=== PATIENT | male | born 1955 | race Caucasian/White ===

== ENCOUNTER → 2016-12-10 | Outpatient (CLI) | payer OTHER ==
[~2016-12-10] MED LIST: IOPAMIDOL (ISOVUE-300) 50 ML VIAL IV ONE
--- NOTE | 2016-12-10 11:07 | CT ---
CT Scan of the Abdomen triple phase (With Contrast) 0840 hours History: History of right nephrectomy for renal cell cancer. Cirrhosis. Hypodense lesion left lobe liver seen on ultrasound. Technique: Axial computed tomographic images of the abdomen were obtained precontrast and with the un eventful intravenous administration of 100 mL Isovue-300 contrast during arterial, venous, and delaye d phase. Oral contrast was also administered. Images were reviewed in multiple planes. Dose reduction techniques were utilized. CT Abdomen Findings: Lung bases: Normal. Liver: There is lobulated contour to the liver suggestive of underlying cirrhosis. No focal liver les ion is seen during all phases of imaging with attention left lobe lateral segment centrally to corres pond with abnormality seen on prior ultrasound exam. The liver measures 19 cm in length. Spleen: Mild to moderately enlarged measuring 16.1 x 15 x 9.4 cm. No focal splenic lesion is seen. Gallbladder and Bile Ducts: Numerous small less than 5 mm gallstones are layering in the dependent a spect of the gallbladder. There is no gallbladder wall thickening or pericholecystic fluid. There is no biliary ductal dilatation. Pancreas: Normal. Adrenals: Normal. Kidneys: Postoperative changes from previous right nephrectomy are noted. The left kidney enhances no rmally without evidence of focal mass. There is no evidence of renal calculus or hydronephrosis. Abdominal Aorta: No aneurysm. Bowel Loops: Normal. No bowel obstruction, ascites, or significant retroperitoneal lymphadenopathy. Skeletal system: Vertebral body heights are well-maintained. There are no significant lytic or scler otic osseous lesions. Mild disk bulges are noted at L4-L5 and L5-S1 along with facet hypertrophy cont ributes to underlying spinal stenosis. Impression: 1. Lobulated contour to the liver compatible with underlying cirrhosis. 2. No evidence of mass within the liver with attention left lobe lateral segment to correspond with a bnormality seen on recent ultrasound study. Consider followup ultrasound in 6 months to evaluate for any potential change. Alternatively, if a more aggressive approach is desired then MRI of the abdomen with contrast may be considered. 3. Mild to moderate splenomegaly. 4. Previous right nephrectomy.
== END ==
LOC: FIMAGING 07:57
PROVIDERS: ATTEND Internal Medicine
DX: K76.9 Liver disease, unspecified (principal); Z90.5 Acquired absence of kidney
CPT/HCPCS: Q9967

== ENCOUNTER 2017-06-09 06:31 | Inpatient (IN) | payer OTHER ==
[2017-06-09] MEDS ORDERED: NS 1,000 ML IV ONE ×2 (07:01→07:25)
[2017-06-09 07:13] LABS: % IMMATURE GRANULYOCYTES 0.4 % (0.0-1.1); ABSOLUTE IMMATURE GRANULOCYTES 0.02 10^3/uL (0.00-0.10); ADD DIFF? NO; ADD MORPH? NO; ADD SCAN? YES; APTT 29.9 SEC (23.0-38.0); ATYPICAL LYMPHOCYTE FLAG 0 (0-99); FRAGMENT RBC FLAG 0 (0-99); HEMATOCRIT 40.9 % (40.0-51.0); INR 1.5 (0.83-1.16); LEFT SHIFT FLG 0 (0-99); LIPEMIA HEMOLYSIS FLAG 90 (0-99); MEAN CELL HEMOGLOBIN 36.6 pg (27.9-34.1); MEAN CELL HEMOGLOBIN CONCENTR. 34.2 g/dL (32.4-36.7); MEAN CELL VOLUME 107.1 fL (81.5-99.8); MEAN PLATELET VOLUME 11.5 fL (8.7-11.7); PLATELET CLUMPS FLAG 10 (0-99); PLATELET COUNT 63 10^3/uL (150-400); PROTIME(PATIENT) 18.1 SEC (12.0-15.0); RED BLOOD CELL COUNT 3.82 10^6/uL (4.40-6.38); RED CELL DISTRIBUTION WIDTH 14.5 % (11.5-15.2)
--- NOTE | 2017-06-09 07:15 | CPEKG ---
Heart Rate: 110 RR Interval: 545 P-R Interval: 172 QRSD Interval: 82 QT Interval: 356 QTC Interval: 482 P Easton: 57 QRS Easton: 72 T Wave Easton: 38 EKG Severity - BORDERLINE ECG - EKG Impression: SINUS TACHYCARDIA EKG Impression: BORDERLINE PROLONGED QT INTERVAL Electronically Signed By: Javier Cross 09-Jun-2017 09:30:18
[2017-06-09 07:19] LABS: ALANINE AMINOTRANSFERASE 70 IU/L (21-72); ALBUMIN 3.5 g/dL (3.5-5.0); ALKALINE PHOSPHATASE 227 IU/L (38-126); ANION GAP 16 mEq/L (8-16); ASPARTATE AMINOTRANSFERASE 137 IU/L (17-59); BILIRUBIN,TOTAL 2.3 mg/dL (0.1-1.4); BILIRUBIN-CONJUGATED 1.3 mg/dL (0.0-0.5); CALCIUM 8.7 mg/dL (8.5-10.4); CARBON DIOXIDE 16 mEq/l (22-31); CHLORIDE 110 mEq/L (97-110); GLOMERULAR FILTRATION RATE 34; GLUCOSE 154 mg/dL (70-100); POTASSIUM 4.2 mEq/L (3.5-5.2); SODIUM 142 mEq/L (134-144); TOTAL PROTEIN 7.7 g/dL (6.3-8.2)
[2017-06-09 07:27] LABS: SCAN NEGATIVE
[2017-06-09 07:31] LABS: TROPONIN I < 0.012 ng/mL (0-0.034)
[2017-06-09 07:40] LABS: ETHANOL SERUM 358 mg/dL (0-10)
[2017-06-09 08:03] LABS: LACGHOST ORDER
--- NOTE | 2017-06-09 08:18 | EDPHY ---
H & P Time Seen by Provider: 06/09/17 06:59 HPI/ROS: CC--AMS Patient is a 61-year-old male presents per EMS with complaint of confusion that was present upon awakening this morning. Drank alcohol last night. He is stumbling ataxic and not making sense and is confused. He has a history of sepsis from cellulitis of his legs. He was apparently normal yesterday. They are not aware of fever or cough or urinary symptoms. No vomiting. They are not aware that he has fallen or struck his head. Complete review of systems significant for ataxia, confusion Past Medical/Surgical History: Past medical history significant for pulmonary embolus, obesity, bacterial infection lower leg requiring surgery and causing sepsis. 1 kidney secondary to nephrectomy for kidney cancer. Social History: , nonsmoker, recent alcohol Smoking Status: Never smoked Physical Exam: General Appearance: Alert well-developed male moderate distress vital signs show temp 37.4degrees, heart rate 117, blood pressure 137/46 Eyes: Pupils equal and round no pallor or injection. ENT, Mouth: Mucous membranes are moist. Respiratory: There are no retractions, lungs are clear to auscultation. Cardiovascular: Regular rate and rhythm. Gastrointestinal: Abdomen is soft and nontender, no masses, bowel sounds normal. Neurological: Awake and alert, sensory and motor exams grossly normal. Skin: Warm and dry, no rashes. Musculoskeletal: Neck is supple nontender. Extremities both extremities are swollen and erythematous rash to both legs consistent with cellulitis Psychiatric: Patient is oriented to person Constitutional: Initial Vital Signs Temperature (C) 37.4 C 06/09/17 06:35 Heart Rate 117 H 06/09/17 06:35 Respiratory Rate 28 H 06/09/17 06:35 Blood Pressure 137/46 H 06/09/17 06:35 O2 Sat (%) 93 06/09/17 06:35 O2 Delivery Mode Nasal Cannula O2 (L/minute) 2 Allergies/Adverse Reactions: No Known Allergies Allergy (Verified 07/16/16 08:35) Home Medications: Medication Instructions Recorded Lisinopril/Hctz 20/12.5MG 1 ea PO DAILY 07/16/16 [Zestoretic/Prinzide 20/12.5MG (*)] Multivitamins [Multivitamin (*)] 1 each PO DAILY 07/16/16 amLODIPine BESYLATE [Norvasc 5 mg 5 mg PO DAILY 07/16/16 (*)] Medical Decision Making - Diagnostics EKG Interpretation: EKG interpreted by me shows sinus tachycardia with normal interval axis. QRS is normal there is no significant ST elevation or depression. The rate is 110 Imaging Results: Imaging Impressions Head CT 06/09/17 07:24 Impression: 1. No evidence for acute intracranial abnormality. 2. Mild periventricular and deep hemispheric white matter change that can be seen with small vessel ischemic disease. 3. Mild generalized cerebral atrophy. Head CT discussed with Dr. Albarado and reviewed by me shows atrophy but otherwise nonacute Procedures: IV normal saline, monitor. Sepsis workup. Sepsis is identified. Patient is given fluid bolus. He is given Zosyn as antibiotic. ED Course/Re-evaluation: Serial evaluations patient remains stable in largely unchanged. The patient, his and son and I discussed imaging, lab results, treatment plan including admission and further evaluation. They expressed understanding and agreement I consulted and discussed case Dr. weiss, hospitalist, who agrees to the admission. We agree to put the patient in the ICU. Differential Diagnosis: The patient has evidence of sepsis. He has had previous sepsis secondary to leg cellulitis. He does have evidence for cellulitis today an elevated lactate. He has altered mental status and has alcohol intoxication with a blood alcohol of approximately 360. The patient also has liver failure with elevated ammonia level which could cause or contribute to altered mental status. He has 1 kidney with elevated creatinine. Critical Care Time: Critical care time exclusive procedures 40 minutes - Data Points Laboratory Results: Laboratory Results 06/09/17 06:50 06/09/17 06:50 06/09/17 06/09/17 06/09/17 06:50 06:50 06:50 WBC RBC Hgb POC Hgb Hct POC Hct MCV MCH MCHC RDW Plt Count MPV Neut % (Auto) Lymph % (Auto) Young % (Auto) Eos % (Auto) Baso % (Auto) Nucleat RBC Rel Count Absolute Neuts (auto) Absolute Lymphs (auto) Absolute Monos (auto) Absolute Eos (auto) Absolute Basos (auto) Absolute Nucleated RBC Immature Gran % Immature Gran # PT 18.1 SEC H SEC (12.0-15.0) INR 1.50 H (0.83-1.16) APTT 29.9 SEC SEC (23.0-38.0) VBG Lactic Acid POC Sodium Sodium 142 mEq/L mEq/L (134-144) POC Potassium Potassium 4.2 mEq/L mEq/L (3.5-5.2) POC Chloride Chloride 110 mEq/L mEq/L (97-110) Carbon Dioxide 16 mEq/l L mEq/l (22-31) Anion Gap 16 mEq/L mEq/L (8-16) POC BUN BUN 27 mg/dL H mg/dL (7-23) Creatinine 2.0 mg/dL H mg/dL (0.7-1.3) POC Creatinine Estimated GFR 34 Glucose 154 mg/dL H mg/dL (70-100) POC Glucose Calcium 8.7 mg/dL mg/dL (8.5-10.4) Total Bilirubin 2.3 mg/dL H mg/dL (0.1-1.4) Conjugated Bilirubin 1.3 mg/dL H mg/dL (0.0-0.5) Unconjugated Bilirubin 1.0 mg/dL mg/dL (0.0-1.1) AST 137 IU/L H IU/L (17-59) ALT 70 IU/L IU/L (21-72) Alkaline Phosphatase 227 IU/L H IU/L (38-126) Ammonia 42.0 uMOL/L H uMOL/L (9.0-30.0) Troponin I < 0.012 ng/mL ng/mL (0-0.034) NT-Pro-B Natriuret Pep 76 pg/mL pg/mL (0-125) Total Protein 7.7 g/dL g/dL (6.3-8.2) Albumin 3.5 g/dL g/dL (3.5-5.0) Ethyl Alcohol 358 mg/dL H mg/dL (0-10) 06/09/17 06/09/17 06/09/17 06:50 06:50 06:44 WBC 5.22 10^3/uL 10^3/uL (3.80-9.50) RBC 3.82 10^6/uL L 10^6/uL (4.40-6.38) Hgb 14.0 g/dL g/dL (13.7-17.5) POC Hgb 16.0 gm/dL gm/dL (13.7-17.5) Hct 40.9 % % (40.0-51.0) POC Hct 47 % % (40-51) MCV 107.1 fL H fL (81.5-99.8) MCH 36.6 pg H pg (27.9-34.1) MCHC 34.2 g/dL g/dL (32.4-36.7) RDW 14.5 % % (11.5-15.2) Plt Count 63 10^3/uL L 10^3/uL (150-400) MPV 11.5 fL fL (8.7-11.7) Neut % (Auto) 82.6 % H % (39.3-74.2) Lymph % (Auto) 14.0 % L % (15.0-45.0) Young % (Auto) 1.7 % L % (4.5-13.0) Eos % (Auto) 1.1 % % (0.6-7.6) Baso % (Auto) 0.2 % L % (0.3-1.7) Nucleat RBC Rel Count 0.0 % % (0.0-0.2) Absolute Neuts (auto) 4.31 10^3/uL 10^3/uL (1.70-6.50) Absolute Lymphs (auto) 0.73 10^3/uL L 10^3/uL (1.00-3.00) Absolute Monos (auto) 0.09 10^3/uL L 10^3/uL (0.30-0.80) Absolute Eos (auto) 0.06 10^3/uL 10^3/uL (0.03-0.40) Absolute Basos (auto) 0.01 10^3/uL L 10^3/uL (0.02-0.10) Absolute Nucleated RBC 0.00 10^3/uL 10^3/uL (0-0.01) Immature Gran % 0.4 % % (0.0-1.1) Immature Gran # 0.02 10^3/uL 10^3/uL (0.00-0.10) PT INR APTT VBG Lactic Acid 4.5 mmol/L H mmol/L (0.7-2.1) POC Sodium 142 mEq/L mEq/L (134-144) Sodium POC Potassium 4.0 mEq/L mEq/L (3.3-5.0) Potassium POC Chloride 103 mEq/L mEq/L (97-110) Chloride Carbon Dioxide Anion Gap POC BUN 27 mg/dL H mg/dL (7-23) BUN Creatinine POC Creatinine 2.3 mg/dL H mg/dL (0.7-1.3) Estimated GFR Glucose POC Glucose 156 mg/dL H mg/dL (70-100) Calcium Total Bilirubin Conjugated Bilirubin Unconjugated Bilirubin AST ALT Alkaline Phosphatase Ammonia Troponin I NT-Pro-B Natriuret Pep Total Protein Albumin Ethyl Alcohol Medications Given: Discontinued Medications Sodium Chloride (Ns) 1,000 mls @ 0 mls/hr IV ONCE ONE; Wide Open PRN Reason: Protocol Stop: 06/09/17 07:02 Last Admin: 06/09/17 07:30 Dose: 1,000 mls Sodium Chloride (Ns) 1,000 mls @ 0 mls/hr IV ONCE ONE; Wide Open PRN Reason: Protocol Stop: 06/09/17 07:26 Last Admin: 06/09/17 09:00 Dose: 1,000 mls Point of Care Test Results: 06/09/17 06:44 POC Sodium 142 POC Potassium 4.0 POC Chloride 103 POC BUN 27 H POC Creatinine 2.3 H POC Glucose 156 H Departure - Departure Disposition: [facility] Inpatient Acute Clinical Impression: elevated lactate Cellulitis Qualifiers: Site of cellulitis: extremity Site of cellulitis of extremity: lower extremity Laterality: unspecified laterality Qualified Code(s): L03.119 - Cellulitis of unspecified part of limb Altered mental status Qualifiers: Altered mental status type: disorientation Qualified Code(s): R41.0 - Disorientation, unspecified Alcohol intoxication Qualifiers: Complication of substance-induced condition: with unspecified complication Qualified Code(s): F10.929 - Alcohol use, unspecified with intoxication, unspecified Condition: Fair
[2017-06-09] MEDS ORDERED: SODIUM CHLORIDE IV ONE (08:38)
[2017-06-09] MEDS ORDERED: PIPERACILLIN/TAZO 4.5 GM/DEX 100 ML IV ONE (08:38)
[2017-06-09] MEDS ORDERED: ONDANSETRON DISINTEGRATING 4 MG TAB PO PRN (11:01)
[2017-06-09] MEDS ORDERED: ONDANSETRON 4 MG/2 ML VIAL IVP PRN (11:01)
--- NOTE | 2017-06-09 11:51 | GHP ---
[f rep st] HISTORY AND PHYSICAL DATE OF ADMISSION: 06/09/2017 CHIEF COMPLAINT: Confusion. HISTORY OF PRESENT ILLNESS: This is a 61-year-old man with a history of severe cellulitis with a sm all amount of necrotizing fasciitis who presents with confusion. Apparently, last night, they had a big constitution party and he consumed a lot of alcohol. He awoke this morning confused, stumbling. He denies any nausea, vomiting, headache, chest pain, shortness of breath, abdominal pain. He does have somew hat chronic venostasis issues on his bilateral legs. He thinks that his left leg looks redder than it normally does. It is somewhat painful. He also notes that he had significant chills this poojanin g. PAST MEDICAL/SURGICAL HISTORY: 1. Hypertension. 2. History of a PE in 2006, currently not on anticoagulation. 3. Morbid obesity. 4. History of cellulitis as well as necrotizing fasciitis, status post [place]brid[place] [address] Dashawn carr. 5. Renal cell carcinoma, status post nephrectomy. 6. Obstructive sleep apnea. MEDICATIONS: Please see medication reconciliation. ALLERGIES: No known drug allergies. FAMILY HISTORY: Denies. SOCIAL HISTORY: Drinks alcohol occasionally. Does not smoke. REVIEW OF SYSTEMS: 10-point review of systems is conducted and is negative except per HPI. PHYSICAL EXAM: VITAL SIGNS: Initial blood pressure 137/46, initial heart rate 117, initial respira tion rate 23, satting 93% on room air, temperature is 37.4. GENERAL: The patient is a pleasant, ob gonzalo man who appears somewhat uncomfortable. He is answering questions slightly slowly. HEENT: Claire ws him to be normocephalic, atraumatic. CARDIOVASCULAR: Shows him to be borderline tachycardic. T here are no murmurs, rubs, or gallops. PULMONARY: Shows him to be quite tachypneic, though his helene gs are clear to auscultation bilaterally. ABDOMEN: Obese. Otherwise, soft, nontender, nondistende d. SKIN: Shows his bilateral lower extremities to have somewhat chronic dermatitis with a dark red appearance. On his left lower extremity, he has progressive erythema, which is warm as well as luisito ewhat tender to palpation. He does have some pain beyond the line of erythema as well. : Shows no Hinkle. NEUROLOGIC: Shows him to be alert and oriented x3. He is answering questions slightly s lowly. He does not have a focal neurologic exam. PSYCHIATRIC: Shows normal mood and affect. LABS: White count is 5.2, platelets are 63, MCV is 107. INR is 1.5. Initial lactate was 4.5, subs equent lactate was 4.4. Creatinine is 2.0, bicarb is 16, total bili is 2.3, alk phos is 227, ammoni a is 42. Troponins negative. Procalcitonin is pending. Blood alcohol level at 6:50 this morning w as 0.358. DATA: 1. I discussed with Dr. Arechiga, who will consult. 2. I reviewed his head CT, which shows nothing acute. 3. I personally viewed and interpreted his chest x-ray, which shows him to be obese but no acute ca rdiopulmonary disease. 4. EKG, which I personally viewed and interpreted, shows sinus tachycardia. He does have a borderl ine prolonged QT interval. IMPRESSION AND PLAN: 61-year-old man who presents with severe sepsis. 1. Severe sepsis: Kidney injury as well as significant lactic acidosis. He is undergoing appropri ate volume resuscitation currently. We will place a peripherally inserted central catheter line for stable intravenous access. I think the source is his left lower extremity. 2. Left lower extremity cellulitis: He does have a history of necrotizing fasciitis, status post d ebridement. We will put him on empiric vancomycin and Zosyn. I have asked Dr. Arechiga to consult as well to consider debridement. We will place a nonurgent infectious disease consult, also. 3. Alcohol abuse: He does have a significant blood alcohol level currently. I do not think that i s causing his underlying presentation, though it may complicate his care. He did not have an issue with withdrawing on his past hospitalization. He seems to be more of a binge drinker than a chronic daily user. We will follow this very closely, provide thiamine for now. I am concerned about putt ing him on Clinical [place] Withdrawal Assessment, given his initial presentation with encephalopa thy. He may need to be placed on Clinical [place] Withdrawal Assessment at some point. 4. Thrombocytopenia: This is somewhat of a chronic problem, though acutely worse. May have a slig ht component of disseminated intravascular coagulation with his elevated INR and low platelets. We will check a DIC panel. 5. Elevated MCV: This would argue more for chronic daily use of alcohol. As above, we will follow closely for withdrawal. 6. Encephalopathy: I think that this is best explained by acute infection. Certainly, also consid er alcohol intoxication and withdrawal. CT head was negative. 7. Morbid obesity. 8. Acute kidney injury: He only has 1 kidney. This is due to a nephrectomy for renal cell carcino ma. Follow this closely. 9. History of a pulmonary embolus in 2006: He is currently off anticoagulation. 10. Code status: He would like to be full code. /[id number]/MODL
[2017-06-09] MEDS ORDERED: VANCOMYCIN 1.5 GM in D5W 250 ML IV ONE (12:00)
[2017-06-09 12:17] LABS: % IMMATURE GRANULYOCYTES 1.7 % (0.0-1.1); ABSOLUTE IMMATURE GRANULOCYTES 0.12 10^3/uL (0.00-0.10); ADD DIFF? NO; ADD MORPH? NO; ADD SCAN? NO; ATYPICAL LYMPHOCYTE FLAG 0 (0-99); FRAGMENT RBC FLAG 0 (0-99); HEMATOCRIT 34.6 % (40.0-51.0); HEMOGLOBIN 12.2 g/dL (13.7-17.5); LEFT SHIFT FLG 10 (0-99); LIPEMIA HEMOLYSIS FLAG 90 (0-99); MEAN CELL HEMOGLOBIN 37.7 pg (27.9-34.1); MEAN CELL HEMOGLOBIN CONCENTR. 35.3 g/dL (32.4-36.7); MEAN CELL VOLUME 106.8 fL (81.5-99.8); MEAN PLATELET VOLUME 12.3 fL (8.7-11.7); PLATELET CLUMPS FLAG 10 (0-99); RED BLOOD CELL COUNT 3.24 10^6/uL (4.40-6.38); RED CELL DISTRIBUTION WIDTH 14.6 % (11.5-15.2)
[2017-06-09 12:19] LABS: PLATELET COUNT 44 10^3/uL (150-400)
[2017-06-09 12:24] LABS: INR 1.77 (0.83-1.16); PROTIME(PATIENT) 20.7 SEC (12.0-15.0)
[2017-06-09 12:25] LABS: APTT 30.7 SEC (23.0-38.0); FIBRINOGEN 246 mg/dL (214-456)
[2017-06-09 12:30] LABS: ALANINE AMINOTRANSFERASE 64 IU/L (21-72); ALBUMIN 2.6 g/dL (3.5-5.0); ALKALINE PHOSPHATASE 140 IU/L (38-126); ANION GAP 14 mEq/L (8-16); ASPARTATE AMINOTRANSFERASE 122 IU/L (17-59); BILIRUBIN,TOTAL 2.7 mg/dL (0.1-1.4); BILIRUBIN-CONJUGATED 1.4 mg/dL (0.0-0.5); BILIRUBIN-UNCONJUGATED 1.3 mg/dL (0.0-1.1); CALCIUM 7.7 mg/dL (8.5-10.4); CARBON DIOXIDE 14 mEq/l (22-31); CHLORIDE 110 mEq/L (97-110); GLOMERULAR FILTRATION RATE 34; GLUCOSE 115 mg/dL (70-100); POTASSIUM 4.3 mEq/L (3.5-5.2); SODIUM 138 mEq/L (134-144); TOTAL PROTEIN 6.1 g/dL (6.3-8.2)
[2017-06-09 12:39] LABS: PLATELET COUNT 44 10^3/uL (150-400); PLATELET ESTIMATE DECREASED (ADEQ)
[2017-06-09 13:11] LABS: COLOR YELLOW; LEUKOCYTE ESTERASE,URINE NEGATIVE (NEGATIVE); NITRITE,URINE NEGATIVE (NEGATIVE)
[2017-06-09] MEDS ORDERED: HEPARIN 5,000 UNIT/0.5 ML SYR SC SCH (14:00)
--- NOTE | 2017-06-09 14:21 | GCON ---
[f rep st] CONSULTATION DATE OF CONSULTATION: 06/09/2017 CHIEF COMPLAINT: Question necrotizing fasciitis. REQUESTING PHYSICIAN: Dr. Elias Krueger. HISTORY OF PRESENT ILLNESS: The patient is a 61-year-old man well known to me as I debrided his leg and performed split-thickness skin graft in 2013. He presented to the hospital today due to confusion. He reports that he has pain in his left leg and chills. He presented to the emergency room where he was tachycardic. PAST MEDICAL HISTORY: 1. Hypertension. 2. History of PE in 2006. 3. Morbid obesity. 4. History of cellulitis and necrotizing fasciitis. 5. Renal cell carcinoma, status post nephrectomy. 6. Obstructive sleep apnea. ALLERGIES: No known drug allergies. PAST SURGICAL HISTORY: Knee arthroscopy, nephrectomy, tonsillectomy. 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 He previously used tobacco. He is FAMILY HISTORY: Significant for breast cancer in his mother. REVIEW OF SYSTEMS: Significant for weakness, some confusion, chills, otherwise , 10-point review of systems negative. PHYSICAL EXAMINATION: VITAL SIGNS: Reviewed. He is afebrile. He is tachycardic. He is normotensive. GENERAL: Pleasant, morbidly obese man, sitting up in bed, in ICU with family at bedside. HEENT: Normocephalic. No gross hearing deficits. Mucous membranes moist. Pupils equal and round. No scleral icterus. LUNGS: Clear to auscultation bilaterally. No increased work of breathing. CARDIAC: Regular rate. EXTREMITIES: He has venous stasis changes on bilateral lower extremities but no obvious wounds. He does have some scaling lesions. Both of his lower legs are warm to the touch, left more than right. He is most tender to his left posterior calf. Mild erythema on left leg. IMPRESSION AND PLAN: The patient is a 61-year-old man with a history of nec fasc who presented with confusion. His bilirubin is elevated as well as his ammonia. Platelets are low at 44. I do not see any signs of necrotizing fasciitis, nor indication to go to the operating room. I do suggest an ultrasound of his leg to rule out DVT as he is tender at the calf. I will continue to follow. /[id number]/MODL MTDD
[2017-06-09] MEDS ORDERED: LIDOCAINE 1% 300 MG/30 ML SDV ONE (14:26)
[2017-06-09] MEDS ORDERED: NOREPINEPHRINE/NS 500 ML IV SCH (14:30)
[2017-06-09] MEDS ORDERED: PHENYLEPHRINE HCL 50 MG in D5W 250 ML IV SCH (14:30)
[2017-06-09] MEDS: PIPERACILLIN/TAZO 3.375 GM/DEX 50 ML IV SCH ×2 (14:45→22:08)
[2017-06-09] MEDS: THIAMINE HCL 100 MG in NS 100 ML IV SCH (14:54)
--- NOTE | 2017-06-09 15:02 | HOSPPROG ---
Hospitalist Progress Note Assessment/Plan: Patient visited again in the ICU. He is hypotensive, has a climbing lactate despite aggressive IVF, has ongoing tachypnea. Dr Arechiga does not feel he has necrotizing fasciitis, and his leg appears slightly better on repeat assessment. Consider other causes of hypotension (cardiac, PE). Plan: - add clinda for possible strep cellulitis - check echo, LE US - PICC placed, start pressors - critical care c/s - discussed with Dr Degroot additional 40 mins of floor critical care time managing septic shock in addition to time spent on initial admission Objective: Vital Signs Temp Pulse Resp BP Pulse Ox 37.6 C 103 H 26 H 103/67 93 06/09/17 09:52 06/09/17 10:09 06/09/17 10:09 06/09/17 10:09 06/09/17 10:09 Laboratory Results 06/09/17 11:50 06/09/17 11:50 06/08/17 06/09/17 06/10/17 05:59 05:59 05:59 Intake Total 2100 Balance 2100 PT 20.7 SEC (12.0-15.0) H 06/09/17 11:50 INR 1.77 (0.83-1.16) H 06/09/17 11:50 ICD10 Worksheet Patient Problems: Problems Problem Status Onset Sepsis Acute Necrotizing fasciitis Acute Hypotension Acute Dizziness Acute Dyspnea Acute Cellulitis Acute Altered mental status Acute Alcohol intoxication Acute
[2017-06-09 15:24] LABS: MIXED VENOUS O2 SATURATION 73 % (65-75)
[2017-06-09] MEDS: CLINDAMYCIN 600 MG/DEXTROSE 50 ML IV SCH ×2 (15:51→20:58)
[2017-06-09] MEDS: LORazepam 2 MG/ML INJ IVP PRN (16:07)
--- NOTE | 2017-06-09 16:57 | GCON ---
[f rep st] CONSULTATION CRITICAL CARE CONSULT DATE OF CONSULTATION: 06/09/2017 HISTORY OF PRESENT ILLNESS: The patient is a 61-year-old male with a history of alcoholism and prev ious necrotizing fasciitis of his left lower extremity that required skin grafting. He had apparent ly consumed quite a bit of alcohol last night and woke this morning quite confused with lots of chil ls. His noted that his left leg had significant redness that was very similar to his previous episode of necrotizing fasciitis. In addition, he said that his blood pressure was quite low at ramez e and came to the emergency department. His blood pressure was 137/46 initially, but his lactate wa s quite high at a little over 4. In any case, he was afebrile and had no white count, but they were quite concerned about necrotizing fasciitis. He was started on the severe sepsis protocol and give n some IV fluids, but when he landed in the intensive care unit, his blood pressure was indeed low w ith a systolic in the 70s. He received 30 mL/kg fluid bolus, and that normalized his blood pressure . He was less confused, and his said that the erythema was substantially better, and this was about 3 or 4 hours after receiving Zosyn, vancomycin, and clindamycin. In terms of other localizing symptoms, the patient said that he had no neck pain or visual changes. He had no nasal congestion, postnasal drip, or recent sinusitis. No sore throat. No shortness of breath. No known sick contacts. No cough, no sputum production, no hemoptysis. No chest pain. No palpitations. No abdominal pain. No nausea, vomiting. No diarrhea. No recent antibiotics. No u rinary frequency or dysuria. No recent trauma. No recent infections of his lower extremities. He does have sleep apnea and said that he is pentecostal with his CPAP though has a fair amount of lower extremity edema and is morbidly obese. REVIEW OF SYSTEMS: Otherwise negative PAST MEDICAL HISTORY: 1. Hypertension. 2. Pulmonary embolism in 2006. 3. Morbid obesity. 4. Necrotizing fasciitis. 5. Renal cell carcinoma, status post nephrectomy. 6. Chronic renal insufficiency with a baseline creatinine about 1.3-1.7. 7. Obstructive sleep apnea. PAST SURGICAL HISTORY: Includes fasciotomy as described above with a skin graft [place] [address] Antoni palm. SOCIAL HISTORY: He does drink alcohol occasionally. No tobacco. There may have been an alcohol pr oblem. FAMILY HISTORY: Noncontributory at this time. ALLERGIES: None. MEDICATIONS: At this time include clindamycin, Zofran, Zosyn, vancomycin, and normal saline with kingsley bcutaneous heparin. PHYSICAL EXAMINATION: VITAL SIGNS: He remained afebrile at 37.6, blood pressure was 103/67, heart rate of 103, respiratory rate 26, oxygen saturation 93% on 2 L. GENERAL: He was, in fact, morbidly obese but was awake, alert, and was tachypneic but said he was not short of breath and did not appe ar to be in any distress. He was alert and oriented x3 and able to speak in full sentences. HEENT: Pupils are equally round, reactive to light, nonicteric, and noninjected. Mucous membranes are mo ist without erythema or exudate. NECK: Supple without adenopathy or jugular vein distention. Karlene th sounds were clear to auscultation bilaterally without wheezes, rubs, or rales. HEART: Appeared to have a regular rate and rhythm although sounds were distant. I did not detect any obvious murmur . ABDOMEN: Soft, nontender, nondistended without obvious hepatomegaly and no signs of cirrhosis. EXTREMITIES: Showed bilateral severe edema. There was skin graft in the left lower extremity with patchy erythema, very light pink erythema toward the knee which looks like he had a previous knee kingsley rgery. There was not a clear line of demarcation in this region. There were also areas of erythema on the right lower extremity that were lower toward his ankle in an area that was about 5 x 10 cm. Both legs were warm and dry without cyanosis. NEUROLOGICAL: Grossly nonfocal including cranial ne rves, deep tendon reflexes. OBJECTIVE DATA: White count that was 5.2 at 6:50 this morning up to 7.2 at 11:50. His hematocrit w as 34.6, platelets of 44, INR 1.7. D-dimer was positive. Lactate was 4.5 this morning again at 06: 50. It was up to 4.8 at 11:50, and at 1500, back down to 4.5. Basic metabolic panel was remarkable for a sodium of 138, potassium 4.3, chloride 110, bicarb of 14, BUN 28, creatinine 2.0. Total bili yang was 2.7. AST was 122, down from 137. ALT was 64, alkaline phosphatase 140. BNP was 76. Tro ponin was negative. Ammonia was 42. Procalcitonin was 0.68. Urinalysis was unremarkable. Alcohol was 358 this morning at 0650. A chest x-ray was unremarkable. ASSESSMENT AND PLAN: 1. Hypotension: This certainly could be due to sepsis although there are multiple confounding vari wanda here. Could also be due to hypovolemia though the clinical history does not support this very well. Lactic acidosis can be seen in alcohol but usually involves ketones that may be present in t he serum and not in the urine. His lack of a fever and white count is also incongruent with a septi c shock picture. In either case, I think given the erythema reported by both him and his and t he lactic acidosis, I think that treatment with broad-spectrum antibiotics which he is getting now i s appropriate including clindamycin. I do not think there is necrotizing fasciitis. At this point, he has been evaluated by Dr. Arechiga who also agrees. An ultrasound is pending to look for DVT since that has been an issue in the past. The procalcitonin level is 0.68. There is probable bacterial infection, and this is supportive of doing this moving forward. 2. Confusion: This certainly could have been related to his hypotension which is now resolved as w ell as ongoing alcoholism. He appears to be perfectly stable at this time. 3. Acute kidney injury with a solitary kidney from his previous nephrectomy. This is likely relate d to his hypotension. His creatinine is only up slightly to 2 from a high of 1.7 at baseline to 2.0 . He has quite a bit of urine output at this time. I think we should simply monitor this. 4. Thrombocytopenia: This looks to be acute on chronic. He has known splenomegaly on an abdominal CT scan from December of this year, and this again could be related to sepsis and disseminated intra vascular coagulation which is very common. This should resolve on its own. My suspicion for hepari n-induced thrombocytopenia is quite low as well as drug induced issues or thrombotic thrombocytopeni c purpura. Ongoing monitoring is appropriate for this particular problem. 5. Abnormal liver function tests with an elevated AST and INR: This is consistent with a low level of alcoholic hepatitis and should resolve on its own. Though I did not calculate his discriminant function at this time, I do not feel that steroids would be useful currently. A total of about 65 minutes of critical care time was required in the evaluation of this patient wit h multiorgan dysfunction. /[id number]/MODL
--- NOTE | 2017-06-09 17:08 | ECHO ---
[id number] + + [address] : : [place] [address] : : [phone] + + Adult Echocardiographic Report + -------+ :Name: JOEL FABIO TStudy Date: 06/09/2017 04:58 PM : : Hospital Admission Number: [id number] Locati on: 248: :: 1955 Gender: Male : :Age: 61 yrs Race: WH : :Reason For Study: Hypotension/Sepsis : + -------+ MMode/2D Measurements \T\ Calculations LVIDd: 4.3 cm EDV(Teich): 84.7 ml Ao root diam: 3.3 cm LA dimension: 4.2 cm Normal Measurement Values: + + :LVIDd (3.5-5.7cm) IVSd (0.6-1.1cm) LVPWd (0.6-1.1cm) Aortic Root (2.0-3.7cm)Left Atrium (1.5-4.0cm): :LV Vol(d) (76-115ml) LV Vol(s) (29-48ml) Ejec Fraction (50-65%)PV Brandon (0.6- 1.2m/s) TV Brandon (0.4-1.0m/s) : :MV E Brandon (0.8-1.0m/s)MV A Brandon (0.3-1.0m/s)LVOT Brandon (0.7-1.2m/s) Asc Ao Brandon ( 0.9-1.8m/s) : + + Doppler Measurements \T\ Calculations MV E max brandon: 67.6 cm/sec Ao V2 max: 149.3 cm/sec TR max brandon: 263.3 cm/sec MV A max brandon: 65.6 cm/sec Ao max P.9 mmHg TR max P.7 mmHg MV E/A: 1.0 RAP systole: 5.0 mmHg RVSP(TR): 32.7 mmHg Left Ventricle The left ventricle is normal in size. The left ventricle is hyperdynamic. Ejection Fraction = 70-75%. Right Ventricle The right ventricle is normal size. Atria The left atrial size is normal. Right atrial size is normal. Mitral Valve The mitral valve is normal. Tricuspid Valve The tricuspid valve is not well visualized. There is trace tricuspid regurgitation. Right ventricular systolic pressure is 33mmHg. Right ventricular systolic pressure is normal. Aortic Valve The aortic valve opens well. Pulmonic Valve The pulmonic valve is not well visualized. Great Vessels The aortic root is normal size. Pericardium/Pleural There is no pericardial effusion. There is a fat pad seen. Conclusion A complete two-dimensional transthoracic echocardiogram was performed (2D, M-mode, Doppler and color flow Doppler). This is a technically difficult study The left ventricle is hyperdynamic. Ejection Fraction = 70-75%. No obvious wall motion abnormalities, but subtle wall motion abnormalities cannot be ruled out There is trace tricuspid regurgitation. Right ventricular systolic pressure is 33mmHg. Right ventricular systolic pressure is normal. There is a fat pad seen. Likely no significant change compared with 07/17/2016 Final Reading Physician: Dr Nicole Rascon electronically signed on 06/09/2017 05:07 PM Ordering Physician: Kev Krueger Performed By: Apurva Jules RDCS
[2017-06-09 17:48] LABS: PCO2 VENOUS 21 mmHg (40-44); PH VENOUS BLOOD 7.38 (7.31-7.42); PO2 VENOUS 45 mmHg (35-40); TCO2 VENOUS 13 mEq/L (23-27); VEN MEASURED OXYGEN SATURATION 73 % (65-75)
[2017-06-09] MEDS: ACETAMINOPHEN 325 MG TAB PO PRN (18:01)
[2017-06-09] MEDS: NOREPINEPHRINE BITARTRATE 4 MG in NS 500 ML IV SCH ×2 (18:04→22:58)
[2017-06-09] MEDS: NS 1,000 ML IV SCH (20:01)
[2017-06-09] MEDS: VASOPRESSIN/DEXTROSE 250 ML IV SCH (20:52)
[2017-06-10] MEDS: NOREPINEPHRINE BITARTRATE 4 MG in NS 500 ML IV SCH ×2 (03:35→15:42)
[2017-06-10] MEDS: CLINDAMYCIN 600 MG/DEXTROSE 50 ML IV SCH (05:12)
[2017-06-10] MEDS: NS 1,000 ML IV SCH (05:13)
[2017-06-10 05:36] LABS: % IMMATURE GRANULYOCYTES 1.7 % (0.0-1.1); ABSOLUTE IMMATURE GRANULOCYTES 0.26 10^3/uL (0.00-0.10); ADD DIFF? NO; ADD MORPH? NO; ADD SCAN? YES; ATYPICAL LYMPHOCYTE FLAG 0 (0-99); FRAGMENT RBC FLAG 0 (0-99); HEMATOCRIT 33.4 % (40.0-51.0); HEMOGLOBIN 11.7 g/dL (13.7-17.5); LIPEMIA HEMOLYSIS FLAG 90 (0-99); MEAN CELL HEMOGLOBIN 37.6 pg (27.9-34.1); MEAN CELL VOLUME 107.4 fL (81.5-99.8); PLATELET CLUMPS FLAG 0 (0-99); RED BLOOD CELL COUNT 3.11 10^6/uL (4.40-6.38); RED CELL DISTRIBUTION WIDTH 14.2 % (11.5-15.2)
[2017-06-10 05:40] LABS: PLATELET COUNT 35 10^3/uL (150-400)
[2017-06-10 05:43] LABS: LEFT SHIFT FLG 190 (0-99); PLATELET COUNT 32 10^3/uL (150-400)
[2017-06-10 05:49] LABS: IONIZED CALCIUM 0.96 MMOL/L (1.12-1.30)
[2017-06-10 05:52] LABS: INR 2.07 (0.83-1.16); PROTIME(PATIENT) 23.4 SEC (12.0-15.0)
[2017-06-10 05:53] LABS: FIBRINOGEN 341 mg/dL (214-456)
[2017-06-10 05:56] LABS: ALANINE AMINOTRANSFERASE 70 IU/L (21-72); ALBUMIN 2.5 g/dL (3.5-5.0); ALKALINE PHOSPHATASE 65 IU/L (38-126); ANION GAP 11 mEq/L (8-16); ASPARTATE AMINOTRANSFERASE 160 IU/L (17-59); BILIRUBIN,TOTAL 2.9 mg/dL (0.1-1.4); CALCIUM 6.8 mg/dL (8.5-10.4); CARBON DIOXIDE 14 mEq/l (22-31); CHLORIDE 109 mEq/L (97-110); CREATININE 1.6 mg/dL (0.7-1.3); GLOMERULAR FILTRATION RATE 44; GLUCOSE 161 mg/dL (70-100); MAGNESIUM 1.1 mg/dL (1.6-2.3); POTASSIUM 4.7 mEq/L (3.5-5.2); SODIUM 134 mEq/L (134-144); TOTAL PROTEIN 5.9 g/dL (6.3-8.2)
[2017-06-10 05:58] LABS: SCAN NEGATIVE
[2017-06-10 06:03] LABS: BILIRUBIN-CONJUGATED 1.5 mg/dL (0.0-0.5); BILIRUBIN-UNCONJUGATED 1.4 mg/dL (0.0-1.1)
[2017-06-10] MEDS: PIPERACILLIN/TAZO 3.375 GM/DEX 50 ML IV SCH (06:09)
[2017-06-10] MEDS ORDERED: PROTOCOL POTASSIUM 1 DOSE MISC PRN (06:15)
[2017-06-10] MEDS ORDERED: PROTOCOL CALCIUM 1 DOSE IV PRN (06:15)
[2017-06-10] MEDS ORDERED: PROTOCOL MAGNESIUM 1 DOSE IV PRN (06:15)
[2017-06-10] MEDS ORDERED: MAGNESIUM SULF 2 GM/WATER 50 ML IV ONE ×2 (06:34→20:13)
[2017-06-10] MEDS ORDERED: CALCIUM GLUCONATE 50 ML IV ONE (06:34)
[2017-06-10] MEDS: VASOPRESSIN/DEXTROSE 250 ML IV SCH ×2 (06:38→15:41)
[2017-06-10] MEDS ORDERED: VANCOMYCIN 1.5 GM in D5W 250 ML IV ONE (08:30)
[2017-06-10] MEDS: THIAMINE HCL 100 MG in NS 100 ML IV SCH (08:37)
--- NOTE | 2017-06-10 08:39 | PDINTPN ---
Human Service Coordinator Progress Note Assessment/Plan: Assessment/Plan: * Sepsis/Septic shock-still on high-dose levo as well as vasopressin. -agree with NICOM -wean as tolerated. Consider addition of colloid. * Cellulitis-doubt necrotizing fasciitis -surgery following * Bacteremia * Thrombocytopenia * Confusion-resolved patient awake and alert * Morbid obesity * CRI * GIACOMO-on CPAP at night Case discussed with nursing. Subjective: Sitting up in bed resting comfortably. Only complains of left leg pain as well as low back pain. Denies any breathlessness, or chest pain. Objective: Vital Signs Temp Pulse Resp BP Pulse Ox 36.9 C 91 28 H 107/47 L 93 06/10/17 08:00 06/10/17 08:00 06/10/17 08:00 06/10/17 08:00 06/10/17 08:00 Laboratory Results 06/10/17 05:20 06/10/17 05:20 06/09/17 06/10/17 06/11/17 05:59 05:59 05:59 Intake Total 58857 550 Output Total 1700 150 Balance 8779 400 PT 23.4 SEC (12.0-15.0) H 06/10/17 05:20 INR 2.07 (0.83-1.16) H 06/10/17 05:20 Laboratory Results 06/10/17 05:20 06/10/17 05:20 06/10/17 06/10/17 06/10/17 05:20 05:20 05:20 PT 23.4 SEC H SEC (12.0 - 15.0) INR 2.07 H (0.83 - 1.16) APTT 38.0 SEC SEC (23.0 - 38.0) Fibrinogen 341 mg/dL mg/dL (214 - 456) D-Dimer 5.75 ug/mLFEU H ug/mLFEU (0.00 - 0.50) Calcium 6.8 mg/dL L mg/dL (8.5 - 10.4) Ionized Calcium 0.96 MMOL/L L MMOL/L (1.12 - 1.30) Phosphorus 3.3 mg/dL mg/dL (2.5 - 4.5) Magnesium 1.1 mg/dL L mg/dL (1.6 - 2.3) Total Bilirubin 2.9 mg/dL H mg/dL (0.1 - 1.4) Conjugated Bilirubin 1.5 mg/dL H mg/dL (0.0 - 0.5) Unconjugated Bilirubin 1.4 mg/dL H mg/dL (0.0 - 1.1) AST 160 IU/L H IU/L (17 - 59) ALT 70 IU/L IU/L (21 - 72) Alkaline Phosphatase 65 IU/L IU/L (38 - 126) Total Protein 5.9 g/dL L g/dL (6.3 - 8.2) Albumin 2.5 g/dL L g/dL (3.5 - 5.0) Procalcitonin 32.50 ng/mL H ng/mL (0.02 - 0.10) 06/09/17 08:03 Blood Culture - Preliminary Blood Gram Positive Cocci Clusters 06/09/17 07:30 Blood Culture - Preliminary Blood Blood Panel (PCR) - Final Gram Positive Cocci Clusters MRSA Physical Exam - Physical Exam General Appearance: alert, mild distress EENT: PERRL/EOMI, normal ENT inspection Neck: non-tender, full range of motion, supple, normal inspection Respiratory: chest non-tender, lungs clear Cardiac/Chest: normal peripheral pulses, regular rate, rhythm, systolic murmur Abdomen: normal bowel sounds, non-tender, soft Male Genitalia: deferred Rectal: deferred Skin: normal color, warm/dry Extremities: inflammation, swelling (Left) Neuro/Psych: no motor/sensory deficits, alert ICD10 Worksheet Patient Problems: Problems Problem Status Onset Alcohol intoxication Acute Altered mental status Acute Cellulitis Acute Dizziness Acute Dyspnea Acute Hypotension Acute Necrotizing fasciitis Acute Sepsis Acute
--- NOTE | 2017-06-10 08:40 | HOSPPROG ---
Hospitalist Progress Note Assessment/Plan: # septic shock d/t MRSA bacteremia - check NICOM today - cont levophed and vasopresin - stress dose steroids # MRSA bacteremia d/y L leg cellulitis - cont vanc, stop other abx - repeat BCX tomorrow - ID consult # L leg cellulitis - do not think this is nec fasc, but overall picture is concerning - appreciate Dr Arechiga's evaluation; has a hx of necrotizing fasciitis s/p debridement by Dr Arechiga - consider further imaging # DIC d/t sepsis - supportive care for now, follow for complications # lactic acidosis - better today # thrombocytopenia - hold heparin # CORTNEY d/t sepsis - improved overnight - has a single kidney d/t nephrectomy # etOH abuse, macrocytosis - no evidence of w/d currently, follow closely # electrolyte abnormalities - replete # morbid obesity/GIACOMO # acute encephalopathy - d/t sepsis, improved # hx PE 2006, restart heparin ppx when plts improved # ppx - SCD on R leg, no heparin 40 mins floor/bedside critical care time managing septic shock Subjective: feels better today; less L leg pain Objective: Vital Signs Temp Pulse Resp BP Pulse Ox 36.9 C 91 28 H 107/47 L 93 06/10/17 08:00 06/10/17 08:00 06/10/17 08:00 06/10/17 08:00 06/10/17 08:00 Laboratory Results 06/10/17 05:20 06/10/17 05:20 06/09/17 06/10/17 06/11/17 05:59 05:59 05:59 Intake Total 67532 550 Output Total 1700 150 Balance 8779 400 PT 23.4 SEC (12.0-15.0) H 06/10/17 05:20 INR 2.07 (0.83-1.16) H 06/10/17 05:20 - Physical Exam Constitutional: obese Cardiovascular: regular rate and rhythym, systolic murmur, No irregularly irregular, No tachycardia, No bradycardia Respiratory: no respiratory distress, no rales or rhonchi, clear to auscultation Gastrointestinal: normoactive bowel sounds, soft, non-tender abdomen, no palpable masses Musculoskeletal: other (L leg with improved erythema, pain) ICD10 Worksheet Patient Problems: Problems Problem Status Onset Sepsis Acute Necrotizing fasciitis Acute Hypotension Acute Dizziness Acute Dyspnea Acute Cellulitis Acute Altered mental status Acute Alcohol intoxication Acute
[2017-06-10] MEDS: HYDROCORTISONE 100 MG/2 ML VIAL IVP SCH ×3 (09:17→22:05)
--- NOTE | 2017-06-10 12:03 | GCON ---
[f rep st] CONSULTATION INFECTIOUS DISEASE CONSULTATION DATE OF CONSULTATION: 06/10/2017 REFERRING PHYSICIAN: Kev Krueger MD REASON FOR CONSULTATION: Left lower extremity cellulitis with MRSA bacteremia. HISTORY OF PRESENT ILLNESS: Patient is a 61-year-old male with a past medical history of left lower extremity necrotizing fasciitis in 2013 (cultures negative at that time) and prior nephrectomy for renal cell carcinoma whom I am asked to see in consultation for septic shock related to left lower e xtremity cellulitis and MRSA bacteremia. The patient was in his usual state of health until yesterd ay evening at which point in time he developed the abrupt onset of rigors. These were associated wi th some disorientation and subsequently left lower extremity pain, which is primarily over the later al calf. This had been preceded by attending a family reunion in which significant partying took pl cash. Upon presentation, patient was noted to be hypotensive, requiring vasopressors for blood press ure support. He also had evidence of thrombocytopenia, although some thrombocytopenia has been pres ent previously. Ultrasound of the left lower extremity was obtained that did not show evidence of D VT. Blood cultures x2 sets were obtained, and both are showing gram-positive cocci in clusters with PCR identification of MRSA. The patient initially was receiving broad-spectrum antimicrobial thera py with vancomycin, Zosyn, and clindamycin which has now been tailored vancomycin monotherapy. This is being dosed intermittently in accordance with his renal insufficiency. He denies any preceding injury to his leg. He does have chronic venous insufficiency changes and does scratch frequently. He does not recall any intervening episodes of cellulitis. He denies any prior history of MRSA. To day, he feels clinically improved and notes persistent left lateral leg pain as well as left thigh p ain. The area over prior skin grafting is not significantly tender. He did have a PICC line placed at the time of presentation for management of sepsis. Given the above findings, I am now asked to assist in his ongoing management. PAST MEDICAL HISTORY: Hypertension, necrotizing fasciitis of left lower extremity, morbid obesity, pulmonary embolism, renal cell carcinoma, obstructive sleep apnea. PAST SURGICAL HISTORY: Nephrectomy, left partial knee replacement, hip replacement. CURRENT MEDICATIONS: Vancomycin 1.5 g IV given on 06/09/2017 and 06/10/2017, Solu-Cortef 100 mg IV q.8 hours, morphine as needed for pain, vasopressin and norepinephrine as needed for blood pressure support, thiamin 100 mg IV daily. ALLERGIES: No known drug allergies. SOCIAL HISTORY: Patient recently attended a family reunion with significant alcohol intake; notes t ypical alcohol intake is 4-5 drinks weekly; no tobacco or drug use. Pet dogs at home. Traveled to [place] in April. FAMILY HISTORY: Noncontributory to presentation. PHYSICAL EXAMINATION: VITAL SIGNS: Temperature maximum 38.7, temperature current 37.3, heart rate 91, respiratory rate 26, blood pressure 144/51, oxygen saturation 93% on 2 L. GENERAL: Patient is morbidly obese, in no acute distress. He appears nontoxic. HEENT: There is no scleral icterus, co njunctival injection, or conjunctival petechiae. Oropharynx is dry without lesions noted. There is no tenderness over the frontal, maxillary or mastoid area. No nasal discharge. There is an abrade d area over the nasal bridge which he relates to CPAP use. NECK: Supple without palpable lymphaden opathy or thyromegaly. CHEST: Clear to auscultation bilaterally without adventitious sounds. The respiratory effort is normal. CARDIOVASCULAR: Regular rate and rhythm without murmurs, gallops, or rubs. ABDOMEN: Obese, nontender, nondistended. There is no palpable organomegaly but this is dudley ited by body habitus. MUSCULOSKELETAL: Left lower extremity shows well-healed skin graft site over medial calf region; there is tenderness and mild induration laterally with faint erythema along the calf region and mild tenderness without erythema over the anterior thigh; no palpable areas of fluc tuance or crepitus. SKIN: No stigmata of endocarditis. Skin is warm and slightly moist to palpati on. Bilateral venous insufficiency changes are present with scaling of skin. NEUROLOGIC: Patient is alert and interacts appropriately with the examiner. Cranial nerves 2-12 are grossly intact. Se nsation is grossly intact. Muscle tone and bulk are normal. LABORATORY DATA: White blood cell count 14.9, hematocrit 33.4, platelets 32, neutrophils 89%. Seru m creatinine is 1.6 (2.0 at time of presentation), bilirubin 2.9, AST 160, ALT 70, alkaline phosphat ase 65, albumin 2.5, procalcitonin 32.5. INR is 2.1, fibrinogen 341, D-dimer 5.7. Venous lactate a t time of presentation 4.5, now decreased to 2.8. Blood cultures 2 of 2 sets showing gram-positive cocci in clusters with PCR identification of MRSA. Ultrasound of the lower extremity shows no evide nce of DVT. Echocardiogram shows possibility of subtle wall motion abnormalities. No overt valvula r dysfunction, although tricuspid valve not well visualized. IMPRESSION: Septic shock due to methicillin-resistant Staphylococcus aureus bacteremia associated w ith left lower extremity skin and soft tissue infection: Suspect this is most likely due to celluli tis rather than necrotizing fasciitis based on clinical findings, although given prior history, this is of consideration. Agree with plans for CT scan of lower extremity to further evaluate soft tiss ue. Will continue vancomycin dosed according to levels and changes in renal function. Continue sup portive care for septic shock. Plan to repeat blood cultures to assess for clearing of bacteremia o katherine time. He will also need PICC line change once bacteremia has cleared, as this was placed at the time bacteremia was present. RECOMMENDATIONS: 1. Agree with continued vancomycin therapy. We will obtain random level in a.m. to assist with add itional dosing. Anticipate may become more stable in dosing as creatinine improves. 2. Agree with plans for CT scan of the lower extremity. Continue supportive intensive care for sep tic shock. 3. Follow clinical response to above measure and platelet count/DIC parameters over time. 4. Repeat blood cultures to assess for clearing of bacteremia. Thank you for this consultation. We will continue to follow the patient with you. /[id number]/MODL
[2017-06-10] MEDS ORDERED: HYDROCORTISONE 100 MG/2 ML VIAL IVP SCH (14:00)
[2017-06-10] MEDS ORDERED: D50W 25 GM/50 ML SYR IVP PRN (14:50)
[2017-06-10] MEDS ORDERED: ALBUMIN 25% 100 ML IV ONE (14:51)
[2017-06-10] MEDS ORDERED: D10W 250 ML PRN HYPOGLYCEMIA IV (15:30)
[2017-06-10] MEDS: INSULIN LISPRO 100 UNIT/ML SC SCH ×2 (17:50→22:04)
[2017-06-10 18:07] LABS: MAGNESIUM 1.4 mg/dL (1.6-2.3); POTASSIUM 3.9 mEq/L (3.5-5.2)
[2017-06-10] MEDS: oxyCODONE IR 5 MG TAB PO PRN (19:56)
[2017-06-10] MEDS: FAMOTIDINE 20 MG/NACL 50 ML IV SCH (19:57)
[2017-06-10] MEDS ORDERED: POTASSIUM CL 10 MEQ TAB PO ONE (20:25)
[2017-06-10] MEDS: LORazepam 2 MG/ML INJ IVP PRN (22:06)
[2017-06-11] MEDS: oxyCODONE IR 5 MG TAB PO PRN (00:43)
[2017-06-11] MEDS: NS 1,000 ML IV SCH ×2 (00:43→16:39)
[2017-06-11] MEDS: LORazepam 2 MG/ML INJ IVP PRN ×3 (04:30→22:58)
[2017-06-11 04:46] LABS: IONIZED CALCIUM 1.04 MMOL/L (1.12-1.30)
[2017-06-11 04:57] LABS: APTT 37.9 SEC (23.0-38.0); INR 2.54 (0.83-1.16); PROTIME(PATIENT) 27.6 SEC (12.0-15.0)
[2017-06-11 05:00] LABS: ADD DIFF? YES; ADD MORPH? NO; ATYPICAL LYMPHOCYTE FLAG 0 (0-99); FRAGMENT RBC FLAG 0 (0-99); HEMATOCRIT 32.9 % (40.0-51.0); HEMOGLOBIN 11.4 g/dL (13.7-17.5); LIPEMIA HEMOLYSIS FLAG 90 (0-99); MEAN CELL HEMOGLOBIN CONCENTR. 34.7 g/dL (32.4-36.7); MEAN CELL VOLUME 106.8 fL (81.5-99.8); MEAN PLATELET VOLUME 12.5 fL (8.7-11.7); PLATELET CLUMPS FLAG 0 (0-99); RED BLOOD CELL COUNT 3.08 10^6/uL (4.40-6.38); RED CELL DISTRIBUTION WIDTH 14.2 % (11.5-15.2)
[2017-06-11 05:02] LABS: PLATELET COUNT 32 10^3/uL (150-400)
[2017-06-11 05:07] LABS: FIBRINOGEN 386 mg/dL (214-456)
[2017-06-11 05:14] LABS: ALANINE AMINOTRANSFERASE 73 IU/L (21-72); ALBUMIN 2.6 g/dL (3.5-5.0); ALKALINE PHOSPHATASE 64 IU/L (38-126); ANION GAP 7 mEq/L (8-16); ASPARTATE AMINOTRANSFERASE 163 IU/L (17-59); BILIRUBIN,TOTAL 3.9 mg/dL (0.1-1.4); CALCIUM 7.4 mg/dL (8.5-10.4); CARBON DIOXIDE 15 mEq/l (22-31); CHLORIDE 110 mEq/L (97-110); CREATININE 1.2 mg/dL (0.7-1.3); GLOMERULAR FILTRATION RATE > 60; GLUCOSE 167 mg/dL (70-100); POTASSIUM 4.3 mEq/L (3.5-5.2); SODIUM 132 mEq/L (134-144); TOTAL PROTEIN 5.8 g/dL (6.3-8.2)
[2017-06-11 05:15] LABS: ADD SCAN? NO; LEFT SHIFT FLG 270 (0-99); PLATELET COUNT 31 10^3/uL (150-400)
[2017-06-11 05:25] LABS: BILIRUBIN-CONJUGATED 2.2 mg/dL (0.0-0.5); BILIRUBIN-UNCONJUGATED 1.7 mg/dL (0.0-1.1)
[2017-06-11 06:08] LABS: PLATELET ESTIMATE DECREASED (ADEQ)
[2017-06-11] MEDS ORDERED: PROTOCOL K PHOSPHATE 1 DOSE IV PRN (06:24)
[2017-06-11] MEDS: HYDROCORTISONE 100 MG/2 ML VIAL IVP SCH ×3 (06:33→21:22)
--- NOTE | 2017-06-11 09:21 | PDINTPN ---
Telecom Manager Progress Note Assessment/Plan: Assessment/Plan: * Sepsis/Septic shock-still on high-dose levo as well as vasopressin. -wean as tolerated. Consider addition of colloid. * Cellulitis-doubt necrotizing fasciitis. Improved -surgery following * Bacteremia * Thrombocytopenia * Confusion-resolved patient awake and alert * Morbid obesity * CRI * GIACOMO-on CPAP at night Case discussed with nursing. Overall markedly better Subjective: Sitting up in chair. Comfortable. Pain is well controlled. Denies any shortness of breath or chest pain. Objective: Vital Signs Temp Pulse Resp BP Pulse Ox 37.2 C 93 14 135/68 H 94 06/10/17 20:00 06/11/17 06:00 06/11/17 06:00 06/11/17 06:00 06/11/17 06:00 Laboratory Results 06/11/17 04:35 06/11/17 04:35 06/10/17 06/11/17 06/12/17 05:59 05:59 05:59 Intake Total 9821382 7178 Output Total 1700 1995 Balance 8779 4708 PT 27.6 SEC (12.0-15.0) H 06/11/17 04:35 INR 2.54 (0.83-1.16) H 06/11/17 04:35 Physical Exam - Physical Exam General Appearance: alert, no apparent distress, moderate distress EENT: normal ENT inspection Neck: non-tender, full range of motion, supple, normal inspection Respiratory: chest non-tender, lungs clear, normal breath sounds Cardiac/Chest: normal peripheral pulses, regular rate, rhythm Abdomen: normal bowel sounds, non-tender, soft Male Genitalia: deferred Rectal: deferred Skin: other (Improved left lower extremity) Neuro/Psych: no motor/sensory deficits, alert, normal mood/affect, oriented x 3 ICD10 Worksheet Patient Problems: Problems Problem Status Onset Alcohol intoxication Acute Altered mental status Acute Cellulitis Acute MRSA (methicillin resistant Staphylococcus aureus) Acute ~06/09/17 Dizziness Acute Dyspnea Acute Hypotension Acute Necrotizing fasciitis Acute Sepsis Acute
[2017-06-11] MEDS: INSULIN LISPRO 100 UNIT/ML SC SCH ×3 (09:43→18:21)
[2017-06-11] MEDS: THIAMINE HCL 100 MG in NS 100 ML IV SCH (09:45)
[2017-06-11] MEDS: FAMOTIDINE 20 MG/NACL 50 ML IV SCH (09:45)
--- NOTE | 2017-06-11 11:09 | PCMIDPN ---
Assessment/Plan: Assessment/Plan: 1. MRSA bacteremia/sepsis secondary to Lower extremity cellulitis: - Bilateral changes but today RLE appears worse than left which is superimposed over chronic venous stasis dermatitis -MRSA with ALEXANDRA =1. -f/u blood cx from 06/11/17 pending -on Vanco wiht intermittent dosing over past two days due to renal insufficiency. now creatinine/GFR improved. Will start scheduled dosing. has had <5 on vanco trough at 1.5gm dosing. Coordinated with pharmacy regarding his dosing. Will start 2g q12 and check trough prior to 4th. close monitoring of renal function -Discused LE elevation. -TTE wihtout vegetations. Head Ct with no acute abnormalities. -Will need picc line changed once clears bacteremia Meds vanco 1.5gm x 1 on 06/09 and 06/10 Subjective: low grade temp. less pain involving LE. nearly resolved redness on LLE but redness inovling RLE with ongiong swelling. Sob with exertion. no darrhea. Objective: Vital Signs Temp Pulse Resp BP Pulse Ox 37.2 C 93 14 135/68 H 94 06/10/17 20:00 06/11/17 06:00 06/11/17 06:00 06/11/17 06:00 06/11/17 06:00 Laboratory Results 06/11/17 04:35 06/11/17 04:35 06/10/17 06/11/17 06/12/17 05:59 05:59 05:59 Intake Total 82699 6703 Output Total 1700 1995 Balance 8779 0878 - Physical Exam General Appearance: alert, no apparent distress Respiratory: lungs clear Cardiac/Chest: regular rate, rhythm Extremities: swelling Abdomen: normal bowel sounds, non-tender, soft, distended, other (obese) Skin: erythema (RLE with patchy erythema on the anterior leg mostly. warmth appreciated. posterior leg not warm. venous stasis dermatisi also noted. LLE wiht venous stasis changes and no acute erythema seen. ) ICD10 Worksheet Patient Problems: Problems Problem Status Onset Alcohol intoxication Acute Altered mental status Acute Cellulitis Acute MRSA (methicillin resistant Staphylococcus aureus) Acute ~06/09/17 Dizziness Acute Dyspnea Acute Hypotension Acute Necrotizing fasciitis Acute Sepsis Acute
[2017-06-11] MEDS ORDERED: CALCIUM GLUCONATE 50 ML IV ONE (11:14)
[2017-06-11] MEDS: VANCOMYCIN 2 GM in D5W 500 ML IV SCH ×2 (11:30→21:23)
[2017-06-11] MEDS ORDERED: K PHOS 10 MMOL in D5W 250 ML IV ONE (12:00)
--- NOTE | 2017-06-11 12:52 | SOAPPROG ---
SOAP Progress Note Assessment/Plan: Assessment: 61 yo admitted with cellulitus and sepsis. Leg much improved today No imaging unless change in clinical status Will sign off. Don't hesitate to call if you have questions or concerns S: feeling better Increased work of breathing Leg non tender Minor erythema Plan: 06/11/17 12:51 Objective: Vital Signs Temp Pulse Resp BP Pulse Ox 37.2 C 83 13 170/57 H 97 06/11/17 07:00 06/11/17 12:00 06/11/17 12:00 06/11/17 12:00 06/11/17 12:00 Laboratory Results 06/11/17 04:35 06/11/17 04:35 06/10/17 06/11/17 06/12/17 05:59 05:59 05:59 Intake Total 99432 3109 Output Total 1700 1994 Balance 8779 6478 PT 27.6 SEC (12.0-15.0) H 06/11/17 04:35 INR 2.54 (0.83-1.16) H 06/11/17 04:35 ICD10 Worksheet Patient Problems: Problems Problem Status Onset Alcohol intoxication Acute Altered mental status Acute Cellulitis Acute MRSA (methicillin resistant Staphylococcus aureus) Acute ~06/09/17 Dizziness Acute Dyspnea Acute Hypotension Acute Necrotizing fasciitis Acute Sepsis Acute
[2017-06-11] MEDS ORDERED: FUROSEMIDE 40 MG/4 ML VIAL IVP ONE (13:40)
[2017-06-11] MEDS ORDERED: chlordiazePOXIDE 25 MG CAP PO PRN (13:46)
[2017-06-11] MEDS: PHENAZOPYRIDINE HCL 200 MG TAB PO SCH (14:43)
[2017-06-11] MEDS: PHENAZOPYRIDINE HCL 100 MG TAB PO ONE ×2 (14:44→14:46)
[2017-06-11] MEDS: amLODIPine BESYLATE 5 MG TAB PO SCH (14:50)
--- NOTE | 2017-06-11 16:04 | HOSPPROG ---
Hospitalist Progress Note Assessment/Plan: * MRSA bacteremia with septic shock -pressors off -IV Vanco -wean steroids * Leg cellulitis - no evidence for nec fasc * Etoh use - possible withdrawal -benzos prn * Increased LFT - ? cirrhosis -check abdominal US * Edema - start IV lasix * DIC - supportive care * ARF - resolved, single kidney s/p nephrectomy * Morbid Obesity BMI 47 * GIACOMO * Metabolic encephalopathy - delirium with hallucinations * h/o PE -hold off on DVT prophylaxis due to low platelets and coagulopathy Subjective: lots of visual hallucinations, drinks multiple large martinis per day Objective: Vital Signs Temp Pulse Resp BP Pulse Ox 37.0 C 81 12 158/67 H 97 06/11/17 15:00 06/11/17 15:00 06/11/17 15:00 06/11/17 15:00 06/11/17 15:00 Laboratory Results 06/11/17 04:35 06/11/17 04:35 06/10/17 06/11/17 06/12/17 05:59 05:59 05:59 Intake Total 32807 3445 Output Total 1700 1994 Balance 8779 4708 PT 27.6 SEC (12.0-15.0) H 06/11/17 04:35 INR 2.54 (0.83-1.16) H 06/11/17 04:35 CXR viewed, my personal interpretation is - negative Leg US - no DVT - Physical Exam Constitutional: no apparent distress, appears nourished, not in pain Cardiovascular: regular rate and rhythym, no murmur, rub, or gallop, edema (3+) Respiratory: no respiratory distress, no rales or rhonchi, clear to auscultation Gastrointestinal: normoactive bowel sounds, soft, non-tender abdomen, no palpable masses Skin: warm, No mottled, No erythema (much improved), No fluctuance Neurologic: No AAOx3 Psychiatric: encephalopathic, anxious, agitated, poor insight, poor judgement, poor memory, No interacting appropriately ICD10 Worksheet Patient Problems: Problems Problem Status Onset Alcohol intoxication Acute Altered mental status Acute Cellulitis Acute MRSA (methicillin resistant Staphylococcus aureus) Acute ~06/09/17 Dizziness Acute Dyspnea Acute Hypotension Acute Necrotizing fasciitis Acute Sepsis Acute
[2017-06-11] MEDS ORDERED: IPRATROPIUM/ALBUTEROL 3 ML DEYVIAL ONE (16:51)
[2017-06-11] MEDS: IPRATROPIUM/ALBUTEROL 3 ML DEYVIAL IH PRN (18:22)
[2017-06-11] MEDS: ALTEPLASE 2 MG VIAL IVP PRN (18:22)
[2017-06-11 19:09] LABS: POTASSIUM 4.1 mEq/L (3.5-5.2)
[2017-06-11] MEDS: DEXMEDETOMIDINE HCL 400 MCG in NS 100 ML IV SCH ×2 (21:22→23:27)
[2017-06-11] MEDS: OLANZapine DISINTEGR 5 MG TAB PO PRN (22:58)
[2017-06-12] MEDS: DEXMEDETOMIDINE HCL 400 MCG in NS 100 ML IV SCH (01:23)
[2017-06-12] MEDS: DEXMEDETOMIDINE HCL 1,000 MCG in NS 250 ML IV SCH ×3 (02:55→20:55)
[2017-06-12] MEDS: HYDROCORTISONE 100 MG/2 ML VIAL IVP SCH (05:44)
[2017-06-12] MEDS: LORazepam 2 MG/ML INJ IVP PRN ×2 (05:44→19:50)
[2017-06-12 06:10] LABS: ADD MORPH? NO; ADD SCAN? YES; ATYPICAL LYMPHOCYTE FLAG 0 (0-99); FRAGMENT RBC FLAG 0 (0-99); HEMATOCRIT 33.7 % (40.0-51.0); HEMOGLOBIN 11.8 g/dL (13.7-17.5); LIPEMIA HEMOLYSIS FLAG 90 (0-99); MEAN CELL HEMOGLOBIN 37.7 pg (27.9-34.1); MEAN CELL VOLUME 107.7 fL (81.5-99.8); MEAN PLATELET VOLUME 11.9 fL (8.7-11.7); PLATELET CLUMPS FLAG 0 (0-99); RED BLOOD CELL COUNT 3.13 10^6/uL (4.40-6.38); RED CELL DISTRIBUTION WIDTH 14.2 % (11.5-15.2)
[2017-06-12 06:22] LABS: LEFT SHIFT FLG 130 (0-99); PLATELET COUNT 35 10^3/uL (150-400)
[2017-06-12 06:31] LABS: INR 1.94 (0.83-1.16); PROTIME(PATIENT) 22.3 SEC (12.0-15.0)
[2017-06-12 06:32] LABS: APTT 33.5 SEC (23.0-38.0); FIBRINOGEN 353 mg/dL (214-456)
[2017-06-12 06:34] LABS: ALANINE AMINOTRANSFERASE 77 IU/L (21-72); ALBUMIN 2.6 g/dL (3.5-5.0); ALKALINE PHOSPHATASE 83 IU/L (38-126); ANION GAP 9 mEq/L (8-16); ASPARTATE AMINOTRANSFERASE 127 IU/L (17-59); CALCIUM 7.9 mg/dL (8.5-10.4); CARBON DIOXIDE 17 mEq/l (22-31); CHLORIDE 109 mEq/L (97-110); CREATININE 1.3 mg/dL (0.7-1.3); GLOMERULAR FILTRATION RATE 56; GLUCOSE 235 mg/dL (70-100); IONIZED CALCIUM 1.14 MMOL/L (1.12-1.30); MAGNESIUM 2.1 mg/dL (1.6-2.3); POTASSIUM 4.4 mEq/L (3.5-5.2); SODIUM 135 mEq/L (134-144); TOTAL PROTEIN 5.8 g/dL (6.3-8.2)
[2017-06-12 06:39] LABS: VANCOMYCIN RANDOM LEVEL 21.5 mcg/mL (0.0-40.0)
[2017-06-12 06:43] LABS: ADD DIFF? YES; SCAN POSITIVE
[2017-06-12 06:52] LABS: MACROCYTES 2+; PLATELET ESTIMATE DECREASED (ADEQ)
[2017-06-12 06:53] LABS: PLATELET COUNT 38 10^3/uL (150-400)
[2017-06-12 08:13] LABS: BILIRUBIN-CONJUGATED 1.7 mg/dL (0.0-0.5); BILIRUBIN-UNCONJUGATED 1.3 mg/dL (0.0-1.1)
--- NOTE | 2017-06-12 08:33 | PCMIDPN ---
Assessment/Plan: # Sepsis secondary to MRSA bacteremia - unclear portal - apparently LLE with some redness on admit, now almost completely resolved, AF since 06/09. TTE was negative for veg. Leukocytosis improving, thrombocytopenia likely related to sepsis + cirrhosis -- continue vancomycin, unclear how to interpret random levels -- repeat trough now -- may need additional imaging to evaluate source, impossible to localize sx today because of confusion/agitation --blood cx 06/11 positive, repeat blood cx 06/13 # Encephalopathy due to withdrawal # Cirrhosis likely related EtOH/fatty liver. HBV, HCV negative. Cirrhosis certainly pre-disposed to bacteremia microbiology 06/09 blood cx 2/2 MRSA 06/11 blood cx 1/2 GPC cluster meds vancomycin IV 2gm IV q12 #3 Subjective: completely encephalopathic and agitated on Precedex palpation LLE did not elicit pain response Objective: Vital Signs Temp Pulse Resp BP Pulse Ox 35.9 C L 64 13 121/68 H 99 06/12/17 06:00 06/12/17 06:00 06/12/17 06:00 06/12/17 06:00 06/12/17 06:00 Laboratory Results 06/12/17 05:50 06/12/17 05:50 06/11/17 06/12/17 06/13/17 05:59 05:59 05:59 Intake Total 6713 9370 Output Total 1994 3634 [facility] [id number] - Physical Exam General Appearance: obtunded EENT: pale conjunctiva, dry mucous membranes, poor dentition Respiratory: coarse breath sounds, No accessory muscle use Neck: supple Cardiac/Chest: regular rate, rhythm Extremities: pedal edema, other (LLE with obvious prior scar from surgery, faint pinkness medial ankle) Abdomen: normal bowel sounds, non-tender, soft Male Genitalia: pardo Skin: No rash Neuro/Psych: confused, other (seems to be moving all 4 ext) - Line/s RUE PICC Lines: No drainage, No erythema ICD10 Worksheet Patient Problems: Problems Problem Status Onset Alcohol intoxication Acute Altered mental status Acute Cellulitis Acute MRSA (methicillin resistant Staphylococcus aureus) Acute ~06/09/17 Dizziness Acute Dyspnea Acute Hypotension Acute Necrotizing fasciitis Acute Sepsis Acute
--- NOTE | 2017-06-12 09:25 | PDINTPN ---
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 Improved -surgery following * Bacteremia * Thrombocytopenia * Acute alcohol withdrawals-markedly worse. Patient is very agitated and yelling out. -continue aggressive CIWA protocol * Morbid obesity * CRI * GIACOMO-on CPAP at night Case discussed with nursing. Subjective: Currently somnolent. However periods of agitation and aggression. Objective: Vital Signs Temp Pulse Resp BP Pulse Ox 36.6 C 62 14 127/71 H 98 06/12/17 08:00 06/12/17 08:00 06/12/17 08:00 06/12/17 08:00 06/12/17 08:00 Laboratory Results 06/12/17 05:50 06/12/17 05:50 06/11/17 06/12/17 06/13/17 05:59 05:59 05:59 Intake Total 6703 5718 Output Total 1994 3350 Balance 4708 2368 PT 22.3 SEC (12.0-15.0) H 06/12/17 05:50 INR 1.94 (0.83-1.16) H 06/12/17 05:50 Laboratory Results 06/12/17 05:50 06/12/17 05:50 06/11/17 06/11/17 06/11/17 04:35 04:35 04:35 PT 27.6 SEC H SEC (12.0 - 15.0) INR 2.54 H (0.83 - 1.16) APTT 37.9 SEC SEC (23.0 - 38.0) Fibrinogen 386 mg/dL mg/dL (214 - 456) D-Dimer 6.32 ug/mLFEU H ug/mLFEU (0.00 - 0.50) Calcium 7.4 mg/dL L mg/dL (8.5 - 10.4) Ionized Calcium 1.04 MMOL/L L MMOL/L (1.12 - 1.30) Phosphorus 1.8 mg/dL L D mg/dL (2.5 - 4.5) Magnesium 2.0 mg/dL mg/dL (1.6 - 2.3) Total Bilirubin 3.9 mg/dL H mg/dL (0.1 - 1.4) Conjugated Bilirubin 2.2 mg/dL H mg/dL (0.0 - 0.5) Unconjugated Bilirubin 1.7 mg/dL H mg/dL (0.0 - 1.1) AST 163 IU/L H IU/L (17 - 59) ALT 73 IU/L H IU/L (21 - 72) Alkaline Phosphatase 64 IU/L IU/L (38 - 126) Total Protein 5.8 g/dL L g/dL (6.3 - 8.2) Albumin 2.6 g/dL L g/dL (3.5 - 5.0) 06/09/17 08:03 Blood Culture - Preliminary Blood MRSA 06/09/17 07:30 Blood Culture - Preliminary Blood Blood Panel (PCR) - Final MRSA MRSA Physical Exam - Physical Exam General Appearance: other (Agitated), No alert EENT: PERRL/EOMI, normal ENT inspection Neck: non-tender, full range of motion, supple, normal inspection Respiratory: chest non-tender, lungs clear, normal breath sounds Cardiac/Chest: normal peripheral pulses, regular rate, rhythm Abdomen: normal bowel sounds, non-tender, soft Male Genitalia: deferred Rectal: deferred Skin: other (Improve left lower extremity) Neuro/Psych: cognition abnormalities, No alert, No oriented x 3 ICD10 Worksheet Patient Problems: Problems Problem Status Onset Alcohol intoxication Acute Altered mental status Acute Cellulitis Acute MRSA (methicillin resistant Staphylococcus aureus) Acute ~06/09/17 Dizziness Acute Dyspnea Acute Hypotension Acute Necrotizing fasciitis Acute Sepsis Acute
[2017-06-12] MEDS: amLODIPine BESYLATE 5 MG TAB PO SCH (10:42)
[2017-06-12] MEDS: PHENAZOPYRIDINE HCL 200 MG TAB PO SCH (10:43)
[2017-06-12] MEDS: THIAMINE HCL 100 MG in NS 100 ML IV SCH (10:43)
[2017-06-12] MEDS: FUROSEMIDE 40 MG/4 ML VIAL IVP SCH ×2 (10:56→15:17)
[2017-06-12] MEDS: INSULIN LISPRO 100 UNIT/ML SC SCH ×3 (10:59→17:00)
[2017-06-12] MEDS: SPIRONOLACTONE 25 MG TAB PO SCH ×2 (13:35→20:58)
[2017-06-12] MEDS: VANCOMYCIN HCL/NORMAL SALINE 250 ML IV SCH ×2 (15:24→20:55)
[2017-06-12] MEDS: VANCOMYCIN 2 GM in D5W 500 ML IV SCH (15:25)
--- NOTE | 2017-06-12 15:55 | HOSPPROG ---
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 -complete Etoh cessation recommended * Edema - start IV lasix + Aldactone * DIC - supportive care * ARF - resolved, single kidney s/p nephrectomy * Morbid Obesity BMI 47 * GIACOMO - CPAP * Metabolic encephalopathy - delirium with hallucinations * h/o PE -hold off on DVT prophylaxis due to low platelets and coagulopathy Subjective: Severe increased agitation last night with ongoing hallucinations, precedex started Objective: Vital Signs Temp Pulse Resp BP Pulse Ox 36.9 C 126 H 16 126/65 H 98 06/12/17 11:49 06/12/17 11:49 06/12/17 11:49 06/12/17 11:49 06/12/17 11:49 Microbiology 06/11/17 06:35 Blood Panel (PCR) - Final Blood MRSA Laboratory Results 06/12/17 05:50 06/12/17 05:50 06/11/17 06/12/17 06/13/17 05:59 05:59 05:59 Intake Total 6703 5718 Output Total 1994 5590 1050 Balance 4708 2368 -1050 PT 22.3 SEC (12.0-15.0) H 06/12/17 05:50 INR 1.94 (0.83-1.16) H 06/12/17 05:50 Abd US - c/w Cirrhosis of liver case d/w Dr. Harmon ICU rounds - back to ICU status, precedex gtt - Physical Exam Constitutional: appears nourished, not in pain, obese, uncomfortable Cardiovascular: regular rate and rhythym, no murmur, rub, or gallop, edema (4+) Respiratory: no respiratory distress, no rales or rhonchi, clear to auscultation Gastrointestinal: normoactive bowel sounds, soft, non-tender abdomen, no palpable masses Skin: no rashes or abrasions, no fluctuance, no induration Neurologic: No AAOx3 Psychiatric: encephalopathic, agitated, poor insight, poor judgement, poor memory, No interacting appropriately ICD10 Worksheet Patient Problems: Problems Problem Status Onset Alcohol intoxication Acute Altered mental status Acute Cellulitis Acute MRSA (methicillin resistant Staphylococcus aureus) Acute ~06/09/17 Dizziness Acute Dyspnea Acute Hypotension Acute Necrotizing fasciitis Acute Sepsis Acute
[2017-06-12 18:08] LABS: POTASSIUM 3.3 mEq/L (3.5-5.2)
[2017-06-12] MEDS: POTASSIUM Cl (KCl) 50 ML IV SCH ×3 (20:55→22:19)
[2017-06-13] MEDS: DEXMEDETOMIDINE HCL 1,000 MCG in NS 250 ML IV SCH ×4 (01:18→22:25)
[2017-06-13] MEDS: VANCOMYCIN HCL/NORMAL SALINE 250 ML IV SCH ×2 (03:17→11:32)
[2017-06-13] MEDS: LORazepam 2 MG/ML INJ IVP PRN ×2 (04:19→17:35)
[2017-06-13 04:58] LABS: IONIZED CALCIUM 1.11 MMOL/L (1.12-1.30)
[2017-06-13 05:01] LABS: % IMMATURE GRANULYOCYTES 0.6 % (0.0-1.1); ABSOLUTE IMMATURE GRANULOCYTES 0.05 10^3/uL (0.00-0.10); ADD DIFF? NO; ADD MORPH? NO; ADD SCAN? NO; ATYPICAL LYMPHOCYTE FLAG 0 (0-99); FRAGMENT RBC FLAG 0 (0-99); LEFT SHIFT FLG 10 (0-99); LIPEMIA HEMOLYSIS FLAG 90 (0-99); MEAN CELL HEMOGLOBIN 37.4 pg (27.9-34.1); MEAN CELL HEMOGLOBIN CONCENTR. 34.3 g/dL (32.4-36.7); MEAN PLATELET VOLUME 11.8 fL (8.7-11.7); PLATELET CLUMPS FLAG 20 (0-99); RED BLOOD CELL COUNT 3.21 10^6/uL (4.40-6.38); RED CELL DISTRIBUTION WIDTH 14.2 % (11.5-15.2)
[2017-06-13 05:04] LABS: PLATELET COUNT 32 10^3/uL (150-400)
[2017-06-13 05:05] LABS: PLATELET COUNT 32 10^3/uL (150-400)
[2017-06-13 05:13] LABS: ALANINE AMINOTRANSFERASE 62 IU/L (21-72); ALBUMIN 2.2 g/dL (3.5-5.0); ALKALINE PHOSPHATASE 76 IU/L (38-126); ANION GAP 10 mEq/L (8-16); ASPARTATE AMINOTRANSFERASE 80 IU/L (17-59); BILIRUBIN,TOTAL 2.6 mg/dL (0.1-1.4); CALCIUM 7.6 mg/dL (8.5-10.4); CARBON DIOXIDE 15 mEq/l (22-31); CHLORIDE 115 mEq/L (97-110); CREATININE 1.4 mg/dL (0.7-1.3); GLOMERULAR FILTRATION RATE 52; GLUCOSE 156 mg/dL (70-100); INR 1.91 (0.83-1.16); MAGNESIUM 1.9 mg/dL (1.6-2.3); POTASSIUM 3.4 mEq/L (3.5-5.2); SODIUM 140 mEq/L (134-144); TOTAL PROTEIN 5.2 g/dL (6.3-8.2)
[2017-06-13 05:15] LABS: APTT 32.1 SEC (23.0-38.0); FIBRINOGEN 321 mg/dL (214-456)
[2017-06-13 05:48] LABS: PLATELET ESTIMATE DECREASED (ADEQ)
[2017-06-13 05:53] LABS: BILIRUBIN-CONJUGATED 1.4 mg/dL (0.0-0.5); BILIRUBIN-UNCONJUGATED 1.2 mg/dL (0.0-1.1)
[2017-06-13] MEDS ORDERED: CALCIUM GLUCONATE 50 ML IV ONE (06:24)
[2017-06-13] MEDS: THIAMINE HCL 100 MG in NS 100 ML IV SCH (07:31)
[2017-06-13] MEDS: amLODIPine BESYLATE 5 MG TAB PO SCH (07:32)
[2017-06-13] MEDS: SPIRONOLACTONE 25 MG TAB PO SCH (07:33)
[2017-06-13] MEDS: POTASSIUM Cl (KCl) 50 ML IV SCH ×4 (09:00→10:00)
[2017-06-13] MEDS: INSULIN LISPRO 100 UNIT/ML SC SCH ×3 (09:01→19:22)
[2017-06-13] MEDS: FUROSEMIDE 40 MG/4 ML VIAL IVP SCH ×2 (09:02→14:32)
--- NOTE | 2017-06-13 09:24 | PDINTPN ---
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 Improved -surgery following * Bacteremia * Cirrhosis * Thrombocytopenia * Acute alcohol withdrawals-a little better today with less agitation. -continue aggressive CIWA protocol including Precedex * Morbid obesity * CRI * GIACOMO-on CPAP at night Case discussed with nursing. Subjective: Awake, but not alert. Agitation improved. Objective: Vital Signs Temp Pulse Resp BP Pulse Ox 37.4 C 60 114 H 143/84 H 99 06/13/17 00:00 06/13/17 06:00 06/13/17 06:00 06/13/17 06:00 06/13/17 06:00 Microbiology 06/11/17 06:35 Blood Panel (PCR) - Final Blood MRSA Laboratory Results 06/13/17 04:45 06/13/17 04:45 06/12/17 06/13/17 06/14/17 05:59 05:59 05:59 Intake Total 5718 2270 Output Total 3350 3690 Balance 2368 -1420 PT 22.0 SEC (12.0-15.0) H 06/13/17 04:45 INR 1.91 (0.83-1.16) H 06/13/17 04:45 Physical Exam - Physical Exam General Appearance: other (Awake), No alert EENT: PERRL/EOMI, normal ENT inspection Neck: non-tender, full range of motion, supple, normal inspection Respiratory: chest non-tender, lungs clear, normal breath sounds Cardiac/Chest: normal peripheral pulses, regular rate, rhythm Abdomen: normal bowel sounds, non-tender, soft Male Genitalia: deferred Rectal: deferred Skin: other (Improved cellulitis) Neuro/Psych: No alert ICD10 Worksheet Patient Problems: Problems Problem Status Onset Alcohol intoxication Acute Altered mental status Acute Cellulitis Acute MRSA (methicillin resistant Staphylococcus aureus) Acute ~06/09/17 Dizziness Acute Dyspnea Acute Hypotension Acute Necrotizing fasciitis Acute Sepsis Acute
--- NOTE | 2017-06-13 16:54 | HOSPPROG ---
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 Objective: Vital Signs Temp Pulse Resp BP Pulse Ox 36.6 C 60 12 107/51 L 95 06/13/17 16:00 06/13/17 16:00 06/13/17 16:00 06/13/17 16:00 06/13/17 16:00 Microbiology 06/11/17 06:35 Blood Panel (PCR) - Final Blood MRSA Laboratory Results 06/13/17 04:45 06/13/17 04:45 06/12/17 06/13/17 06/14/17 05:59 05:59 05:59 Intake Total 5718 2270 Output Total 3350 3690 2250 Balance 2368 -1420 -2250 PT 22.0 SEC (12.0-15.0) H 06/13/17 04:45 INR 1.91 (0.83-1.16) H 06/13/17 04:45 - Physical Exam Constitutional: no apparent distress, appears nourished, not in pain Cardiovascular: regular rate and rhythym, no murmur, rub, or gallop, edema (3+) Respiratory: no respiratory distress, no rales or rhonchi, clear to auscultation Gastrointestinal: normoactive bowel sounds, soft, non-tender abdomen, no palpable masses Skin: no rashes or abrasions, no fluctuance, no induration, other (minimal residual erythema, scarring due to previous nec fasc) Neurologic: No AAOx3, No weakness, No facial droop Psychiatric: encephalopathic, poor insight, poor judgement, poor memory, No thought process linear, No agitated ICD10 Worksheet Patient Problems: Problems Problem Status Onset Alcohol intoxication Acute Altered mental status Acute Cellulitis Acute MRSA (methicillin resistant Staphylococcus aureus) Acute ~06/09/17 Dizziness Acute Dyspnea Acute Hypotension Acute Necrotizing fasciitis Acute Sepsis Acute
--- NOTE | 2017-06-13 18:41 | PCMIDPN ---
Assessment/Plan: Assessment: MRSA septic shock and bacteremia secondary to probable right lower extremity cellulitis. Patient continues to improve over the last 48 hours on vancomycin monotherapy. Repeat blood cultures today are no growth to date. Plan to continue vancomycin monotherapy. Leukocytosis has resolved. Patient remains confused. Plan: 1. Continue vancomycin monotherapy. 2. Decrease vancomycin dose secondary to increase trough level 21.2. Creatinine also increased to 1.4. 3. Follow repeat blood cultures. 06/13/17 20:05 Subjective: Patient is alert although confused laying in his hospital bed. is in the room. No repeat fevers. Although he did have an episode of hypothermia. Objective: Vancomycin #4 Vital Signs Temp Pulse Resp BP Pulse Ox 36.6 C 60 12 107/51 L 95 06/13/17 16:00 06/13/17 16:00 06/13/17 16:00 06/13/17 16:00 06/13/17 16:00 Microbiology 06/11/17 06:35 Blood Panel (PCR) - Final Blood MRSA Laboratory Results 06/13/17 04:45 06/13/17 04:45 06/12/17 06/13/17 06/14/17 05:59 05:59 05:59 Intake Total 5718 2270 Output Total 3350 3690 2250 Balance 2368 -1420 -2250 - Physical Exam General Appearance: WD/WN, alert, obese, toxic (Moderately) Respiratory: lungs clear, normal breath sounds, No respiratory distress Cardiac/Chest: regular rate, rhythm, No tachycardia Extremities: inflammation, erythema, No non-tender, No normal inspection, No necrosis Skin: normal color, warm/dry, No rash Neuro/Psych: alert ICD10 Worksheet Patient Problems: Problems Problem Status Onset Alcohol intoxication Acute Altered mental status Acute Cellulitis Acute MRSA (methicillin resistant Staphylococcus aureus) Acute ~06/09/17 Dizziness Acute Dyspnea Acute Hypotension Acute Necrotizing fasciitis Acute Sepsis Acute
[2017-06-13] MEDS: ALTEPLASE 2 MG VIAL IVP PRN (20:20)
[2017-06-13 21:11] LABS: POTASSIUM 3.4 mEq/L (3.5-5.2)
[2017-06-13] MEDS: VANCOMYCIN 1.25 GM in D5W 250 ML IV SCH (21:26)
[2017-06-14] MEDS: SPIRONOLACTONE 25 MG TAB PO SCH ×2 (01:42→12:03)
[2017-06-14] MEDS: POTASSIUM Cl (KCl) 50 ML IV SCH ×5 (01:45→21:57)
[2017-06-14] MEDS: DEXMEDETOMIDINE HCL 1,000 MCG in NS 250 ML IV SCH ×4 (03:30→20:42)
[2017-06-14 05:06] LABS: IONIZED CALCIUM 1.28 MMOL/L (1.12-1.30)
[2017-06-14 05:11] LABS: ABSOLUTE IMMATURE GRANULOCYTES 0.13 10^3/uL (0.00-0.10); ADD DIFF? NO; ADD MORPH? NO; ADD SCAN? NO; ATYPICAL LYMPHOCYTE FLAG 0 (0-99); FRAGMENT RBC FLAG 0 (0-99); HEMATOCRIT 37.4 % (40.0-51.0); HEMOGLOBIN 13.1 g/dL (13.7-17.5); LEFT SHIFT FLG 10 (0-99); LIPEMIA HEMOLYSIS FLAG 90 (0-99); MEAN CELL HEMOGLOBIN 37.3 pg (27.9-34.1); MEAN CELL VOLUME 106.6 fL (81.5-99.8); MEAN PLATELET VOLUME 11.6 fL (8.7-11.7); PLATELET CLUMPS FLAG 10 (0-99); RED BLOOD CELL COUNT 3.51 10^6/uL (4.40-6.38); RED CELL DISTRIBUTION WIDTH 14.2 % (11.5-15.2)
[2017-06-14 05:24] LABS: PLATELET COUNT 32 10^3/uL (150-400)
[2017-06-14 05:25] LABS: ANION GAP 10 mEq/L (8-16); CARBON DIOXIDE 19 mEq/l (22-31); CHLORIDE 114 mEq/L (97-110); CREATININE 1.5 mg/dL (0.7-1.3); GLUCOSE 153 mg/dL (70-100); POTASSIUM 3.8 mEq/L (3.5-5.2); SODIUM 143 mEq/L (134-144)
[2017-06-14 05:26] LABS: ALANINE AMINOTRANSFERASE 68 IU/L (21-72); ALBUMIN 2.5 g/dL (3.5-5.0); ALKALINE PHOSPHATASE 98 IU/L (38-126); ASPARTATE AMINOTRANSFERASE 93 IU/L (17-59); BILIRUBIN,TOTAL 3.5 mg/dL (0.1-1.4); BILIRUBIN-CONJUGATED 1.7 mg/dL (0.0-0.5); BILIRUBIN-UNCONJUGATED 1.8 mg/dL (0.0-1.1); CALCIUM 8.9 mg/dL (8.5-10.4); GLOMERULAR FILTRATION RATE 48
[2017-06-14 06:17] LABS: PLATELET ESTIMATE DECREASED (ADEQ)
[2017-06-14] MEDS: VANCOMYCIN HCL/NORMAL SALINE 250 ML IV SCH (06:41)
--- NOTE | 2017-06-14 08:23 | PDINTPN ---
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 Improved -surgery following * Bacteremia * Cirrhosis * Thrombocytopenia * Acute alcohol withdrawals-no significant change overall -continue Precedex and CIWA protocol * Morbid obesity * CRI * GIACOMO-on CPAP at night Case discussed with nursing. Overall slow to improve Subjective: Resting comfortably. Less agitated today. Objective: Vital Signs Temp Pulse Resp BP Pulse Ox 36.6 C 57 L 57 H 138/77 H 100 06/14/17 06:00 06/14/17 06:00 06/14/17 06:00 06/14/17 06:00 06/14/17 06:00 Microbiology 06/11/17 06:35 Blood Panel (PCR) - Final Blood MRSA Laboratory Results 06/14/17 05:00 06/14/17 05:00 06/13/17 06/14/17 06/15/17 05:59 05:59 05:59 Intake Total 2270 998 Output Total 3690 6300 Balance -1420 -5302 PT 22.0 SEC (12.0-15.0) H 06/13/17 04:45 INR 1.91 (0.83-1.16) H 06/13/17 04:45 Laboratory Results 06/14/17 05:00 06/14/17 05:00 06/14/17 06/13/17 06/13/17 05:00 04:45 04:45 PT 22.0 SEC H SEC (12.0 - 15.0) INR 1.91 H (0.83 - 1.16) APTT 32.1 SEC SEC (23.0 - 38.0) Fibrinogen 321 mg/dL mg/dL (214 - 456) D-Dimer 6.18 ug/mLFEU H ug/mLFEU (0.00 - 0.50) Calcium 8.9 mg/dL D mg/dL 7.6 mg/dL L mg/dL (8.5 - 10.4) (8.5 - 10.4) Ionized Calcium Phosphorus 4.8 mg/dL H D mg/dL 3.3 mg/dL mg/dL (2.5 - 4.5) (2.5 - 4.5) Magnesium 1.9 mg/dL mg/dL (1.6 - 2.3) Total Bilirubin 3.5 mg/dL H mg/dL 2.6 mg/dL H mg/dL (0.1 - 1.4) (0.1 - 1.4) Conjugated Bilirubin 1.7 mg/dL H mg/dL 1.4 mg/dL H mg/dL (0.0 - 0.5) (0.0 - 0.5) Unconjugated Bilirubin 1.8 mg/dL H mg/dL 1.2 mg/dL H mg/dL (0.0 - 1.1) (0.0 - 1.1) AST 93 IU/L H IU/L 80 IU/L H IU/L (17 - 59) (17 - 59) ALT 68 IU/L IU/L 62 IU/L IU/L (21 - 72) (21 - 72) Alkaline Phosphatase 98 IU/L IU/L 76 IU/L IU/L (38 - 126) (38 - 126) Total Protein 6.0 g/dL L g/dL 5.2 g/dL L g/dL (6.3 - 8.2) (6.3 - 8.2) Albumin 2.5 g/dL L g/dL 2.2 g/dL L g/dL (3.5 - 5.0) (3.5 - 5.0) 06/13/17 04:45 PT INR APTT Fibrinogen D-Dimer Calcium Ionized Calcium 1.11 MMOL/L L MMOL/L (1.12 - 1.30) Phosphorus Magnesium Total Bilirubin Conjugated Bilirubin Unconjugated Bilirubin AST ALT Alkaline Phosphatase Total Protein Albumin 06/11/17 06:50 Blood Culture - Preliminary Blood Gram Positive Cocci Clusters 06/11/17 06:35 Blood Culture - Preliminary Blood Blood Panel (PCR) - Final MRSA MRSA 06/11/17 06:35 Blood Culture - Preliminary Blood Blood Panel (PCR) - Final Gram Positive Cocci Clusters MRSA Chest [id number] by myself. Mild pulmonary edema. Possible retrocardiac infiltrate Physical Exam - Physical Exam General Appearance: other (Awake), No alert EENT: PERRL/EOMI, normal ENT inspection Neck: non-tender, full range of motion, supple, normal inspection Respiratory: rhonchi (Few), No respiratory distress, No stridor, No wheezing Cardiac/Chest: normal peripheral pulses, regular rate, rhythm, systolic murmur Abdomen: normal bowel sounds, non-tender, soft Male Genitalia: deferred Rectal: deferred Neuro/Psych: No alert ICD10 Worksheet Patient Problems: Problems Problem Status Onset Alcohol intoxication Acute Altered mental status Acute Cellulitis Acute MRSA (methicillin resistant Staphylococcus aureus) Acute ~06/09/17 Dizziness Acute Dyspnea Acute Hypotension Acute Necrotizing fasciitis Acute Sepsis Acute
[2017-06-14] MEDS ORDERED: POTASSIUM Cl (KCl) 50 ML IV ONE (08:27)
[2017-06-14] MEDS ORDERED: FUROSEMIDE 20 MG TAB PO SCH ×2 (09:00)
[2017-06-14] MEDS: THIAMINE HCL 100 MG in NS 100 ML IV SCH (09:08)
--- NOTE | 2017-06-14 09:20 | PCMIDPN ---
Assessment/Plan: Assessment/Plan: * Sepsis due to MRSA bacteremia associated with left lower extremity cellulitis : 1 of 2 sets of blood cultures from 06/13/2017 remains positive with GPCs and clusters. Will repeat blood cultures to assess for clearing. Continue vancomycin with dosing according to levels and renal function. Will repeat trough this a.m. given increase trough yesterday with persistently elevated creatinine. Cellulitis of left lower extremity has resolved. If cannot clear bacteremia, may need to consider proceeding with OBEY and PICC line change given initial PICC line inserted at time of bacteremia. 06/14/17 09:16 06/14/17 09:21 Subjective: Patient confused. Up in chair this a.m.. Objective: Vital Signs Temp Pulse Resp BP Pulse Ox 36.6 C 57 L 57 H 138/77 H 100 06/14/17 06:00 06/14/17 06:00 06/14/17 06:00 06/14/17 06:00 06/14/17 06:00 Microbiology 06/11/17 06:35 Blood Panel (PCR) - Final Blood MRSA Laboratory Results 06/14/17 05:00 06/14/17 05:00 06/13/17 06/14/17 06/15/17 05:59 05:59 05:59 Intake Total 2270 998 Output Total 3690 6300 Balance -5198 -7943 Vancomycin # 5 Blood cultures 06/13/2017 1/2 sets GPCs in clusters Laboratory Tests 06/13/17 06/14/17 10:20 05:00 Total Bilirubin 3.5 H AST 93 H ALT 68 Alkaline Phosphatase 98 Vancomycin Trough 21.2 H* - Physical Exam General Appearance: non-toxic, other (Confused, mumbling responses) EENT: No scleral icterus, No conjunctival petechiae Respiratory: lungs clear, No respiratory distress Cardiac/Chest: regular rate, rhythm, other (Distant heart tones) Extremities: pedal edema (Pitting edema bilaterally), inflammation (No residual cellulitis; nontender to palpation) Abdomen: non-tender, No distended Skin: No embolic lesions - Line/s RUE PICC Lines: other (Ecchymoses surrounding insertion site), No drainage ICD10 Worksheet Patient Problems: Problems Problem Status Onset Alcohol intoxication Acute Altered mental status Acute Cellulitis Acute MRSA (methicillin resistant Staphylococcus aureus) Acute ~06/09/17 Dizziness Acute Dyspnea Acute Hypotension Acute Necrotizing fasciitis Acute Sepsis Acute
[2017-06-14] MEDS: INSULIN LISPRO 100 UNIT/ML SC SCH ×3 (10:33→18:12)
[2017-06-14] MEDS: VANCOMYCIN 1.25 GM in D5W 250 ML IV SCH ×2 (10:33→20:42)
[2017-06-14] MEDS: OLANZapine DISINTEGR 5 MG TAB PO PRN ×2 (10:53→16:20)
[2017-06-14] MEDS: amLODIPine BESYLATE 5 MG TAB PO SCH (12:03)
[2017-06-14] MEDS: FUROSEMIDE 20 MG TAB PO SCH ×3 (12:03→15:59)
[2017-06-14] MEDS ORDERED: FUROSEMIDE 20 MG/2 ML VIAL IVP ONE (14:42)
[2017-06-14] MEDS: IPRATROPIUM/ALBUTEROL 3 ML DEYVIAL IH PRN (15:17)
--- NOTE | 2017-06-14 15:35 | HOSPPROG ---
Hospitalist Progress Note Assessment/Plan: # MRSA bacteremia with septic shock - LE cellulitis source- Bcx through 12/03 all positive for staph - 06/14 NGTD TTE negative for endocarditis -cont IV Vanco -follow blood cultures # Leg cellulitis - no evidence for nec fasc- improving # Etoh withdrawal - severe -cont intermittent IV Precedex gtt - cont IV ativan prn - cont PO zyprexa prn -cont thiamine # ARF - single kidney s/p nephrectomy- creatinine 2.0 to 1.5 this am oxygen saturations 99% on RA- TELE (personally reviewed and interpreted) remains in sinus in 50's -holding lasix and spironolactone BID daily - lasix IV prn # 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 -complete Etoh cessation recommended # DIC - resolving - cont supportive care # Morbid Obesity BMI 47 # GIACOMO - CPAP # Metabolic encephalopathy - delirium with hallucinations # h/o PE -no prophylactic lovenox due to severe thrombocytopenia and coagulopathy -SCD # dispo - > 2MN as remains acutely very ill I have discussed case with RN - will work to wean off precedex again today and attempt PO intake Subjective: agitated Objective: Vital Signs Temp Pulse Resp BP Pulse Ox 36.6 C 52 L 14 155/91 H 100 06/14/17 06:00 06/14/17 15:07 06/14/17 15:07 06/14/17 14:56 06/14/17 15:07 Microbiology 06/11/17 06:35 Blood Panel (PCR) - Final Blood MRSA Laboratory Results 06/14/17 05:00 06/14/17 05:00 06/13/17 06/14/17 06/15/17 05:59 05:59 05:59 Intake Total 2270 998 Output Total 3690 6300 660 Balance -1420 -5302 -660 PT 22.0 SEC (12.0-15.0) H 06/13/17 04:45 INR 1.91 (0.83-1.16) H 06/13/17 04:45 - Physical Exam Constitutional: appears nourished, obese Eyes: anicteric sclera Ears, Nose, Mouth, Throat: moist mucous membranes Cardiovascular: regular rate and rhythym Respiratory: no respiratory distress, no rales or rhonchi Gastrointestinal: normoactive bowel sounds Genitourinary: no bladder fullness Skin: warm Musculoskeletal: No asymmetric calves Neurologic: No AAOx3 Psychiatric: encephalopathic Lymph, Heme, Immunologic: no cervical LAD ICD10 Worksheet Patient Problems: Problems Problem Status Onset Alcohol intoxication Acute Altered mental status Acute Cellulitis Acute MRSA (methicillin resistant Staphylococcus aureus) Acute ~06/09/17 Dizziness Acute Dyspnea Acute Hypotension Acute Necrotizing fasciitis Acute Sepsis Acute
[2017-06-14 19:31] LABS: POTASSIUM 3.2 mEq/L (3.5-5.2)
[2017-06-15] MEDS: DEXMEDETOMIDINE HCL 1,000 MCG in NS 250 ML IV SCH ×2 (01:00→08:48)
[2017-06-15 05:45] LABS: HEMATOCRIT 35.6 % (40.0-51.0); HEMOGLOBIN 12.4 g/dL (13.7-17.5); LIPEMIA HEMOLYSIS FLAG 90 (0-99); MEAN CELL HEMOGLOBIN 37.2 pg (27.9-34.1); MEAN CELL HEMOGLOBIN CONCENTR. 34.8 g/dL (32.4-36.7); MEAN CELL VOLUME 106.9 fL (81.5-99.8); PLATELET CLUMPS FLAG 0 (0-99); RED BLOOD CELL COUNT 3.33 10^6/uL (4.40-6.38); RED CELL DISTRIBUTION WIDTH 14.3 % (11.5-15.2)
[2017-06-15 05:51] LABS: PLATELET COUNT 29 10^3/uL (150-400)
[2017-06-15 05:53] LABS: ANION GAP 10 mEq/L (8-16); CALCIUM 8.7 mg/dL (8.5-10.4); CARBON DIOXIDE 22 mEq/l (22-31); CHLORIDE 113 mEq/L (97-110); CREATININE 1.3 mg/dL (0.7-1.3); GLOMERULAR FILTRATION RATE 56; GLUCOSE 136 mg/dL (70-100); POTASSIUM 3.7 mEq/L (3.5-5.2); SODIUM 145 mEq/L (134-144)
[2017-06-15 06:57] LABS: PLATELET ESTIMATE DECREASED (ADEQ)
[2017-06-15] MEDS: THIAMINE HCL 100 MG in NS 100 ML IV SCH (08:48)
[2017-06-15] MEDS ORDERED: POTASSIUM Cl (KCl) 50 ML IV ONE (09:21)
[2017-06-15] MEDS: VANCOMYCIN 1.25 GM in D5W 250 ML IV SCH ×2 (09:40→20:04)
[2017-06-15] MEDS: INSULIN LISPRO 100 UNIT/ML SC SCH ×3 (09:40→17:09)
--- NOTE | 2017-06-15 09:47 | PCMIDPN ---
Assessment/Plan: Assessment/Plan: * Sepsis due to MRSA bacteremia associated with left lower extremity cellulitis : 1 of 2 sets of blood cultures from 06/13/2017 coagulase-negative Staphylococcus rather than MRSA coagulase-negative Staphylococcus rather than MRSA. Will need 4 weeks of vancomycin. Repeat blood cultures are pending to ensure clearance of bacteremia. Will need change of PICC line once clinically stable given was placed when bacteremia present. Clinical findings and plan reviewed with Dr. Ramsey, nursing staff and patient' s . 06/15/17 09:44 Subjective: Patient remains confused this a.m.. Precedex discontinued this a.m.. Objective: Vital Signs Temp Pulse Resp BP Pulse Ox 37.2 C 46 L 14 156/92 H 99 06/15/17 00:00 06/15/17 09:04 06/15/17 09:04 06/15/17 09:04 06/15/17 09:04 Microbiology 06/11/17 06:35 Blood Panel (PCR) - Final Blood MRSA Laboratory Results 06/15/17 05:19 06/15/17 05:19 06/14/17 06/15/17 06/16/17 05:59 05:59 05:59 Intake Total 998 1576 Output Total 6300 9750 Balance -7837 -5670 Vancomycin # 6 Blood cultures 06/13/2017 1/2 sets coagulase-negative Staphylococcus Blood cultures 06/14/2017 pending Laboratory Tests 06/14/17 09:45 Vancomycin Trough 17.5 - Physical Exam General Appearance: non-toxic, other (Confused) EENT: No conjunctival petechiae Extremities: inflammation (Left lower extremity erythema, tenderness and induration resolved) Abdomen: non-tender, No distended Skin: other (Venous insufficiency changes of lower extremities present) - Line/s RUE PICC Lines: No drainage, No erythema ICD10 Worksheet Patient Problems: Problems Problem Status Onset Alcohol intoxication Acute Altered mental status Acute Cellulitis Acute MRSA (methicillin resistant Staphylococcus aureus) Acute ~06/09/17 Dizziness Acute Dyspnea Acute Hypotension Acute Necrotizing fasciitis Acute Sepsis Acute
--- NOTE | 2017-06-15 10:36 | PDINTPN ---
[employer] Super[employer] Progress Note Assessment/Plan: Assessment/Plan: * Sepsis/Septic shock-resolved * Cellulitis-Improved -surgery following * Bacteremia * Cirrhosis * Thrombocytopenia * Acute alcohol withdrawals-currently off Precedex * Morbid obesity * CRI * GIACOMO-on CPAP at night Overall slow to improve 06/15/17 10:34 Subjective: Up in chair. Hungry. More alert today Objective: Vital Signs Temp Pulse Resp BP Pulse Ox 37.2 C 46 L 14 156/92 H 99 06/15/17 00:00 06/15/17 09:04 06/15/17 09:04 06/15/17 09:04 06/15/17 09:04 Microbiology 06/11/17 06:35 Blood Panel (PCR) - Final Blood MRSA Laboratory Results 06/15/17 05:19 06/15/17 05:19 06/14/17 06/15/17 06/16/17 05:59 05:59 05:59 Intake Total 998 1576 Output Total 6300 3760 Balance -5302 -2184 PT 22.0 SEC (12.0-15.0) H 06/13/17 04:45 INR 1.91 (0.83-1.16) H 06/13/17 04:45 Physical Exam - Physical Exam General Appearance: no apparent distress EENT: PERRL/EOMI, normal ENT inspection Neck: non-tender, full range of motion, supple, normal inspection Respiratory: chest non-tender, lungs clear, normal breath sounds Cardiac/Chest: normal peripheral pulses, regular rate, rhythm Abdomen: normal bowel sounds, non-tender, soft Male Genitalia: deferred Rectal: deferred Extremities: normal range of motion, non-tender Neuro/Psych: cognition abnormalities ICD10 Worksheet Patient Problems: Problems Problem Status Onset Alcohol intoxication Acute Altered mental status Acute Cellulitis Acute MRSA (methicillin resistant Staphylococcus aureus) Acute ~06/09/17 Dizziness Acute Dyspnea Acute Hypotension Acute Necrotizing fasciitis Acute Sepsis Acute
[2017-06-15] MEDS: amLODIPine BESYLATE 5 MG TAB PO SCH (11:02)
--- NOTE | 2017-06-15 14:54 | HOSPPROG ---
Hospitalist Progress Note Assessment/Plan: # MRSA bacteremia with septic shock - LE cellulitis source- Bcx 06/13 with coag negative staph - 06/14 NGTD TTE negative for endocarditis -cont IV Vanco -follow blood cultures # Leg cellulitis - no evidence for nec fasc- improving # Etoh withdrawal - severe -cont intermittent IV Precedex gtt - cont IV ativan prn - cont PO zyprexa prn -cont thiamine # CORTNEY - single kidney s/p nephrectomy- creatinine 2.0 to 1.3 this am oxygen saturations 99% on RA- TELE (personally reviewed and interpreted) remains in sinus in 40- 50's -holding lasix and spironolactone BID daily -lasix IV prn # 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 -complete Etoh cessation recommended # DIC - resolving - cont supportive care # Morbid Obesity BMI 47 # GIACOMO - CPAP # Metabolic encephalopathy - delirium with hallucinations # h/o PE -no prophylactic lovenox due to severe thrombocytopenia and coagulopathy -SCD # dispo - > 2MN as remains acutely very ill I have discussed case with RN - working to keep patient off precedex Subjective: remains confused Objective: Vital Signs Temp Pulse Resp BP Pulse Ox 37.2 C 46 L 12 127/68 H 98 06/15/17 00:00 06/15/17 13:52 06/15/17 13:52 06/15/17 13:52 06/15/17 13:52 Microbiology 06/11/17 06:35 Blood Panel (PCR) - Final Blood MRSA Laboratory Results 06/15/17 05:19 06/15/17 05:19 06/14/17 06/15/17 06/16/17 05:59 05:59 05:59 Intake Total 998 1576 Output Total 6300 3760 Balance -5302 -2184 PT 22.0 SEC (12.0-15.0) H 06/13/17 04:45 INR 1.91 (0.83-1.16) H 06/13/17 04:45 - Physical Exam Constitutional: chronically ill appearing Eyes: anicteric sclera Ears, Nose, Mouth, Throat: dry mucous membranes Cardiovascular: regular rate and rhythym, bradycardia Respiratory: no respiratory distress Gastrointestinal: normoactive bowel sounds Genitourinary: no bladder fullness Skin: warm Musculoskeletal: No asymmetric calves Neurologic: No AAOx3 Psychiatric: encephalopathic Lymph, Heme, Immunologic: no cervical LAD ICD10 Worksheet Patient Problems: Problems Problem Status Onset Alcohol intoxication Acute Altered mental status Acute Cellulitis Acute MRSA (methicillin resistant Staphylococcus aureus) Acute ~06/09/17 Dizziness Acute Dyspnea Acute Hypotension Acute Necrotizing fasciitis Acute Sepsis Acute
[2017-06-15] MEDS: LACTULOSE 20 GM/30 ML UDCUP PO SCH ×2 (17:07→21:58)
[2017-06-15 18:24] LABS: POTASSIUM 3.5 mEq/L (3.5-5.2)
[2017-06-15] MEDS: POTASSIUM Cl (KCl) 50 ML IV SCH ×3 (20:25→21:57)
[2017-06-16] MEDS: ACETAMINOPHEN 325 MG TAB PO PRN (05:09)
[2017-06-16 05:17] LABS: POTASSIUM 3.8 mEq/L (3.5-5.2)
[2017-06-16] MEDS ORDERED: POTASSIUM CL 10 MEQ TAB PO ONE ×2 (06:08→20:34)
[2017-06-16] MEDS: amLODIPine BESYLATE 5 MG TAB PO SCH (08:12)
[2017-06-16] MEDS: LACTULOSE 20 GM/30 ML UDCUP PO SCH ×3 (08:12→21:29)
[2017-06-16] MEDS: THIAMINE HCL 100 MG in NS 100 ML IV SCH (08:12)
[2017-06-16] MEDS: INSULIN LISPRO 100 UNIT/ML SC SCH ×3 (08:34→17:40)
[2017-06-16] MEDS: oxyCODONE IR 5 MG TAB PO PRN (08:35)
--- NOTE | 2017-06-16 08:42 | PDINTPN ---
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 Awake and alert and oriented x3 * Morbid obesity * CRI * GIACOMO-on CPAP at night * Disposition-okay for floor Subjective: Sitting up. Comfortable. Alert and oriented. Objective: Vital Signs Temp Pulse Resp BP Pulse Ox 37.9 C 83 15 98/39 L 97 06/16/17 08:00 06/16/17 08:00 06/16/17 08:00 06/16/17 08:00 06/16/17 08:00 Microbiology 06/11/17 06:50 Blood Culture - Final Blood MRSA 06/11/17 06:35 Blood Culture - Final Blood MRSA Blood Panel (PCR) - Final MRSA Laboratory Results 06/15/17 05:19 06/16/17 04:55 06/15/17 06/16/17 06/17/17 05:59 05:59 05:59 Intake Total 1576 2287 Output Total 3760 1500 Balance -2184 787 PT 22.0 SEC (12.0-15.0) H 06/13/17 04:45 INR 1.91 (0.83-1.16) H 06/13/17 04:45 Physical Exam - Physical Exam General Appearance: WD/WN, alert, no apparent distress EENT: PERRL/EOMI, normal ENT inspection, pharynx normal, TMs normal Neck: non-tender, full range of motion, supple, normal inspection Respiratory: chest non-tender, lungs clear, normal breath sounds Cardiac/Chest: normal peripheral pulses, regular rate, rhythm Abdomen: normal bowel sounds, non-tender, soft Male Genitalia: deferred Rectal: deferred Skin: normal color, warm/dry Neuro/Psych: alert, oriented x 3 ICD10 Worksheet Patient Problems: Problems Problem Status Onset Alcohol intoxication Acute Altered mental status Acute Cellulitis Acute MRSA (methicillin resistant Staphylococcus aureus) Acute ~06/09/17 Dizziness Acute Dyspnea Acute Hypotension Acute Necrotizing fasciitis Acute Sepsis Acute
[2017-06-16] MEDS: VANCOMYCIN 1.25 GM in D5W 250 ML IV SCH (10:06)
--- NOTE | 2017-06-16 13:22 | HOSPPROG ---
Hospitalist Progress Note Assessment/Plan: # Hypothermia and Fever in past 12 hours Tmax 38.4 this am - however as low as 33.1 yesterday per catheter temperature measurements unclear if the low temperatures were mis-measurements this am is highest Tm in many days no new sx per patient - check BCx - check CXR as MS has wax and waned - rule out aspiration - monitor closely for additional symptoms # MRSA bacteremia with septic shock - LE cellulitis source- Bcx 06/13 with coag negative staph - 06/14 remain NGTD TTE negative for endocarditis -cont IV Vanco -follow blood cultures # Metabolic encephalopathy - delirium with hallucinations- markedly improved today - - dc precedex - dc prn ativan # Leg cellulitis - no evidence for nec fasc- improving # Etoh withdrawal - severe- markedly improved today -cont thiamine # CORTNEY - single kidney s/p nephrectomy- creatinine 2.0 to 1.3 this am oxygen saturations 95% on RA- TELE (personally reviewed and interpreted) remains in sinus in 40- 50's -holding lasix and spironolactone BID daily -lasix IV prn # 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 -complete Etoh cessation recommended # DIC - resolving - cont supportive care # Morbid Obesity BMI 47 # GIACOMO - CPAP # h/o PE -no prophylactic lovenox due to severe thrombocytopenia and coagulopathy -SCD # dispo - > 2MN as remains acutely very ill I have discussed case with RN - will monitor for recurrent fever today - avoid all sedating meds Subjective: denies SOB Objective: Vital Signs Temp Pulse Resp BP Pulse Ox 37.7 C 78 13 147/49 H 95 06/16/17 12:00 06/16/17 12:00 06/16/17 12:00 06/16/17 12:00 06/16/17 12:00 Microbiology 06/11/17 06:50 Blood Culture - Final Blood MRSA 06/11/17 06:35 Blood Culture - Final Blood MRSA Blood Panel (PCR) - Final MRSA Laboratory Results 06/15/17 05:19 06/16/17 04:55 06/15/17 06/16/17 06/17/17 05:59 05:59 05:59 Intake Total 1576 2287 Output Total 3760 1500 Balance -2184 787 PT 22.0 SEC (12.0-15.0) H 06/13/17 04:45 INR 1.91 (0.83-1.16) H 06/13/17 04:45 - Physical Exam Constitutional: obese Eyes: anicteric sclera Ears, Nose, Mouth, Throat: moist mucous membranes Cardiovascular: regular rate and rhythym, bradycardia Respiratory: no respiratory distress, reduced air movement (at bilateral bases) Gastrointestinal: normoactive bowel sounds Genitourinary: no bladder fullness Skin: warm Musculoskeletal: No asymmetric calves Neurologic: other (A & o x2) Psychiatric: interacting appropriately Lymph, Heme, Immunologic: no cervical LAD ICD10 Worksheet Patient Problems: Problems Problem Status Onset Alcohol intoxication Acute Altered mental status Acute Cellulitis Acute MRSA (methicillin resistant Staphylococcus aureus) Acute ~06/09/17 Dizziness Acute Dyspnea Acute Hypotension Acute Necrotizing fasciitis Acute Sepsis Acute
--- NOTE | 2017-06-16 16:50 | PCMIDPN ---
Assessment/Plan: Assessment/Plan: * Sepsis due to MRSA bacteremia associated with left lower extremity cellulitis : Blood cultures show clearing of bacteremia. Significant improvement clinically with resolution of cellulitis. Plan to change PICC line early this week given placed during active bacteremia. Continue vancomycin dosed according to levels and renal function. Level this a.m. of 26 - further Vanco held and will obtain BMP as well as random Vanco level in a.m. prior to resuming. * Fever: Low-grade fever today after some periods of hypothermia yesterday. No specific complaints and significantly improved clinically. Repeat blood cultures obtained and are pending. Is at risk for healthcare associated process sees such as catheter associated bacteremia. Chest x-ray without evidence of aspiration. Will not add additional antibiotics given clinical improvement otherwise pending further data. Clinical findings and plan reviewed with Dr. Ramsey, nursing staff and patient' s . 06/15/17 09:44 06/16/17 16:47 Subjective: Patient feels significantly better. Confusion has resolved. Still with some tenderness laterally over left lower extremity. Objective: Vital Signs Temp Pulse Resp BP Pulse Ox 37.7 C 88 16 141/53 H 100 06/16/17 16:00 06/16/17 16:00 06/16/17 16:00 06/16/17 16:00 06/16/17 16:00 Microbiology 06/11/17 06:50 Blood Culture - Final Blood MRSA 06/11/17 06:35 Blood Culture - Final Blood MRSA Blood Panel (PCR) - Final MRSA Laboratory Results 06/15/17 05:19 06/15/17 06/16/17 06/17/17 05:59 05:59 05:59 Intake Total 1576 2287 Output Total 3760 1500 Balance -2184 787 Vancomycin # 7 Blood cultures 06/14/2017 no growth Blood cultures 06/16/2017 pending Chest x-ray without focal infiltrate - Physical Exam General Appearance: alert, no apparent distress EENT: No thrush Respiratory: lungs clear (Anterolaterally) Cardiac/Chest: regular rate, rhythm Extremities: inflammation (Cellulitis over left lower extremity resolved with some early peeling of skin, nontender) Abdomen: non-tender, No distended Skin: No embolic lesions - Line/s RUE PICC Lines: No drainage, No erythema ICD10 Worksheet Patient Problems: Problems Problem Status Onset Alcohol intoxication Acute Altered mental status Acute Cellulitis Acute MRSA (methicillin resistant Staphylococcus aureus) Acute ~06/09/17 Dizziness Acute Dyspnea Acute Hypotension Acute Necrotizing fasciitis Acute Sepsis Acute
[2017-06-16 17:03] LABS: ANION GAP 10 mEq/L (8-16); CALCIUM 8.3 mg/dL (8.5-10.4); CARBON DIOXIDE 18 mEq/l (22-31); CHLORIDE 110 mEq/L (97-110); CREATININE 1.9 mg/dL (0.7-1.3); GLOMERULAR FILTRATION RATE 36; GLUCOSE 128 mg/dL (70-100); POTASSIUM 3.6 mEq/L (3.5-5.2); SODIUM 138 mEq/L (134-144)
[2017-06-17 01:36] LABS: HEMOGLOBIN A1C 5.2 % (4.0-6.0)
[2017-06-17 05:07] LABS: ADD DIFF? YES; ADD MORPH? NO; ADD SCAN? NO; ATYPICAL LYMPHOCYTE FLAG 0 (0-99); FRAGMENT RBC FLAG 0 (0-99); HEMOGLOBIN 11.5 g/dL (13.7-17.5); LEFT SHIFT FLG 50 (0-99); LIPEMIA HEMOLYSIS FLAG 90 (0-99); MEAN CELL HEMOGLOBIN 37.5 pg (27.9-34.1); MEAN CELL HEMOGLOBIN CONCENTR. 34.8 g/dL (32.4-36.7); MEAN CELL VOLUME 107.5 fL (81.5-99.8); MEAN PLATELET VOLUME 11.4 fL (8.7-11.7); PLATELET CLUMPS FLAG 10 (0-99); PLATELET COUNT 53 10^3/uL (150-400); RED BLOOD CELL COUNT 3.07 10^6/uL (4.40-6.38); RED CELL DISTRIBUTION WIDTH 15.1 % (11.5-15.2)
[2017-06-17 05:24] LABS: ANION GAP 10 mEq/L (8-16); CARBON DIOXIDE 17 mEq/l (22-31); CHLORIDE 112 mEq/L (97-110); CREATININE 2.1 mg/dL (0.7-1.3); GLOMERULAR FILTRATION RATE 32; GLUCOSE 116 mg/dL (70-100); POTASSIUM 3.6 mEq/L (3.5-5.2); SODIUM 139 mEq/L (134-144)
[2017-06-17 06:02] LABS: MACROCYTES 2+; PLATELET ESTIMATE DECREASED (ADEQ)
[2017-06-17] MEDS: INSULIN LISPRO 100 UNIT/ML SC SCH ×3 (08:36→09:35)
[2017-06-17] MEDS: LACTULOSE 20 GM/30 ML UDCUP PO SCH ×3 (08:37→22:40)
[2017-06-17] MEDS: THIAMINE HCL 100 MG TAB PO SCH (08:37)
[2017-06-17] MEDS: oxyCODONE IR 5 MG TAB PO PRN ×2 (08:41→19:41)
[2017-06-17] MEDS ORDERED: POTASSIUM CL 10 MEQ TAB PO ONE (08:57)
--- NOTE | 2017-06-17 09:39 | HOSPPROG ---
Hospitalist Progress Note Assessment/Plan: # CORTNEY - single kidney s/p nephrectomy- new rise in creatinine 1.3-> 2.1 concerning for possible AIN - vancomycin level yesterday 25.4 - blood pressures and urine output have been stable oxygen saturations 95% on RA - check UA - (looking for RBC or WBC casts) - add LFT to blood work- recent albumin - add differential to CBC (looking for eosinophilia) - holding lasix and spironolactone BID daily # Hypothermia and Fever none x 24 hours - possibly related to above? 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 -complete Etoh cessation recommended # DIC - resolving - cont supportive care # Morbid Obesity BMI 47 # GIACOMO - CPAP # h/o PE -no prophylactic lovenox due to severe thrombocytopenia and coagulopathy -SCD # dispo - > 2MN as remains acutely ill I have discussed case with RN - continue to hold diuretics as renal function is worsening Subjective: swelling is uncomfortable Objective: Vital Signs Temp Pulse Resp BP Pulse Ox 37.4 C 88 15 125/50 H 98 06/17/17 08:00 06/17/17 08:00 06/17/17 08:00 06/17/17 08:00 06/17/17 08:00 Microbiology 06/11/17 06:50 Blood Culture - Final Blood MRSA 06/11/17 06:35 Blood Culture - Final Blood MRSA Blood Panel (PCR) - Final MRSA Laboratory Results 06/17/17 04:45 06/17/17 04:45 06/16/17 06/17/17 06/18/17 05:59 05:59 05:59 Intake Total 2287 2550 Output Total 1500 2024 Balance 787 525 PT 22.0 SEC (12.0-15.0) H 07/13/17 04:45 INR 1.91 (0.83-1.16) H 06/13/17 04:45 - Physical Exam Constitutional: chronically ill appearing Eyes: anicteric sclera Ears, Nose, Mouth, Throat: moist mucous membranes Cardiovascular: regular rate and rhythym Respiratory: no respiratory distress, no rales or rhonchi Gastrointestinal: normoactive bowel sounds Genitourinary: no bladder fullness Skin: warm, normal color Musculoskeletal: No asymmetric calves Neurologic: AAOx3 Psychiatric: interacting appropriately, not anxious Lymph, Heme, Immunologic: no cervical LAD ICD10 Worksheet Patient Problems: Problems Problem Status Onset Alcohol intoxication Acute Altered mental status Acute Cellulitis Acute MRSA (methicillin resistant Staphylococcus aureus) Acute ~06/09/17 Dizziness Acute Dyspnea Acute Hypotension Acute Necrotizing fasciitis Acute Sepsis Acute
[2017-06-17 10:23] LABS: ALBUMIN 2.5 g/dL (3.5-5.0); BILIRUBIN,TOTAL 5.2 mg/dL (0.1-1.4); BILIRUBIN-CONJUGATED 2.1 mg/dL (0.0-0.5); BILIRUBIN-UNCONJUGATED 3.1 mg/dL (0.0-1.1); TOTAL PROTEIN 6.1 g/dL (6.3-8.2)
[2017-06-17] MEDS ORDERED: SIMETHICONE 80 MG TAB CHEW PO PRN (15:37)
--- NOTE | 2017-06-17 16:26 | PCMIDPN ---
Assessment/Plan: Assessment: MRSA septic shock and bacteremia secondary to probable right lower extremity cellulitis. Patient continues to improve on vancomycin monotherapy. Repeat blood cultures negative as of 06/13. Plan to continue vancomycin monotherapy. Leukocytosis has resolved. Plan: 1. Continue vancomycin monotherapy. 2. Hold Vanco for increasing creatinine and borderline trough levels. 3. Follow repeat blood cultures. Subjective: Patient is resting in his hospital bed. No new complaints. Feels overall better than last week. Tolerating vancomycin. Objective: Vancomycin # 8 Vital Signs Temp Pulse Resp BP Pulse Ox 37.0 C 86 16 149/56 H 95 06/17/17 15:57 06/17/17 15:57 06/17/17 15:57 06/17/17 15:57 06/17/17 15:57 Laboratory Results 06/17/17 04:45 06/17/17 04:45 06/16/17 06/17/17 06/18/17 05:59 05:59 05:59 Intake Total 2287 2550 Output Total 1500 2025 Balance 787 525 - Physical Exam General Appearance: WD/WN, alert, no apparent distress, obese, non-toxic Respiratory: lungs clear, normal breath sounds, No respiratory distress Cardiac/Chest: regular rate, rhythm, No tachycardia Extremities: pedal edema, calf tenderness, inflammation, swelling, No non-tender , No normal inspection Skin: normal color, warm/dry, No rash Neuro/Psych: alert, normal mood/affect ICD10 Worksheet Patient Problems: Problems Problem Status Onset Alcohol intoxication Acute Altered mental status Acute Cellulitis Acute MRSA (methicillin resistant Staphylococcus aureus) Acute ~06/09/17 Dizziness Acute Dyspnea Acute Hypotension Acute Necrotizing fasciitis Acute Sepsis Acute
[2017-06-17 20:34] LABS: COLOR YELLOW; LEUKOCYTE ESTERASE,URINE NEGATIVE (NEGATIVE); NITRITE,URINE NEGATIVE (NEGATIVE)
[2017-06-17 20:47] LABS: MUCUS TRACE /lpf (NONE-1+)
[2017-06-18] MEDS: oxyCODONE IR 5 MG TAB PO PRN ×3 (00:33→14:22)
[2017-06-18 06:21] LABS: POTASSIUM 3.7 mEq/L (3.5-5.2)
[2017-06-18] MEDS ORDERED: POTASSIUM CL 10 MEQ TAB PO ONE (07:01)
[2017-06-18] MEDS: THIAMINE HCL 100 MG TAB PO SCH (08:23)
[2017-06-18] MEDS: LACTULOSE 20 GM/30 ML UDCUP PO SCH ×3 (08:26→22:10)
[2017-06-18] MEDS ORDERED: ALTEPLASE 2 MG VIAL IVP PRN (08:42)
--- NOTE | 2017-06-18 08:47 | PCMIDPN ---
Assessment/Plan: Assessment/Plan: 1. MRSA bacteremia/sepsis secondary to Lower extremity cellulitis: - Erythema mostly resolved now. Legs examined while elevated. -MRSA with ALEXANDRA =1. -f/u blood cx from 06/14/17, and 06/16/17 ngtd -Last random vanco on 06/17/17 at 15.2. Last vanco dose was on 06/15/16 evening. Will re-dose Vanco today. Check random vanco in AM. -TTE without vegetations. Head Ct with no acute abnormalities. -Will need picc line changed now that bacteremia has cleared. New picc line orders placed. -Recheck cbc, cmp in AM. -care coordinated with JUDITH Nuñez vanco PRN based on levels for now. Subjective: afebrile. Much more alert, conversive, and energetic compared to last week. LEss overall pain involving his LLE. REdness of both extremities has largely resolved for the most part. almas abd pain. no diarrhea. denies shortness of breath. Objective: Vital Signs Temp Pulse Resp BP Pulse Ox 36.7 C 94 18 133/67 H 92 06/18/17 08:00 06/18/17 08:00 06/18/17 08:00 06/18/17 08:00 06/18/17 08:00 Microbiology 06/13/17 05:21 Blood Culture - Final Blood 06/13/17 04:59 Blood Culture - Final Blood Staphylococcus Epidermidis Laboratory Results 06/17/17 04:45 06/18/17 05:55 06/17/17 06/18/17 06/19/17 05:59 05:59 05:59 Intake Total 2550 Output Total 2024 600 Balance 525 -600 - Physical Exam General Appearance: alert, no apparent distress Respiratory: lungs clear Cardiac/Chest: regular rate, rhythm, systolic murmur (soft) Extremities: swelling Abdomen: normal bowel sounds, non-tender, soft, No distended Skin: No erythema (involving either LE for most part. small area of scaliness on the right lower leg. LLE with large surgical scar noted with some swelling around it. skin with mild warmth. ) ICD10 Worksheet Patient Problems: Problems Problem Status Onset Alcohol intoxication Acute Altered mental status Acute Cellulitis Acute MRSA (methicillin resistant Staphylococcus aureus) Acute ~06/09/17 Dizziness Acute Dyspnea Acute Hypotension Acute Necrotizing fasciitis Acute Sepsis Acute
[2017-06-18] MEDS ORDERED: VANCOMYCIN 1.5 GM in D5W 250 ML IV ONE (09:00)
[2017-06-18] MEDS: CALCIUM CARBONATE 500 MG CHEWABLE TAB PO PRN ×3 (12:08→22:17)
[2017-06-18 12:31] LABS: ADD DIFF? YES; ADD MORPH? NO; ADD SCAN? NO; ATYPICAL LYMPHOCYTE FLAG 0 (0-99); FRAGMENT RBC FLAG 0 (0-99); HEMATOCRIT 33.1 % (40.0-51.0); HEMOGLOBIN 11.4 g/dL (13.7-17.5); LEFT SHIFT FLG 40 (0-99); LIPEMIA HEMOLYSIS FLAG 90 (0-99); MEAN CELL HEMOGLOBIN 36.9 pg (27.9-34.1); MEAN CELL HEMOGLOBIN CONCENTR. 34.4 g/dL (32.4-36.7); MEAN CELL VOLUME 107.1 fL (81.5-99.8); MEAN PLATELET VOLUME 11.3 fL (8.7-11.7); PLATELET CLUMPS FLAG 10 (0-99); PLATELET COUNT 52 10^3/uL (150-400); RED BLOOD CELL COUNT 3.09 10^6/uL (4.40-6.38); RED CELL DISTRIBUTION WIDTH 14.8 % (11.5-15.2)
[2017-06-18 13:28] LABS: PLATELET ESTIMATE DECREASED (ADEQ)
[2017-06-18 13:30] LABS: MACROCYTES 2+; TOXIC GRANULATION PRESENT
[2017-06-18 14:57] LABS: ANION GAP 8 mEq/L (8-16); CALCIUM 8.3 mg/dL (8.5-10.4); CARBON DIOXIDE 18 mEq/l (22-31); CHLORIDE 110 mEq/L (97-110); CREATININE 2.1 mg/dL (0.7-1.3); GLOMERULAR FILTRATION RATE 32; GLUCOSE 145 mg/dL (70-100); POTASSIUM 3.8 mEq/L (3.5-5.2); SODIUM 136 mEq/L (134-144)
[2017-06-18] MEDS ORDERED: ALBUMIN 25% 100 ML IV ONE (15:50)
--- NOTE | 2017-06-18 15:51 | HOSPPROG ---
Hospitalist Progress Note Assessment/Plan: # CORTNEY - single kidney s/p nephrectomy- new rise in creatinine 1.3-> 2.1 previous CORTNEY 2/2 hypovolemia - pt intake has been adequate is hypervolemic on exam concerning for possible AIN - vancomycin level 25.4 06/17 now down to 15 - being redosed today blood pressures and urine output have been stable- UA without marked RBC or casts and peripheral differential without eosinophils oxygen saturations 95% on RA - check albumin, phos, urine sodium - renal US of remaining kidney - empiric IV albumin Q6 for renal hypoperfusion in setting of liver disease - holding lasix and spironolactone BID daily - will consult nephrology as not improving # Hypothermia and Fever none x 72 hours - possibly related to above? CXR (personally reviewed and interpreted) no infiltrates - continue current abx - continue to monitor # MRSA bacteremia with septic shock - LE cellulitis source- Bcx 06/13 with coag negative staph - 06/14 remain NGTD TTE negative for endocarditis -cont IV Vanco - dosing per troughs -PICC replaced today # Marked LE edema - avoiding diuretics in setting of CORTNEY - elevate and AUDRA hose if able # Metabolic encephalopathy - patient has entirely cleared # Leg cellulitis - no evidence for nec fasc- edema is worse off diuretics however must hold 2/2 CORTNEY # Etoh withdrawal - resolved-cont thiamine # 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-complete Etoh cessation recommended # Morbid Obesity BMI 47 # GIACOMO - CPAP # h/o PE -no prophylactic lovenox due to severe thrombocytopenia and coagulopathy -SCD # dispo - > 2MN as remains acutely ill I have discussed case with Nephrology - they will consult for CORTNEY and ongoing management Subjective: no new pain - LE edema remains uncomfortable Objective: Vital Signs Temp Pulse Resp BP Pulse Ox 36.7 C 94 18 133/67 H 92 06/18/17 08:00 06/18/17 08:00 06/18/17 08:00 06/18/17 08:00 06/18/17 08:00 Microbiology 06/13/17 05:21 Blood Culture - Final Blood 06/13/17 04:59 Blood Culture - Final Blood Staphylococcus Epidermidis Laboratory Results 06/18/17 12:10 06/18/17 12:50 06/17/17 06/18/17 06/19/17 05:59 05:59 05:59 Intake Total 2550 Output Total 2024 600 Balance 525 -600 PT 22.0 SEC (12.0-15.0) H 06/13/17 04:45 INR 1.91 (0.83-1.16) H 06/13/17 04:45 - Physical Exam Constitutional: obese Eyes: anicteric sclera Ears, Nose, Mouth, Throat: moist mucous membranes Cardiovascular: regular rate and rhythym Respiratory: no respiratory distress Gastrointestinal: normoactive bowel sounds Genitourinary: no bladder fullness Skin: warm, normal color Musculoskeletal: other (marked symetric edema), No asymmetric calves Neurologic: AAOx3 Psychiatric: interacting appropriately, not anxious Lymph, Heme, Immunologic: no cervical LAD ICD10 Worksheet Patient Problems: Problems Problem Status Onset Alcohol intoxication Acute Altered mental status Acute Cellulitis Acute MRSA (methicillin resistant Staphylococcus aureus) Acute ~06/09/17 Dizziness Acute Dyspnea Acute Hypotension Acute Necrotizing fasciitis Acute Sepsis Acute
[2017-06-18] MEDS: ALBUMIN 25% 100 ML IV SCH ×2 (16:14→16:25)
[2017-06-18 16:19] LABS: ALBUMIN 2.4 g/dL (3.5-5.0); BILIRUBIN,TOTAL 4.9 mg/dL (0.1-1.4); BILIRUBIN-UNCONJUGATED 2.9 mg/dL (0.0-1.1); TOTAL PROTEIN 5.8 g/dL (6.3-8.2)
[2017-06-18 19:07] LABS: RANDOM URINE POTASSIUM 16.6 mEq/L (0.5-35.0)
[2017-06-18 20:24] LABS: URIC ACID 12.2 mg/dL (3.5-8.5)
[2017-06-18 21:41] LABS: EOSMR RBCS FEW RBCS
[2017-06-18 21:43] LABS: EOSMR EOSINOPHILS FEW EOS (NO EOS SEEN); EOSMR EPITHELIAL CELLS FEW EPITH CELLS
[2017-06-18 21:44] LABS: EOSMR PMNS MODERATE PMN CELLS
[2017-06-19] MEDS: oxyCODONE IR 5 MG TAB PO PRN ×3 (00:13→20:17)
[2017-06-19] MEDS: ALBUMIN 25% 100 ML IV SCH ×5 (00:14→23:26)
[2017-06-19 05:46] LABS: % IMMATURE GRANULYOCYTES 1.4 % (0.0-1.1); ABSOLUTE IMMATURE GRANULOCYTES 0.13 10^3/uL (0.00-0.10); ADD DIFF? NO; ADD MORPH? NO; ADD SCAN? NO; ATYPICAL LYMPHOCYTE FLAG 0 (0-99); FRAGMENT RBC FLAG 0 (0-99); HEMATOCRIT 30.2 % (40.0-51.0); HEMOGLOBIN 10.1 g/dL (13.7-17.5); LEFT SHIFT FLG 20 (0-99); LIPEMIA HEMOLYSIS FLAG 80 (0-99); MEAN CELL HEMOGLOBIN 36.6 pg (27.9-34.1); MEAN CELL HEMOGLOBIN CONCENTR. 33.4 g/dL (32.4-36.7); MEAN CELL VOLUME 109.4 fL (81.5-99.8); MEAN PLATELET VOLUME 11.1 fL (8.7-11.7); PLATELET CLUMPS FLAG 10 (0-99); RED BLOOD CELL COUNT 2.76 10^6/uL (4.40-6.38); RED CELL DISTRIBUTION WIDTH 14.6 % (11.5-15.2)
[2017-06-19 05:50] LABS: PLATELET COUNT 41 10^3/uL (150-400)
[2017-06-19 05:59] LABS: ALANINE AMINOTRANSFERASE 46 IU/L (21-72); ALBUMIN 2.3 g/dL (3.5-5.0); ALKALINE PHOSPHATASE 97 IU/L (38-126); ANION GAP 8 mEq/L (8-16); ASPARTATE AMINOTRANSFERASE 57 IU/L (17-59); CALCIUM 8.6 mg/dL (8.5-10.4); CARBON DIOXIDE 19 mEq/l (22-31); CHLORIDE 110 mEq/L (97-110); CREATININE 2.1 mg/dL (0.7-1.3); GLOMERULAR FILTRATION RATE 32; GLUCOSE 103 mg/dL (70-100); POTASSIUM 3.9 mEq/L (3.5-5.2); SODIUM 137 mEq/L (134-144); TOTAL PROTEIN 5.5 g/dL (6.3-8.2)
[2017-06-19 06:04] LABS: VANCOMYCIN RANDOM LEVEL 11.8 mcg/mL (0.0-40.0)
[2017-06-19 06:24] LABS: PLATELET ESTIMATE DECREASED (ADEQ)
[2017-06-19 06:33] LABS: BILIRUBIN-CONJUGATED 1.7 mg/dL (0.0-0.5); BILIRUBIN-UNCONJUGATED 2.3 mg/dL (0.0-1.1)
[2017-06-19] MEDS ORDERED: POTASSIUM CL 10 MEQ TAB PO ONE (08:07)
[2017-06-19] MEDS: LACTULOSE 20 GM/30 ML UDCUP PO SCH ×3 (09:03→19:24)
[2017-06-19] MEDS: THIAMINE HCL 100 MG TAB PO SCH (09:13)
--- NOTE | 2017-06-19 09:28 | SOAPPROG ---
SOAP Progress Note Assessment/Plan: Assessment: Objective: Vital Signs Temp Pulse Resp BP Pulse Ox 36.8 C 86 14 155/47 H 96 06/19/17 08:00 06/18/17 22:12 06/18/17 22:12 06/19/17 08:00 06/19/17 08:00 Microbiology 06/13/17 05:21 Blood Culture - Final Blood 06/13/17 04:59 Blood Culture - Final Blood Staphylococcus Epidermidis Laboratory Results 06/19/17 05:30 06/19/17 05:30 06/18/17 06/19/17 06/20/17 05:59 05:59 05:59 Intake Total 2050 Output Total 600 225 Balance -600 1825 PT 22.0 SEC (12.0-15.0) H 06/13/17 04:45 INR 1.91 (0.83-1.16) H 06/13/17 04:45 ICD10 Worksheet Patient Problems: Problems Problem Status Onset Alcohol intoxication Acute Altered mental status Acute Cellulitis Acute MRSA (methicillin resistant Staphylococcus aureus) Acute ~06/09/17 Dizziness Acute Dyspnea Acute Hypotension Acute Necrotizing fasciitis Acute Sepsis Acute
--- NOTE | 2017-06-19 09:35 | SOAPPROG ---
SOAP Progress Note Assessment/Plan: Assessment: 1. Non oliguric CORTNEY Reviewed chart with patient. His BL Cr appears to be around 1.3. He is now plateaued in the low 2's. In reviewing his data, he did undergo a significant net diuresis on the . His vanco level also increased (cause and effect relating to his renal failure are difficult to determine). He had a hypotensive episode on the . He does not have ongoing pyuria. I suspect he has ischemic ATN and/or Vanco. He is non oliguric. I/O are not accurate as he has been using commode. He remains overloaded, primarily third spacing in his LE. Agree at this time in continuing albumin. He does not appear to need diuretics at this time. 2. MRSA bacteremia ID following. His Vanco is on hold for the time being. I will discuss with him. 3. ETOH Cirrhosis Again, the albumin will be helpful relating to this. Subjective: Doing better Objective: Vital Signs Temp Pulse Resp BP Pulse Ox 36.8 C 86 14 155/47 H 96 06/19/17 08:00 06/18/17 22:12 06/18/17 22:12 06/19/17 08:00 06/19/17 08:00 Microbiology 06/13/17 05:21 Blood Culture - Final Blood 06/13/17 04:59 Blood Culture - Final Blood Staphylococcus Epidermidis Laboratory Results 06/19/17 05:30 06/19/17 05:30 06/18/17 06/19/17 06/20/17 05:59 05:59 05:59 Intake Total 2050 Output Total 600 225 Balance -600 1825 PT 22.0 SEC (12.0-15.0) H 06/13/17 04:45 INR 1.91 (0.83-1.16) H 06/13/17 04:45 Physical Exam - Physical Exam General Appearance: no apparent distress Respiratory: lungs clear Cardiac/Chest: regular rate, rhythm Extremities: pedal edema (3+) Neuro/Psych: oriented x 3 ICD10 Worksheet Patient Problems: Problems Problem Status Onset Alcohol intoxication Acute Altered mental status Acute Cellulitis Acute MRSA (methicillin resistant Staphylococcus aureus) Acute ~06/09/17 Dizziness Acute Dyspnea Acute Hypotension Acute Necrotizing fasciitis Acute Sepsis Acute
--- NOTE | 2017-06-19 09:58 | GCON ---
[f rep st] CONSULTATION DATE OF CONSULTATION: 06/18/2017 REASON FOR CONSULTATION: Opinion regarding acute kidney injury in a patient with known stage 3 fly tier joselo kidney disease. HISTORY OF PRESENT ILLNESS: The patient is a very pleasant 61-year-old gentleman with chronic kidne y disease stage 3 with a baseline creatinine between 1.6 and 1.7 due to decreased nephron mass from right nephrectomy about 6 years ago for renal cell carcinoma. The patient has a history of pulmonar y embolism in the past in 2006 and had necrotizing fasciitis due to Staphylococcus aureus in 2013. The patient was in his usual state of health until a couple of weekends ago when he began having yi n in his leg that he had necrotizing fasciitis in previously. He began having shaking chills and fe katherine, was brought to the emergency department, admitted to the intensive care unit with hypotension. He did have MRSA bacteremia. This led to acute kidney injury but did not require dialysis. Serum creatinine peaked in the low 2s and came down to 1.3 by 06/15/2017. At that point he began having h ypotension once again with systolic blood pressures in the low 100s. Serum creatinine the following day beatrice to 1.9. On the his systolic blood pressures were in the 90s and on 06/17 a serum cre atinine was 2.1. Blood pressures leveled off and his serum creatinine was 2.1 again today. Current ly the patient feels well. He is not having fevers, chills, nausea, vomiting, chest pain, shortness of breath, cough, sputum, hemoptysis, hematemesis, epistaxis, abdominal pain, diarrhea, constipatio n, diminished urine output, gross hematuria, or dysuria. He is not using any nonsteroidal anti-infl ammatory drugs. PAST MEDICAL HISTORY: Significant for: 1. Stage 3 chronic kidney disease, baseline creatinine between 1.6 and 1.7 due to decreased nephron mass. 2. Status post right nephrectomy about 6 years ago for renal cell carcinoma. 3. History of renal cell carcinoma, he has been released from his oncologist. 4. Obstructive sleep apnea syndrome. 5. Life-threatening obesity. 6. History of pulmonary embolism in 2006. 7. History of necrotizing fasciitis in 2013. CURRENT MEDICATIONS: Include albumin 100 cc every 6 hours, Norvasc 5 mg a day, calcium carbonate, l actulose 20 g 3 times daily, potassium protocol, Zofran, vitamin B1, and vancomycin was given today 1.5 g IV. ALLERGIES: None known. FAMILY HISTORY: Positive for cancer. Negative for renal disease, diabetes, or hypertension. SOCIAL HISTORY: He is . He has 3 children. 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 He does not use tobacco, IV or recreational drugs. He does drink alcohol. He enjoys traveling with his . REVIEW OF SYSTEMS: A complete 12-point review of systems was performed with pertinent positives and negatives as per the previous sections. PHYSICAL EXAMINATION: VITAL SIGNS: Blood pressure 157/59, pulse 80, respirations 18, temperature 3 6.6 degrees. Urine output 225 cc measured although he says he has been drinking and eating while in pain quite a lot. GENERAL: He is awake, alert, cooperative, in no distress. HEENT: Pupils are r eactive to light. Extraocular movements are intact. Mucous membranes are moist. NECK: Thick. No lymphadenopathy or thyromegaly. HEART: Regular. No rub. No S3. LUNGS: Decreased breath sounds in the bases. No rhonchi or wheezes. ABDOMEN: Obese. Bowel sounds positive. Nontender. Nondis tended. EXTREMITIES: Positive peripheral edema. NEUROLOGIC: No asterixis. SKIN: Changes of josefina lulitis are significantly improved per the Infectious Disease folks. He also has surgical scars fro m his necrotizing fasciitis in 2014. LYMPH: Positive lymphedema, particularly in his left lower ex tremity. MUSCULOSKELETAL: No effusions or tenderness. LABORATORY: Serum sodium is 136, potassium 3.8, chloride 110, CO2 18, BUN 45, creatinine 2.1, gluco se 145. WBCs 10.8, hemoglobin 11.4, hematocrit 33, platelet count 52,000. Calcium 8.3, phosphorus 3.5, albumin 2.4, total bilirubin of 4.9. Hepatitis A, B, and C are all negative. AST is 69. Bloo d cultures x6 were positive for MRSA. Urinalysis specific gravity 1.013, pH 6, negative protein, +2 blood, 1-3 RBCs. Transthoracic echocardiogram was negative for vegetation. Renal ultrasound is pending. SPEP in 2015 was negative. IMPRESSION: 1. Acute kidney injury, likely due to hypotension. His initial acute kidney injury that recovered down to serum creatinine 1.3. After hypotension once again, it did increase up to 2.1, but it has b een stable at 2.1 for the last couple of days. 2. Decreased nephron mass due to renal cell carcinoma. 3. Cellulitis with Methicillin resistant Staphylococcus aureus sepsis which is improving. 4. Life-threatening obesity. 5. Alcoholic cirrhosis. RECOMMENDATIONS: 1. We will collect spot urine chemistries. 2. We will check a renal ultrasound. 3. There are no urgent dialysis needs at this time. I suspect that with his IV albumin we will see an improvement in his renal function by tomorrow or the next day. 4. Continue to follow his electrolytes, volume status, and renal function. 5. We may need to begin some gentle diuresis in the next day or 2 as well. Thank you for allowing me to participate in the care of your patient. If there are any questions pl ease do not hesitate to contact me. I will be following along with you. /[id number]/MODL
--- NOTE | 2017-06-19 10:34 | PCMIDPN ---
Assessment/Plan: Assessment/Plan: * Sepsis due to MRSA bacteremia associated with left lower extremity cellulitis : Blood cultures show clearing of bacteremia. Marked clinical improvement without evidence of active cellulitis. PICC line changed yesterday since initial PICC placed during bacteremia. Creatinine stable at 2.1. Received dose of vancomycin yesterday. Anticipate likely to have therapeutic level at least through tomorrow. Reviewed with Nephrology. Will plan to complete therapy with daptomycin given increase in creatinine and solitary kidney with goal of minimizing nephrotoxicity. 06/16/17 16:47 06/19/17 10:31 Subjective: Patient states he feels great. No left lower extremity tenderness. Nephrology consultation reviewed and discussed findings with Dr. Schaeffer. Objective: Vital Signs Temp Pulse Resp BP Pulse Ox 36.8 C 86 14 155/47 H 96 06/19/17 08:00 06/18/17 22:12 06/18/17 22:12 06/19/17 08:00 06/19/17 08:00 Microbiology 06/13/17 05:21 Blood Culture - Final Blood 06/13/17 04:59 Blood Culture - Final Blood Staphylococcus Epidermidis Laboratory Results 06/19/17 05:30 06/19/17 05:30 06/18/17 06/19/17 06/20/17 05:59 05:59 05:59 Intake Total 2050 Output Total 600 225 Balance -600 1825 Vancomycin # 10 (Status post 1.5 g 06/18/2017) - Physical Exam General Appearance: alert, no apparent distress EENT: No thrush, No conjunctival petechiae Respiratory: lungs clear, No respiratory distress Cardiac/Chest: regular rate, rhythm, No systolic murmur Extremities: inflammation (3+ edema persists without evidence of active cellulitis; no longer tender over lateral left lower extremity) Abdomen: non-tender, No distended ICD10 Worksheet Patient Problems: Problems Problem Status Onset Alcohol intoxication Acute Altered mental status Acute Cellulitis Acute MRSA (methicillin resistant Staphylococcus aureus) Acute ~06/09/17 Dizziness Acute Dyspnea Acute Hypotension Acute Necrotizing fasciitis Acute Sepsis Acute
--- NOTE | 2017-06-19 17:43 | HOSPPROG ---
Hospitalist Progress Note Assessment/Plan: assessment: 61-year-old male presents with septic shock in the setting of MR assay bacteremia complicated by acute kidney injury Plan: # Septic Shock - POA, evidenced by SOFA score of 9 (also w/ MAP 48, lact 4.9, end-organ failure), meeting all sepsis-3/ICDS-3 criteria, resolved # Suspected ATN - non-oliguric CORTNEY w/ hypotension and suspected ischemic ATN vs. vanco-toxicity in setting of single kidney s/p nephrectomy - cont albumin to increase perfusion - Cr plateau at 2.1 - counseled patient about collecting urine accurately - hold on diuretics - appreciate ongoing renal consult # MRSA bacteremia - LE cellulitis source, Bcx 06/14 remain NGTD and PICC has been replaced - TTE negative for endocarditis - per ID, adjusting to Dapto given CORTNEY # Marked LE edema - avoiding diuretics in setting of CORTNEY - elevate and AUDRA hose if able # Metabolic encephalopathy - patient has entirely cleared # Leg cellulitis - no evidence for nec fasc- edema is worse off diuretics however must hold 2/2 CORTNEY # Etoh withdrawal - resolved-cont thiamine # 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 06/21, pending stabilization of renal function off albumin Subjective: Counseled patient regarding collection of urine and elevation of lower extremities Objective: Vital Signs Temp Pulse Resp BP Pulse Ox 37.0 C 92 16 153/52 H 96 06/19/17 16:00 06/19/17 16:00 06/19/17 16:00 06/19/17 16:00 06/19/17 16:00 Microbiology 06/14/17 12:50 Blood Culture - Final Blood 06/14/17 12:50 Blood Culture - Final Blood Laboratory Results 06/19/17 05:30 06/19/17 05:30 06/18/17 06/19/17 06/20/17 05:59 05:59 05:59 Intake Total 0 Output Total 600 225 Balance -600 1825 PT 22.0 SEC (12.0-15.0) H 06/13/17 04:45 INR 1.91 (0.83-1.16) H 06/13/17 04:45 - Time Spent With Patient Time Spent with Patient: greater than 35 minutes Time Spent with Patient: Greater than 35 minutes spent on this patients care, greater than 50% of time spent counseling, educating, and coordinating care regarding the above mentioned plan. - Physical Exam Constitutional: not in pain, chronically ill appearing, obese, No uncomfortable Cardiovascular: systolic murmur ( 2/6 systolic at the sternum and apex), edema ( 2+ bilateral lower extremity), No irregularly irregular, No tachycardia Respiratory: no respiratory distress, no rales or rhonchi, clear to auscultation Gastrointestinal: normoactive bowel sounds, soft, non-tender abdomen, no palpable masses Skin: other ( erythematous scarred left lower extremity with some excoriations) Neurologic: AAOx3 Psychiatric: interacting appropriately, not anxious, not encephalopathic, thought process linear ICD10 Worksheet Patient Problems: Problems Problem Status Onset Alcohol intoxication Acute Altered mental status Acute Cellulitis Acute MRSA (methicillin resistant Staphylococcus aureus) Acute ~06/09/17 Dizziness Acute Dyspnea Acute Hypotension Acute Necrotizing fasciitis Acute Sepsis Acute
[2017-06-20] MEDS: oxyCODONE IR 5 MG TAB PO PRN (00:07)
[2017-06-20 05:04] LABS: ADD DIFF? YES; ADD MORPH? NO; ADD SCAN? NO; ALANINE AMINOTRANSFERASE 48 IU/L (21-72); ALBUMIN 2.6 g/dL (3.5-5.0); ALKALINE PHOSPHATASE 86 IU/L (38-126); ANION GAP 7 mEq/L (8-16); ASPARTATE AMINOTRANSFERASE 59 IU/L (17-59); ATYPICAL LYMPHOCYTE FLAG 0 (0-99); BILIRUBIN,TOTAL 3.4 mg/dL (0.1-1.4); CALCIUM 8.6 mg/dL (8.5-10.4); CARBON DIOXIDE 21 mEq/l (22-31); CHLORIDE 109 mEq/L (97-110); CREATININE 1.9 mg/dL (0.7-1.3); FRAGMENT RBC FLAG 0 (0-99); GLOMERULAR FILTRATION RATE 36; GLUCOSE 97 mg/dL (70-100); HEMATOCRIT 27.1 % (40.0-51.0); HEMOGLOBIN 9.1 g/dL (13.7-17.5); LEFT SHIFT FLG 10 (0-99); LIPEMIA HEMOLYSIS FLAG 80 (0-99); MEAN CELL HEMOGLOBIN 36.7 pg (27.9-34.1); MEAN CELL HEMOGLOBIN CONCENTR. 33.6 g/dL (32.4-36.7); MEAN CELL VOLUME 109.3 fL (81.5-99.8); MEAN PLATELET VOLUME 11.6 fL (8.7-11.7); PLATELET CLUMPS FLAG 0 (0-99); RED BLOOD CELL COUNT 2.48 10^6/uL (4.40-6.38); RED CELL DISTRIBUTION WIDTH 14.3 % (11.5-15.2); SODIUM 137 mEq/L (134-144); TOTAL PROTEIN 5.6 g/dL (6.3-8.2)
[2017-06-20 05:07] LABS: PLATELET COUNT 33 10^3/uL (150-400)
[2017-06-20] MEDS: ALBUMIN 25% 100 ML IV SCH ×4 (05:20→23:59)
[2017-06-20 06:07] LABS: BILIRUBIN-CONJUGATED 1.3 mg/dL (0.0-0.5); BILIRUBIN-UNCONJUGATED 2.1 mg/dL (0.0-1.1)
[2017-06-20 06:17] LABS: MACROCYTES 2+; PLATELET ESTIMATE DECREASED (ADEQ); TOXIC GRANULATION PRESENT
[2017-06-20] MEDS: THIAMINE HCL 100 MG TAB PO SCH (08:03)
[2017-06-20] MEDS ORDERED: CARVEDILOL 3.125 MG TAB PO SCH (08:54)
[2017-06-20] MEDS: LACTULOSE 20 GM/30 ML UDCUP PO SCH ×3 (09:49→19:26)
--- NOTE | 2017-06-20 12:18 | SOAPPROG ---
SOAP Progress Note Assessment/Plan: Assessment: 06/20/17 12:16 1. CORTNEY on CKD Cr down from peak. He has non oliguric ATN vs Vanco toxicity. He has been switched to Dapto. Remains total body volume up. He has 3rd spacing aggravated by his portal HTN and hypoalbuminemia. Feel that albumin is justified in order to treat edema that is exacerbating cellulitis. Reviewed labs with him. For now, expect slow improvement in Cr. Continue albumin and add lasix. Keep legs elevated. Restrict sodium and fluids. Subjective: In good spirits Objective: Vital Signs Temp Pulse Resp BP Pulse Ox 36.8 C 91 16 173/76 H 93 06/20/17 08:05 06/20/17 08:05 06/20/17 08:05 06/20/17 08:05 06/20/17 08:05 Microbiology 06/14/17 12:50 Blood Culture - Final Blood 06/14/17 12:50 Blood Culture - Final Blood Laboratory Results 06/20/17 04:40 06/20/17 04:40 06/19/17 06/20/17 06/21/17 05:59 05:59 05:59 Intake Total 2050 2240 Output Total 225 1900 Balance 1825 340 PT 22.0 SEC (12.0-15.0) H 06/13/17 04:45 INR 1.91 (0.83-1.16) H 06/13/17 04:45 Physical Exam - Physical Exam General Appearance: no apparent distress Respiratory: lungs clear Cardiac/Chest: regular rate, rhythm Extremities: pedal edema Neuro/Psych: oriented x 3 ICD10 Worksheet Patient Problems: Problems Problem Status Onset Alcohol intoxication Acute Altered mental status Acute Cellulitis Acute MRSA (methicillin resistant Staphylococcus aureus) Acute ~06/09/17 Dizziness Acute Dyspnea Acute Hypotension Acute Necrotizing fasciitis Acute Sepsis Acute
[2017-06-20] MEDS: FUROSEMIDE 40 MG TAB PO SCH ×2 (12:34→16:17)
--- NOTE | 2017-06-20 14:57 | HOSPPROG ---
Hospitalist Progress Note Assessment/Plan: assessment: 61-year-old male presents with septic shock in the setting of MRSA bacteremia complicated by acute kidney injury Plan: # Septic Shock - POA, evidenced by SOFA score of 9 (also w/ MAP 48, lact 4.9, end-organ failure), meeting all sepsis-3/ICDS-3 criteria, resolved # Suspected ATN on CKD stage III - non-oliguric CORTNEY w/ hypotension and suspected ischemic ATN vs. vanco-toxicity in setting of single kidney s/p nephrectomy - cont albumin to increase perfusion, added lasix today 40mg bid, gauge net effect over next 24hrs, and consider discontinuing albumin thereafter - Cr plateau at 2.1, downtrending - UOP [id number] - appreciate ongoing renal consult # MRSA bacteremia - LE cellulitis source, Bcx 06/14 remain NGTD and PICC has been replaced - TTE negative for endocarditis - appreciate ongoing ID consult, cont on Dapto # Marked LE edema - adding diuretic today - elevate and AUDRA hose if able # Metabolic encephalopathy - patient has entirely cleared # Leg cellulitis - no evidence for nec fasc- edema is worse off diuretics however must hold 2/2 CORTNEY # Etoh withdrawal - resolved-cont thiamine # 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-complete Etoh cessation recommended # Morbid Obesity BMI 47 # GIACOMO - CPAP # ppx - high risk, pharm contraindicated given thrombocytopenia # diet - regular # code - full # dispo - ADD 06/22, pending stabilization of renal function off albumin Subjective: Reports ongoing lower extremity edema, regular urine output Objective: Vital Signs Temp Pulse Resp BP Pulse Ox 36.8 C 91 16 173/76 H 93 06/20/17 08:05 06/20/17 08:05 06/20/17 08:05 06/20/17 08:05 06/20/17 08:05 Microbiology 06/14/17 12:50 Blood Culture - Final Blood 06/14/17 12:50 Blood Culture - Final Blood Laboratory Results 06/20/17 04:40 06/20/17 04:40 06/19/17 06/20/17 06/21/17 05:59 05:59 05:59 Intake Total 2050 2240 Output Total 225 1900 300 Balance 1825 340 -300 PT 22.0 SEC (12.0-15.0) H 06/13/17 04:45 INR 1.91 (0.83-1.16) H 06/13/17 04:45 - Physical Exam Constitutional: not in pain, chronically ill appearing, obese, No uncomfortable Cardiovascular: regular rate and rhythym, no murmur, rub, or gallop, edema (2+ bilat LE), No irregularly irregular Respiratory: no respiratory distress, no rales or rhonchi, clear to auscultation Gastrointestinal: normoactive bowel sounds, distension (moderate), No tenderness , No guarding Skin: other (blanchable, discolored and ruborous L medial leg w/ some excoriations and papules) Neurologic: AAOx3, sensation intact bilaterally Psychiatric: interacting appropriately, not anxious, not encephalopathic, thought process linear ICD10 Worksheet Patient Problems: Problems Problem Status Onset MRSA (methicillin resistant Staphylococcus aureus) Acute ~06/09/17 Sepsis Acute Necrotizing fasciitis Acute Hypotension Acute Dizziness Acute Dyspnea Acute Cellulitis Acute Altered mental status Acute Alcohol intoxication Acute
[2017-06-20] MEDS ORDERED: DAPTOMYCIN IV SCH (15:00)
[2017-06-20] MEDS ORDERED: NS IV SCH (15:00)
[2017-06-20] MEDS: NS IV SCH (16:16)
[2017-06-20] MEDS: DAPTOMYCIN IV SCH (16:16)
--- NOTE | 2017-06-20 17:15 | PCMIDPN ---
Assessment/Plan: Assessment: MRSA septic shock and bacteremia secondary to probable right lower extremity cellulitis. Patient has no continuing evidence of lower extremity cellulitis. We will switch from vancomycin to daptomycin due to creatinine increase issues. Patient has a solitary kidney. Plan: 1. Start daptomycin monotherapy. Dose calculated by adjusted weight. 2. Follow clinical course. 06/20/17 17:45 Subjective: Patient is resting in his hospital room in his chair. He states his lower extremities feel much better. Notes that he is getting a diuretic that is causing him to urinate a significant amount today in his urinal. No fevers or chills. Objective: Daptomycin # 1 Vital Signs Temp Pulse Resp BP Pulse Ox 36.8 C 91 16 173/76 H 93 06/20/17 08:05 06/20/17 08:05 06/20/17 08:05 06/20/17 08:05 06/20/17 08:05 Microbiology 06/14/17 12:50 Blood Culture - Final Blood 06/14/17 12:50 Blood Culture - Final Blood Laboratory Results 06/20/17 04:40 06/20/17 04:40 06/19/17 06/20/17 06/21/17 05:59 05:59 05:59 Intake Total 2050 2240 Output Total 225 1900 1125 Balance 1825 340 -1125 - Physical Exam General Appearance: WD/WN, alert, obese, non-toxic Respiratory: lungs clear, normal breath sounds, No respiratory distress Cardiac/Chest: regular rate, rhythm, No tachycardia Extremities: non-tender, normal inspection, erythema (Mild erythema bilaterally secondary to rubrum.), No inflammation Skin: normal color, warm/dry, No rash Neuro/Psych: alert, normal mood/affect, oriented x 3 ICD10 Worksheet Patient Problems: Problems Problem Status Onset Alcohol intoxication Acute Altered mental status Acute Cellulitis Acute MRSA (methicillin resistant Staphylococcus aureus) Acute ~06/09/17 Dizziness Acute Dyspnea Acute Hypotension Acute Necrotizing fasciitis Acute Sepsis Acute
[2017-06-20] MEDS ORDERED: diphenhydrAMINE 25 MG CAP PO PRN (19:40)
[2017-06-20] MEDS: CALCIUM CARBONATE 500 MG CHEWABLE TAB PO PRN (19:52)
[2017-06-21] MEDS ORDERED: ZOLPIDEM TARTRATE 5 MG TAB PO PRN (00:24)
[2017-06-21] MEDS: ALBUMIN 25% 100 ML IV SCH (06:24)
[2017-06-21 06:44] LABS: % IMMATURE GRANULYOCYTES 0.4 % (0.0-1.1); ABSOLUTE IMMATURE GRANULOCYTES 0.02 10^3/uL (0.00-0.10); ADD DIFF? NO; ADD MORPH? NO; ADD SCAN? YES; ATYPICAL LYMPHOCYTE FLAG 80 (0-99); FRAGMENT RBC FLAG 0 (0-99); HEMOGLOBIN 8.9 g/dL (13.7-17.5); LEFT SHIFT FLG 0 (0-99); LIPEMIA HEMOLYSIS FLAG 90 (0-99); MEAN CELL HEMOGLOBIN 37.1 pg (27.9-34.1); MEAN CELL HEMOGLOBIN CONCENTR. 34.2 g/dL (32.4-36.7); MEAN CELL VOLUME 108.3 fL (81.5-99.8); MEAN PLATELET VOLUME 11.7 fL (8.7-11.7); PLATELET CLUMPS FLAG 0 (0-99); RED CELL DISTRIBUTION WIDTH 14.3 % (11.5-15.2)
[2017-06-21 06:46] LABS: PLATELET COUNT 39 10^3/uL (150-400)
[2017-06-21 06:57] LABS: ALANINE AMINOTRANSFERASE 48 IU/L (21-72); ALBUMIN 3.2 g/dL (3.5-5.0); ALKALINE PHOSPHATASE 83 IU/L (38-126); ANION GAP 14 mEq/L (8-16); ASPARTATE AMINOTRANSFERASE 64 IU/L (17-59); BILIRUBIN,TOTAL 4.1 mg/dL (0.1-1.4); CALCIUM 9.1 mg/dL (8.5-10.4); CARBON DIOXIDE 19 mEq/l (22-31); CHLORIDE 109 mEq/L (97-110); CREATININE 1.8 mg/dL (0.7-1.3); GLOMERULAR FILTRATION RATE 39; GLUCOSE 100 mg/dL (70-100); POTASSIUM 3.7 mEq/L (3.5-5.2); SODIUM 142 mEq/L (134-144); TOTAL PROTEIN 6.1 g/dL (6.3-8.2)
[2017-06-21 07:03] LABS: BILIRUBIN-CONJUGATED 1.6 mg/dL (0.0-0.5); BILIRUBIN-UNCONJUGATED 2.5 mg/dL (0.0-1.1)
[2017-06-21 07:19] LABS: SCAN POSITIVE
[2017-06-21 07:24] LABS: MACROCYTES 2+; PLATELET ESTIMATE DECREASED (ADEQ); TOXIC GRANULATION PRESENT
[2017-06-21] MEDS: FUROSEMIDE 40 MG TAB PO SCH ×2 (08:04→14:35)
[2017-06-21] MEDS: THIAMINE HCL 100 MG TAB PO SCH (08:04)
--- NOTE | 2017-06-21 10:14 | HOSPPROG ---
Hospitalist Progress Note Assessment/Plan: assessment: 61-year-old male presents with septic shock in the setting of MRSA bacteremia complicated by acute kidney injury Plan: # Septic Shock - POA, evidenced by SOFA score of 9 (also w/ MAP 48, lact 4.9, end-organ failure), meeting all sepsis-3/ICDS-3 criteria, resolved # Suspected ATN on CKD stage III - non-oliguric CORTNEY w/ hypotension and suspected ischemic ATN vs. vanco-toxicity in setting of single kidney s/p nephrectomy - excellent diuresis w/ albumin/lasix, d/w Dr. Mcdonald today and he agrees that we can stop albumin, continue PO lasix, and ensure that patient remains net negative on that dosing w/o significant rise in Cr prior to DC - Cr plateau at 2.1, downtrending # MRSA bacteremia - LE cellulitis source, PICC has been replaced - TTE negative for endocarditis - appreciate ongoing ID consult, cont on Dapto, neg Cx date 06/13 (14 days?) # Marked LE edema - added diuretic - elevate and AUDRA hose if able # Metabolic encephalopathy - patient has entirely cleared # Leg cellulitis - no evidence for nec fasc- edema is worse off diuretics however must hold 2/2 CORTNEY # Etoh withdrawal - resolved-cont thiamine # 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-complete Etoh cessation recommended # Morbid Obesity BMI 47 # IGACOMO - CPAP # ppx - high risk, pharm contraindicated given thrombocytopenia # diet - regular # code - full # dispo - ADD 06/22, pending stabilization of renal function off albumin Subjective: patient thirsty, cooperative Objective: Vital Signs Temp Pulse Resp BP Pulse Ox 36.8 C 88 16 147/62 H 92 06/21/17 08:17 06/21/17 08:17 06/21/17 08:17 06/21/17 08:46 06/21/17 08:17 Laboratory Results 06/21/17 06:15 06/21/17 06:15 06/20/17 06/21/17 06/22/17 05:59 05:59 05:59 Intake Total 2240 2289 50 Output Total 1900 5110 1275 Balance 340 -2821 -1225 PT 22.0 SEC (12.0-15.0) H 06/13/17 04:45 INR 1.91 (0.83-1.16) H 06/13/17 04:45 - Pending Discharge Pending Discharge Within 24 Hours: Yes Pending Discharge Date: 06/22/17 Pending Discharge Time: 11:00 - Physical Exam Constitutional: no apparent distress, not in pain, obese, No uncomfortable Cardiovascular: regular rate and rhythym, no murmur, rub, or gallop, edema (2+ bilat LE edema), No irregularly irregular, No tachycardia Respiratory: no respiratory distress, no rales or rhonchi, clear to auscultation Gastrointestinal: normoactive bowel sounds, distension (moderate), No tenderness , No guarding Skin: other (blanchable, hyperpigmented/discolored medial aspect LLE w/ some skin abrasions) Neurologic: AAOx3, No facial droop Psychiatric: interacting appropriately, not anxious, not encephalopathic, thought process linear ICD10 Worksheet Patient Problems: Problems Problem Status Onset MRSA (methicillin resistant Staphylococcus aureus) Acute ~06/09/17 Sepsis Acute Necrotizing fasciitis Acute Hypotension Acute Dizziness Acute Dyspnea Acute Cellulitis Acute Altered mental status Acute Alcohol intoxication Acute
[2017-06-21] MEDS: LACTULOSE 20 GM/30 ML UDCUP PO SCH ×3 (10:51→22:46)
--- NOTE | 2017-06-21 11:36 | PDIAF ---
- Diagnosis Diagnosis: Bacteremia/lower extremity cellulitis Code Status: Full Code - Medication Management Discharge Medications: Medications to Continue on Transfer Lisinopril/Hctz 20/12.5MG [Zestoretic/Prinzide 20/12.5MG (*)] 1 ea PO DAILY [Last Taken 06/08/17] Multivitamins [Multivitamin (*)] 1 each PO DAILY 07/16/16 [Last Taken 06/08/17] amLODIPine BESYLATE [Norvasc 5 mg (*)] 5 mg PO DAILY 07/16/16 [Last Taken ] Maintenance Team Leader Antibiotics: Daptomycin 700 mg IV daily Maintenance Team Leader Antibiotic Stop Date: 07/12/17 Discharge Medications: Refer to the Discharge Home Medication list for PRN reason. PICC Care - Routine: Yes - Labs/Radiology CBC Date: 06/25/17 (Fax results to [phone]) CMP Date: 06/25/17 (fax results to Dr. Abreu [phone]) - Follow Up Care Current Providers and Referrals: SCOTT PALACIO [Other] - As per Instructions Anthony Abreu MD [Medical Doctor] - (Patient has appointment with June 26 at 11:30 a.m. at the [facility] for Infect[facility])
--- NOTE | 2017-06-21 11:39 | PCMIDPN ---
Assessment/Plan: 1. MRSA bacteremia secondary to left lower extremity cellulitis: Patient will need 4 weeks of intravenous daptomycin after 1st negative blood culture; stop date July 12. TTE negative, cellulitis improving, although sluggish. Warned patient of adverse effects associated with daptomycin including myopathy and eosinophilic pneumonitis. PICC line replaced. Inter agency transfer form completed. Patient has an appointment with Dr. Abreu June 26 at 11:30 a.m. Hopefully the patient will be able to go home tomorrow. 2. Acute kidney injury: Appreciate Nephrology input. Stable. 06/21/17 11:37 Subjective: In good spirits. Anxious to go home. No muscle aches, nausea, vomiting, diarrhea, cough. Objective: Daptomycin 700 mg IV daily day 2. (antibiotics day 12) Afebrile Vital Signs Temp Pulse Resp BP Pulse Ox 36.8 C 88 16 147/62 H 92 06/21/17 08:17 06/21/17 08:17 06/21/17 08:17 06/21/17 08:46 06/21/17 08:17 Laboratory Results 06/21/17 06:15 06/21/17 06:15 06/20/17 06/21/17 06/22/17 05:59 05:59 05:59 Intake Total 2240 2289 50 Output Total 1900 5110 1275 Balance 976 -3843 -5594 Repeat blood cultures June 14 sterile - Physical Exam General Appearance: no apparent distress, obese EENT: pharynx normal Respiratory: lungs clear Extremities: other (Left lower extremity warm, with dusky erythema medially at the graft site, which is improved per the patient. No bullae.) ICD10 Worksheet Patient Problems: Problems Problem Status Onset Alcohol intoxication Acute Altered mental status Acute Cellulitis Acute MRSA (methicillin resistant Staphylococcus aureus) Acute ~06/09/17 Dizziness Acute Dyspnea Acute Hypotension Acute Necrotizing fasciitis Acute Sepsis Acute
--- NOTE | 2017-06-21 11:41 | PDIAF ---
- Diagnosis Diagnosis: Bacteremia/lower extremity cellulitis Code Status: Full Code - Medication Management Discharge Medications: Medications to Continue on Transfer Lisinopril/Hctz 20/12.5MG [Zestoretic/Prinzide 20/12.5MG (*)] 1 ea PO DAILY [Last Taken 06/08/17] Multivitamins [Multivitamin (*)] 1 each PO DAILY 07/16/16 [Last Taken 06/08/17] amLODIPine BESYLATE [Norvasc 5 mg (*)] 5 mg PO DAILY 07/16/16 [Last Taken ] Senior Quality Assurance Specialist Antibiotics: Daptomycin 700 mg IV daily Senior Quality Assurance Specialist Antibiotic Stop Date: 07/12/17 Discharge Medications: Refer to the Discharge Home Medication list for PRN reason. PICC Care - Routine: Yes - Labs/Radiology CBC Date: 06/25/17 (Fax results to [phone]) CMP Date: 06/25/17 (fax results to Dr. Abreu [phone]) CPK Date: 06/25/17 (Fax results to [phone]) - Follow Up Care Current Providers and Referrals: SCOTT PALACIO [Other] - As per Instructions Anthony Abreu MD [Medical Doctor] - (Patient has appointment with June 26 at 11:30 a.m. at the [facility] for Infect[facility] Diseases)
--- NOTE | 2017-06-21 11:45 | SOAPPROG ---
SOAP Progress Note Assessment/Plan: Assessment: 1. CORTNEY. Appears d/t ATN related to hypotension, possibly vanco, in setting of cellulitis , morbid obesity and cirrhosis. Creat improving, now 1.8. B/l 1.6. Excellent UOP now, appears to be having post ATN diuresis. Vanco changed to dapto. 2. Edema. Diuresing well. Continue current lasix dose for now + albumin to help mobilize fluid. 3. Cellulitis/MRSA bacteremia. Echo negative. Continue daptomycin, per ID. Plan: 06/21/17 11:42 06/21/17 11:45 06/21/17 11:46 Subjective: Reports massive amounts of UOP. No complaints. Objective: Vital Signs Temp Pulse Resp BP Pulse Ox 36.8 C 88 16 147/62 H 92 06/21/17 08:17 06/21/17 08:17 06/21/17 08:17 06/21/17 08:46 06/21/17 08:17 Laboratory Results 06/21/17 06:15 06/21/17 06:15 06/20/17 06/21/17 06/22/17 05:59 05:59 05:59 Intake Total 2240 2289 50 Output Total 1900 5110 1275 Balance 340 -2821 -1225 PT 22.0 SEC (12.0-15.0) H 06/13/17 04:45 INR 1.91 (0.83-1.16) H 06/13/17 04:45 Sitting at bedside, comfortable obese, wm RRR, no m/g/r CTAB Abdom obese, nt 4+ LE edema with induration, erythema of L calf ICD10 Worksheet Patient Problems: Problems Problem Status Onset MRSA (methicillin resistant Staphylococcus aureus) Acute ~06/09/17 Sepsis Acute Necrotizing fasciitis Acute Hypotension Acute Dizziness Acute Dyspnea Acute Cellulitis Acute Altered mental status Acute Alcohol intoxication Acute
[2017-06-21] MEDS: NS IV SCH (14:35)
[2017-06-21] MEDS: DAPTOMYCIN IV SCH (14:35)
[2017-06-22 05:02] LABS: % IMMATURE GRANULYOCYTES 0.5 % (0.0-1.1); ABSOLUTE IMMATURE GRANULOCYTES 0.03 10^3/uL (0.00-0.10); ADD DIFF? NO; ADD MORPH? NO; ADD SCAN? NO; ATYPICAL LYMPHOCYTE FLAG 0 (0-99); FRAGMENT RBC FLAG 0 (0-99); HEMATOCRIT 25.3 % (40.0-51.0); LEFT SHIFT FLG 10 (0-99); LIPEMIA HEMOLYSIS FLAG 90 (0-99); MEAN CELL HEMOGLOBIN CONCENTR. 35.6 g/dL (32.4-36.7); MEAN CELL VOLUME 106.8 fL (81.5-99.8); MEAN PLATELET VOLUME 11.6 fL (8.7-11.7); PLATELET CLUMPS FLAG 0 (0-99); RED BLOOD CELL COUNT 2.37 10^6/uL (4.40-6.38); RED CELL DISTRIBUTION WIDTH 14.6 % (11.5-15.2)
[2017-06-22 05:06] LABS: PLATELET COUNT 37 10^3/uL (150-400)
[2017-06-22 05:19] LABS: ALANINE AMINOTRANSFERASE 51 IU/L (21-72); ALBUMIN 3.2 g/dL (3.5-5.0); ALKALINE PHOSPHATASE 85 IU/L (38-126); ANION GAP 12 mEq/L (8-16); ASPARTATE AMINOTRANSFERASE 63 IU/L (17-59); BILIRUBIN,TOTAL 3.8 mg/dL (0.1-1.4); CALCIUM 8.9 mg/dL (8.5-10.4); CARBON DIOXIDE 21 mEq/l (22-31); CHLORIDE 108 mEq/L (97-110); CREATININE 1.7 mg/dL (0.7-1.3); GLOMERULAR FILTRATION RATE 41; GLUCOSE 94 mg/dL (70-100); POTASSIUM 3.5 mEq/L (3.5-5.2); SODIUM 141 mEq/L (134-144); TOTAL PROTEIN 6.1 g/dL (6.3-8.2)
[2017-06-22 05:40] LABS: BILIRUBIN-CONJUGATED 1.3 mg/dL (0.0-0.5); BILIRUBIN-UNCONJUGATED 2.5 mg/dL (0.0-1.1)
[2017-06-22 05:45] LABS: PLATELET ESTIMATE DECREASED (ADEQ)
[2017-06-22 07:36] VITALS: BP 152/76; PULSE 82; RESP 18; TEMP 98.4; O2SAT 92
[2017-06-22] MEDS ORDERED: CARVEDILOL 3.125 MG TAB PO SCH (08:34)
[2017-06-22] MEDS ORDERED: POTASSIUM CL 20 MEQ TAB PO SCH (09:00)
--- NOTE | 2017-06-22 09:21 | PDIAF ---
- Diagnosis Diagnosis: Bacteremia/lower extremity cellulitis, CORTNEY on CKD Stage III, cirrhosis Code Status: Full Code - Medication Management Discharge Medications: Medications to Continue on Transfer Multivitamins [Multivitamin (*)] 1 each PO DAILY 07/16/16 [Last Taken 06/08/17] amLODIPine BESYLATE [Norvasc 5 mg (*)] 5 mg PO DAILY 07/16/16 [Last Taken ] Carvedilol [Coreg (*)] 3.125 mg PO BIDMEAL #60 tab 06/22/17 [Last Taken Unknown] DAPTOmycin [Cubicin] 700 mg IV DAILY@1500 #18 dose 06/22/17 [Last Taken Unknown] Furosemide [Lasix 40 MG (*)] 40 mg PO BIDDIUR #60 tab 06/22/17 [Last Taken Unknown] Lactulose 10 gm PO BID #60 dose 06/22/17 [Last Taken Unknown] Potassium Chloride 10 meq PO DAILY #30 tab.prt.sr 06/22/17 [Last Taken Unknown] [facility] Antibiotics: Daptomycin 700 mg IV daily Deportation Officer Antibiotic Stop Date: 07/12/17 Discharge Medications: Refer to the Discharge Home Medication list for PRN reason. PICC Care - Routine: Yes - Orders Services needed: Home Care, Registered Nurse Home Care Face to Face: I certify that this patient was under my care and that I had the required [id number] encounter meeting the encounter requirements on the discharge day. My findings support the fact that the patient is homebound as defined in CMS Chapter 7 Medicare Benefits Manual 30.1.1, The condition of the patient is such that there exists a normal inability to leave home and consequently, leaving home would require a considerable and taxing effort. Oxygen: NA Diet Recommendation: cardiac -low fat low salt Weigh Patient: weekly Hinkle: Not applicable Wound Care Instructions: check LLE for development of wounds - Labs/Radiology CBC Date: 06/25/17 (Fax results to [phone]) CMP Date: 06/25/17 (fax results to Dr. Abreu [phone]) CPK Date: 06/25/17 (Fax results to [phone]) Call or Fax Lab and Imaging Results to: Dr. Montes - Follow Up Care Current Providers and Referrals: SCOTT PALACIO [Other] - As per Instructions Anthony Abreu MD [Medical Doctor] - (Patient has appointment with June 26 at 11:30 a.m. at the [facility] for [facility] Diseases) Shan Joseph MD [Medical Doctor] - follow up in 1 week
[2017-06-22] MEDS: THIAMINE HCL 100 MG TAB PO SCH (10:13)
[2017-06-22] MEDS: FUROSEMIDE 40 MG TAB PO SCH (10:13)
[2017-06-22] MEDS: LACTULOSE 20 GM/30 ML UDCUP PO SCH (10:15)
--- NOTE | 2017-06-22 11:08 | SOAPPROG ---
SOAP Progress Note Assessment/Plan: Assessment/Plan: CORTNEY on CKD 3: Cr down to 1.7, baseline around 1.6. Pt will need f/u with nephrology as outpatient, will arrange and left pt my card. Hypervolemia: pt with good diuresis on Lasix, to continue on discharge. Hypokalemia: pt getting KCl supplement while on Lasix. Subjective: No acute events overnight Pt planning to go home today. Objective: Vital Signs Temp Pulse Resp BP Pulse Ox 36.9 C 82 18 152/76 H 92 06/22/17 07:35 06/22/17 10:13 06/22/17 07:35 06/22/17 10:13 06/22/17 07:35 Microbiology 06/16/17 11:51 Blood Culture - Final Blood 06/16/17 10:55 Blood Culture - Final Blood Laboratory Results 06/22/17 04:40 06/22/17 04:40 06/21/17 06/22/17 06/23/17 05:59 05:59 05:59 Intake Total 2289 1150 Output Total 5110 5350 600 Balance -2821 -4200 -600 PT 22.0 SEC (12.0-15.0) H 06/13/17 04:45 INR 1.91 (0.83-1.16) H 06/13/17 04:45 General: alert and oriented, no acute distress Eyes; EOMI, PERRL OP: Clear CV: RRR Resp: nonlabored respirations on RA Abd; SOft, NT Ext: +3 edema BLE Neuro: CN II-XII Grossly intact, no asterixis Psych; cooperative, appropriate mood and affect ICD10 Worksheet Patient Problems: Problems Problem Status Onset Alcohol intoxication Acute Altered mental status Acute Cellulitis Acute MRSA (methicillin resistant Staphylococcus aureus) Acute ~06/09/17 Dizziness Acute Dyspnea Acute Hypotension Acute Necrotizing fasciitis Acute Sepsis Acute
--- NOTE | 2017-06-22 12:17 | PDDCSUM ---
Discharge Summary Discharge Summary: DISCHARGE SUMMARY FOLLOW-UP ITEMS: Follow-up creatinine BUN and lytes next week DATE OF ADMISSION: 06/09/2017 DATE OF DISCHARGE: 06/22/2017 DISCHARGE DIAGNOSES: 1. Septic shock present on admission 2. Suspected acute tubular necrosis 3. Chronic kidney disease stage 3 4. MRSA bacteremia 5. Left lower extremity cellulitis 6. Acute metabolic encephalopathy 7. Acute alcohol withdrawal 8. Chronic cirrhosis secondary to alcoholism and-SMITH 9. Morbid obesity with BMI 47 10. Chronic obstructive sleep apnea 11. Chronic hypertension CONSULTATIONS: Pulmonary Critical Care, Nephrology, Infectious Disease PROCEDURES / IMAGIN06/09/2017 PICC line insertion, 06/18/2017 PICC line reinsertion CHIEF COMPLAINT: Leg pain and lower extremity edema SUBJECTIVE: Patient is feeling well at time of discharge, pain in his legs is significantly improved, he is breathing well on room air PHYSICAL EXAM ON DISCHARGE: Systolic blood pressure is 140, heart rate 80, afebrile overnight, satting well on room air, net-4 .2 L overnight, lungs are clear to auscultation bilaterally, left lower extremity has hyperpigmentation, blanching bili, not appear to have overt erythema but does have some excoriations and areas of abrasion, bilateral 2+ lower extremity edema although improved from day prior LABS ON DISCHARGE: Potassium 3.5, creatinine 1.7, sodium 141, blood cell count 5700, hemoglobin 9, total bilirubin 3.8, AST 60, ALT 50, alk-phos 80 HOSPITAL COURSE BY PROBLEM: 1. Septic shock. Present on admission, evidenced by a sofa score of 9 meeting all sepsis-3 criteria, received IV fluids, pressors, and empiric IV antibiotics , resolved. 2. Suspected acute tubular necrosis. Patient experienced nonoliguric acute kidney injury in the setting of hypotension and single kidney status post nephrectomy. There may also have been a component of vancomycin toxicity. His serum creatinine plateaued around 2.1 and renal perfusion was increased with supplemental albumin. Nephrology was consulted and after holding the patient's home dosages of JANELL-inhibitor, Aldactone, hydrochlorothiazide, we did agree initiating his Lasix while concomitantly using albumin in order to perfuse his kidneys and diuresis given his total body hypovolemia. This strategy was successful in patient's serum creatinine level has been down trending. He has also been mobilizing a significant amount of fluid. He will be discharged off of his JANELL inhibitor, Aldactone, hydrochlorothiazide, and he has been initiated on 40 mg of Lasix twice daily as well as a low-dose potassium supplement. He will follow up with [facility]. He will have repeat creatinine BUN and lytes checked next week. 3. Chronic kidney disease stage 3. Patient's baseline creatinine is around 1.6 and as mentioned above, he will follow up with [facility]. 4. Chronic hypertension. Patient was continued on his home dosage of amlodipine and carvedilol 3.125 mg twice daily was initiated in lieu of his lisinopril/hydrochlorothiazide which she had been previously taking. 5. MRSA bacteremia. Lower extremity cellulitis is source resulted in septic shock as mentioned above, trans thoracic echocardiogram demonstrated no evidence of endocarditis, his blood cultures cleared without issue. Per Infectious Disease, the patient will require 4 weeks of IV antibiotics from his negative culture date. Daptomycin was selected given possible vancomycin toxicity. He has an outpatient follow-up appointment in the Infectious Disease Clinic. 6. Lower extremity cellulitis. No evidence of necrotizing fasciitis on exam, he most likely has cellulitis in the setting of uncontrolled lower extremity edema with resultant skin breakdown. The edematous area is being managed with Lasix. 7. Acute metabolic encephalopathy. Evidenced by global brain dysfunction characterized as confusion, lethargy and disorientation, all of which is an acute change from his baseline and was secondary to acute kidney injury as well as the toxic effects of infection. His cognitive abilities have returned to his baseline discharge. 8. Acute alcohol withdrawal. This was treated per [facility] protocol, and has resolved. He recommended complete cessation. 9. Chronic cirrhosis. Liver disease secondary to alcoholism as well as nonalcoholic steatohepatitis. He has resultant anemia and thrombocytopenia. The patient should be on scheduled lactulose to prevent hepatic encephalopathy. He should also be referred to outpatient interior design professor from his primary care provider. As mentioned above, his hypertensive regimen has been adjusted to include a beta-kostas to reduce likelihood of variceal development. DISCHARGE MEDICATIONS: Please see official discharge medication reconciliation sheet in chart , carvedilol 3.125 mg twice daily, daptomycin daily through 07/12/2017, lactulose twice daily, Lasix 40 mg twice daily, potassium 10 mEq daily, discontinuation of lisinopril/hydrochlorothiazide DISCHARGE INSTRUCTIONS: Please follow up with Infectious Disease, [facility], arrange outpatient hepatology follow-up. TIME SPENT: Greater than 30 minutes were spent on direct patient care, as well as discharge planning and preparation.
[2017-06-22] MEDS ORDERED: POTASSIUM CL 20 MEQ/15 ML UDCUP PO ONE (15:00)
== END 2017-06-22 12:34 | disposition home health service (06) | DRG 871 ==
LOC: EEVIPCON 08:39 → F2N 10:24 → F3E 06-20 07:47
PROVIDERS: ADMIT Student in an Organized Health Care Education/Training Program; ATTEND Student in an Organized Health Care Education/Training Program
PROC: 02HV33Z Insertion of Infusion Device into Superior Vena Cava, Percutaneous Approach (ICD-10-PCS; 2017-06-09)
PROC: 30233R1 Transfusion of Nonautologous Platelets into Peripheral Vein, Percutaneous Approach (ICD-10-PCS; 2017-06-11)
PROC: 02HV33Z Insertion of Infusion Device into Superior Vena Cava, Percutaneous Approach (ICD-10-PCS; principal; 2017-06-18)
DX: A41.02 Sepsis due to Methicillin resistant Staphylococcus aureus (principal); N17.0 Acute kidney failure with tubular necrosis; G93.40 Encephalopathy, unspecified; R65.21 Severe sepsis with septic shock; L03.116 Cellulitis of left lower limb; F10.239 Alcohol dependence with withdrawal, unspecified; I12.9 Hypertensive chronic kidney disease with stage 1 through stage 4 chronic kidney disease, or unspecified chronic kidney disease; Z68.42 Body mass index [BMI] 45.0-49.9, adult; N18.3 Chronic kidney disease, stage 3 (moderate); K70.30 Alcoholic cirrhosis of liver without ascites; E66.01 Morbid (severe) obesity due to excess calories; G47.33 Obstructive sleep apnea (adult) (pediatric); Z90.5 Acquired absence of kidney; Z86.711 Personal history of pulmonary embolism; Z85.528 Personal history of other malignant neoplasm of kidney
CPT/HCPCS: 82947-QW; 96365; 97116-GP; 97163-GP; 97166-GO; 97530-GO; 97530-GP; 97535-GO; C1751; G0472; G0480; J0610; J0878; J1815; J1940; J2060; J2543; J2997; J3370; J3411; P9035; P9047

== ENCOUNTER 2017-06-25 05:42 | Inpatient (IN) | payer OTHER ==
--- NOTE | 2017-06-25 05:50 | EDPHY ---
H & P Source: Patient - Personal History Tetanus Vaccine Date: < 10 years - Medical/Surgical History Hx Asthma: No Hx Chronic Respiratory Disease: No Hx Diabetes: No Hx Cardiac Disease: No Hx Renal Disease: Yes Hx Cirrhosis: No Hx Alcoholism: No Hx HIV/AIDS: No Hx Splenectomy or Spleen Trauma: No Other PMH: PE, obesity,bacterial infection left lower leg, resolving/KIDNEY CANCER ONLY HAS ONE KIDNEY - Social History Smoking Status: Never smoked HPI/ROS: HPI CHIEF COMPLAINT: Fever, worsening leg pain and swelling HISTORY OF PRESENT ILLNESS: Patient presents to the emergency room stating that he developed a fever to 102 last night, this spike to 104 overnight. He also tells me that his left leg is more red and more painful normal more swollen than normal. He is also concerned that he may have a blood clot in his left leg. Denies any chest pain vomiting abdominal pain or significant shortness of breath. Now he feels unwell. Generalized weakness. Past Medical History: Recent hospitalization from June 09 to June 22 for septic shock MRSA bacteremia from left low lower extremity cellulitis, alcohol use, alcohol draw, AFib, chronic kidney disease stage 3, currently getting daptomycin PICC line Past Surgical History: No recent surgery Social History: Denies tobacco use or illicit drugs. Family History: Noncontributory ROS REVIEW OF SYSTEMS: A comprehensive 10 point review of systems is otherwise negative aside from elements mentioned in the history of present illness. Exam Constitutional triage nursing summary reviewed, vital signs reviewed, awake/ alert. (HTN AND FEVER) Eyes normal conjunctivae and sclera, EOMI, PERRLA. HENT normal inspection, atraumatic, moist mucus membranes, no epistaxis, neck supple/ no meningismus, no raccoon eyes. Respiratory clear to auscultation bilaterally, normal breath sounds, no respiratory distress, no wheezing. Cardiovascular rate normal, regular rhythm, no murmur, no edema, distal pulses normal. Gastrointestinal soft, non-tender, no rebound, no guarding, normal bowel sounds, no distension, no pulsatile mass. Genitourinary no CVA tenderness. Musculoskeletal bilateral lower extremity edema and swelling worse on the left than right, left leg is erythematous up to the knee, edematous, warm to touch, there is no crepitus or gas palpated, otherwise neurovascular intact. Tender palpation posterior calf. left arm Picc line/no pus. Skin pink, warm, & dry, no rash, skin atraumatic. Neurologic awake, alert and oriented x 3, AAOx3, moves all 4 extremities equally, motor intact, sensory intact, CN II-XII intact, normal cerebellar, normal vision, normal speech. Psychiatric normal mood/affect. Heme/Lymph/Immune no lymphadenopathy. Differential Diagnosis: Includes but is not limited to in a particular order, severe sepsis, bacteremia, MRSA, cellulitis Medical Decision Making: Plan for this patient IV fluids fluid resuscitation, blood cultures, fever control Tylenol, he has been receiving IV daptomycin earlier. Will broaden his coverage out to IV Zosyn patient need to be admitted to the hospitalist service. Reason for admission fever sepsis. Source of infection is most likely bacteremia from ongoing left lower extremity cellulitis. Re-evaluation: 0635AM: Patient signed over to Dr. Meza at7 AM shift-change, follow up us/dvt. Patient this time is hemodynamically stable. Not hypotensive. 0647AM: Patient's blood work reviewed. Leukocytosis present. Lactic acid less than 2. Will consult Infectious Disease let them know this patient is coming back to the hospital. Blood cultures have been pending. Chest x-ray order, urinalysis ordered. Most likely cause of fever he has left lower extremity cellulitis causing most likely bacteremia sepsis. He does not have severe sepsis or septic shock at this time. 0653AM Spoke with Dr. Grijalva she agrees with IV Zosyn at this time. They will be glad to see the patient they understand the patient be admitted to the hospitalist service. 0700AM: Patient admitted for sepsis, Most likely LLE Cellulitis leading to Bacteremia. On IV dapto, IV Zosyn. (Thang Cervantes) Constitutional: Initial Vital Signs Temperature (C) 39.4 C H 06/25/17 05:44 Heart Rate 88 06/25/17 05:44 Respiratory Rate 18 06/25/17 05:44 Blood Pressure 177/68 H 06/25/17 05:44 O2 Sat (%) 92 06/25/17 05:44 O2 Delivery Mode Room Air Allergies/Adverse Reactions: No Known Allergies Allergy (Verified 06/25/17 05:50) Home Medications: Medication Instructions Recorded Multivitamins [Multivitamin (*)] 1 each PO DAILY 07/16/16 amLODIPine BESYLATE [Norvasc 5 mg 5 mg PO DAILY 07/16/16 (*)] Carvedilol [Coreg (*)] 3.125 mg PO BIDMEAL #60 tab 06/22/17 Potassium Chloride 10 meq PO DAILY #30 tab.prt.sr 06/22/17 DAPTOmycin [Cubicin 500mg vial (*)] 700 mg IV DAILY@17 06/25/17 Furosemide [Lasix 40 MG (*)] 40 mg PO BID 06/25/17 Lactulose 10 gm PO BID 06/25/17 Lisinopril/Hctz 20/12.5MG 1 ea PO DAILY 06/25/17 [Zestoretic/Prinzide 20/12.5MG (*)] Medical Decision Making - Diagnostics Imaging Results: Imaging Impressions Extremity Venous Study 06/25/17 06:03 Impression: No evidence of deep vein thrombosis in the left lower extremity. There is calf edema. Consider CT venography to exclude pelvic venous thrombosis as well and as an occult pelvic mass compressing the left pelvic venous outflow. Results called and discussed with Dr. Talavera,at 06/25/2017 8:11 Chest X-Ray 06/25/17 06:29 Impression: No evidence for pneumonia. Left arm PICC line in good position. Left lower extremity venous ultrasound study. No evidence of DVT in the left lower extremity. This study was also negative on June 09. Please see above. Results were discussed with staff radiologist Dr. Cortez Camarillo. ( Indira Talavera) ED Course/Re-evaluation: I took over care of this patient at 7:00 a.m.. We are waiting the results of a left lower extremity ultrasound. The patient is admitted to the hospitalist service under Dr. Rigoberto Friedman for a cellulitis of left lower extremity. He has also had a fever. He has been given a g of Tylenol. His 1st venous lactate is less than 2. He is currently getting a [address] Grijalva of infectious disease has consulted. The patient is also receiving IV Zosyn in the emergency department. He has been on daptomycin. 8:20 a.m., the patient has remained stable through my emergency department course with him. He was taken up stairs the floor just a short while ago. I discussed the results of his ultrasound with the admitting hospitalist Dr. Dr. Bishop, discussed consideration of CT angiogram of the pelvis to evaluate for a mass or pelvic outflow obstruction. Hospitalist will evaluate and consider. Patient was admitted to the hospitalist in stable condition. (Indira Talavera) - Data Points Laboratory Results: Laboratory Results 06/25/17 06:20 06/25/17 06:20 Microbiology Results: MICROBIOLOGY 06/25/17 06:20 Blood Blood Culture - Preliminary Gram Neg [place] [facility] 06/25/17 06:20 Blood Blood Panel (PCR) - Final Klebsiella Pneumoniae Medications Given: Discontinued Medications Acetaminophen (Tylenol) 1,000 mg PO EDNOW ONE Stop: 06/25/17 06:05 Last Admin: 06/25/17 06:29 Dose: 1,000 mg Amlodipine Besylate (Norvasc) 5 mg PO DAILY GIDEON Stop: 12/22/17 11:44 Last Admin: 06/26/17 09:19 Dose: 5 mg Enoxaparin Sodium (Lovenox) 30 mg SC DAILY GIDEON Stop: 12/22/17 08:59 Last Admin: 06/26/17 10:09 Dose: Not Given Furosemide (Lasix) 40 mg PO BIDDIUR GIDEON Stop: 12/22/17 14:59 Last Admin: 06/26/17 11:50 Dose: Not Given Furosemide (Lasix Injection) 40 mg IVP ONCE ONE Stop: 06/26/17 11:24 Last Admin: 06/26/17 12:15 Dose: 40 mg Lisinopril/HCTZ (Zestoretic) 1 ea PO DAILY GIDEON Stop: 12/22/17 11:44 Last Admin: 06/26/17 10:08 Dose: Not Given Sodium Chloride (Ns) 1,000 mls @ 0 mls/hr IV EDNOW ONE; Wide Open PRN Reason: Protocol Stop: 06/25/17 05:54 Last Admin: 06/25/17 06:29 Dose: 1,000 mls Sodium Chloride (Ns) 1,000 mls @ 0 mls/hr IV ONCE ONE PRN Reason: Wide Open Stop: 06/25/17 06:25 Last Admin: 06/25/17 07:54 Dose: 1,000 mls Piperacillin/Tazobactam/Dextrose (Zosyn (Premix)) 100 mls @ 200 mls/hr IV EDNOW ONE PRN Reason: Protocol Stop: 06/25/17 07:06 Last Admin: 06/25/17 07:54 Dose: 100 mls Clindamycin Phosphate/Dextrose (Cleocin 900 Mg (Premix)) 50 mls @ 100 mls/hr IV ONCE ONE PRN Reason: Protocol Stop: 06/25/17 08:38 Last Admin: 06/25/17 09:25 Dose: 50 mls Sodium Chloride (Ns) 1,000 mls @ 200 mls/hr IV CONT GIDEON Stop: 12/22/17 08:14 Last Admin: 06/26/17 06:19 Dose: 1,000 mls Clindamycin Phosphate/Dextrose (Cleocin 600 Mg (Premix)) 50 mls @ 100 mls/hr IV Q8HRS GIDEON PRN Reason: Protocol Stop: 07/25/17 13:59 Last Admin: 06/25/17 15:00 Dose: 50 mls Clindamycin Phosphate/Dextrose (Cleocin 900 Mg (Premix)) 50 mls @ 100 mls/hr IV ONCE ONE PRN Reason: Protocol Stop: 06/25/17 09:59 Last Admin: 06/25/17 11:02 Dose: Not Given Ibuprofen (Motrin) 600 mg PO EDNOW ONE Stop: 06/25/17 05:55 Last Admin: 06/25/17 09:17 Dose: Not Given Lactulose (Cephulac) 10 gm PO BID [facility] Stop: 12/22/17 20:59 Last Admin: 06/26/17 10:09 Dose: Not Given Morphine Sulfate (Morphine) 6 mg IVP EDNOW ONE Stop: 06/25/17 06:05 Last Admin: 06/25/17 06:28 Dose: 6 mg Departure - Departure Disposition: [facility] Acute Clinical Impression: Bacteremia Cellulitis Qualifiers: Site of cellulitis: extremity Site of cellulitis of extremity: lower extremity Laterality: left Qualified Code(s): L03.116 - Cellulitis of left lower limb Fever Qualifiers: Fever type: unspecified Qualified Code(s): R50.9 - Fever, unspecified Sepsis Qualifiers: Sepsis type: sepsis due to unspecified organism Qualified Code(s): A41.9 - Sepsis, unspecified organism Condition: Fair
[2017-06-25] MEDS ORDERED: NS 1,000 ML IV ONE ×2 (05:53→06:24)
[2017-06-25] MEDS ORDERED: IBUPROFEN 600 MG TAB PO ONE (05:54)
[2017-06-25] MEDS ORDERED: ACETAMINOPHEN 500 MG TAB PO ONE (06:04)
[2017-06-25 06:36] LABS: % IMMATURE GRANULYOCYTES 0.9 % (0.0-1.1); ABSOLUTE IMMATURE GRANULOCYTES 0.13 10^3/uL (0.00-0.10); ADD DIFF? NO; ADD MORPH? NO; ADD SCAN? NO; ATYPICAL LYMPHOCYTE FLAG 0 (0-99); FRAGMENT RBC FLAG 0 (0-99); HEMATOCRIT 29.4 % (40.0-51.0); HEMOGLOBIN 10.3 g/dL (13.7-17.5); LEFT SHIFT FLG 0 (0-99); LIPEMIA HEMOLYSIS FLAG 90 (0-99); MEAN CELL HEMOGLOBIN 37.3 pg (27.9-34.1); MEAN CELL VOLUME 106.5 fL (81.5-99.8); MEAN PLATELET VOLUME 11.9 fL (8.7-11.7); PLATELET CLUMPS FLAG 0 (0-99); PLATELET COUNT 70 10^3/uL (150-400); RED BLOOD CELL COUNT 2.76 10^6/uL (4.40-6.38); RED CELL DISTRIBUTION WIDTH 14.4 % (11.5-15.2)
[2017-06-25] MEDS ORDERED: PIPERACILLIN/TAZO 4.5 GM/DEX 100 ML IV ONE (06:37)
[2017-06-25 06:49] LABS: ALANINE AMINOTRANSFERASE 46 IU/L (21-72); ALKALINE PHOSPHATASE 95 IU/L (38-126); ANION GAP 13 mEq/L (8-16); ASPARTATE AMINOTRANSFERASE 63 IU/L (17-59); BILIRUBIN,TOTAL 4.6 mg/dL (0.1-1.4); BILIRUBIN-CONJUGATED 1.6 mg/dL (0.0-0.5); CALCIUM 8.3 mg/dL (8.5-10.4); CARBON DIOXIDE 17 mEq/l (22-31); CHLORIDE 104 mEq/L (97-110); CREATININE 1.9 mg/dL (0.7-1.3); GLOMERULAR FILTRATION RATE 36; GLUCOSE 121 mg/dL (70-100); SODIUM 134 mEq/L (134-144); TOTAL PROTEIN 6.4 g/dL (6.3-8.2)
[2017-06-25 07:10] LABS: PROCALCITONIN 1.64 ng/mL (0.02-0.10)
[2017-06-25 07:28] LABS: INR 2.42 (0.83-1.16); PROTIME(PATIENT) 26.6 SEC (12.0-15.0)
[2017-06-25 07:29] LABS: APTT 41.8 SEC (23.0-38.0)
[2017-06-25] MEDS ORDERED: CLINDAMYCIN 900 MG/DEXTROSE 50 ML IV ONE ×2 (08:09→09:30)
[2017-06-25] MEDS ORDERED: ACETAMINOPHEN 325 MG TAB PO PRN (08:12)
[2017-06-25] MEDS ORDERED: ONDANSETRON 4 MG/2 ML VIAL IVP PRN (08:12)
[2017-06-25] MEDS ORDERED: ONDANSETRON DISINTEGRATING 4 MG TAB PO PRN (08:12)
--- NOTE | 2017-06-25 09:16 | PCMIDPN ---
Assessment/Plan: Assessment/Plan: 1. Fever, leukcytosis with recurrent LLE cellulitis: r/o deep space infection/ abscess/necrotizing fascitis - s/p one dose of zosyn, clinda in ER. - Will continue Zosyn, clinda and dapto for now until further info revealed from MRI. Reviewed with pharmacy regarding dosing. - Await MRI to further direct plan of care, additional work up etc. - CXR reviewed, no pneumonia, pneumonitis and patient without respiratory symptoms at present. -Not having diarrhea. no acute swelling with respect to picc line (old or new sites) - Plan of care discussed with patient and at bedside - Care coorinated with Dr. Friedman, pharmacy, and Rn Subjective: Asked to see patient as patient readmitted today due to high fevers to 104 degrees F. He went home on Saturday and was feeling well. He was walking around the house, watering the plants outside etc. He has denied any loose stools, diarrhea, or abdominal pain. He denies feeling short of breath, restrictive breathing or pain on deep inspiration. He denies pain involving either of his upper extremities where old and new picc line were/are respectively. He denies dysuria,hematuria. He does , however, state that his left leg started hurting more yesterday afternoon, particularly behind in the calf region. He also had noticed more redness on the lateral aspect of the left upper leg as well. The pain has increased so much since that time that he is unable to walk wihtout a cane. He also feels there is new redness as well. He did start to have some chills yesterday as well. He denies back pain, hip pain or any other joints hurting. He reports no other red areas or rashes. Denies sorethroat or headache. no other complaints. He recieved Dapto last few days while in the hospital and has tolerated it well. His last dose of Daptomycin was yesterday evening at 5pm. He underwent USG and CXR in ER , both unremarkable to explain fevers. He received dose of Zosyn and Clinda in ER. Objective: Vital Signs Temp Pulse Resp BP Pulse Ox 37.7 C 78 20 131/61 H 91 L 06/25/17 08:21 06/25/17 08:40 06/25/17 08:40 06/25/17 08:40 06/25/17 08:40 06/24/17 06/25/17 06/26/17 05:59 05:59 05:59 Intake Total 2099 Balance 2099 - Physical Exam General Appearance: alert, no apparent distress Respiratory: lungs clear Cardiac/Chest: regular rate, rhythm, systolic murmur Extremities: swelling (see below) Abdomen: normal bowel sounds, non-tender, soft, other (obese), No distended Skin: erythema (LLE: more redness compared to my exam last week. Also new blotchy erythema espeically on left upper lateral leg. CAlf area tender. Exam is difficult given extensive scarring from previous necrotizing infection requiring debridement. WArmth appreciated. Right LE: no acute erythema as such noted. also has some chronic skin changes in the lower leg with scaling. Underlying venous stasis dermatitis noted on both lower extremities Left greater than right. Upper extremities wihtout acute swelling. Picc line noted in LUE. nontender. ) ICD10 Worksheet Patient Problems: Problems Problem Status Onset Cellulitis Acute Fever Acute Sepsis Acute Alcohol intoxication Acute Altered mental status Acute Cellulitis Acute Dizziness Acute Dyspnea Acute Hypotension Acute MRSA (methicillin resistant Staphylococcus aureus) Acute ~06/09/17 Necrotizing fasciitis Acute Sepsis Acute
--- NOTE | 2017-06-25 09:17 | GHP ---
[f rep st] HISTORY AND PHYSICAL DATE OF ADMISSION: 06/25/2017 HISTORY OF PRESENT ILLNESS: The patient is a pleasant 61-year-old gentleman with a history of recen t MRSA bacteremia secondary to left lower extremity cellulitis, who presents with fever and worsenin g pain in the area of his cellulitis. This is complicated by an abnormal anatomy from a necrotizing fasciitis surgery there in 2013. He had a hospital stay from the through the , where he had 6 sets of MRSA positive blood cul tures that ultimately cleared on the . He is on daptomycin. He came in with sepsis and acute k idney injury, all of which resolved. He does have 1 kidney from a nephrectomy for a remote renal ce ll carcinoma about 6-1/2 years ago. He was doing well at home. He notes that between about midnight, between the and , and morning, he noted increased pain with ambulation, as he is taking diuretics. He was afebrile when the nurses checked him early in the day on the , but developed a fever to as high as 102, and u ltimately sought care. He has not had urgency, frequency, dysuria, cough, shortness of breath, abdo zurdo pain. His notes that an area in the transition from the calf muscle to where the Dubois s tendon is, he has an increased amount of swelling. When I see the patient, he is able to flex and extend both his knee and his ankle without pain in the joint, but with flexion and extension of the knee, he does have significant pain in the distal calf. There is possibly some new erythema on his lateral left leg. The patient has not had alcohol since discharge. REVIEW OF SYSTEMS: Complete 10-point review of systems conducted and negative, except as noted in t he HPI. PAST MEDICAL HISTORY: 1. MRSA bacteremia secondary to left lower extremity cellulitis. 2. Left lower extremity cellulitis. 3. In 2013, necrotizing fasciitis. 4. Hypertension. 5. Pulmonary embolism in 2006. 6. Morbid obesity. 7. Renal cell carcinoma, status post nephrectomy. 8. Obstructive sleep apnea. 9. Possibly heavy alcohol use. MEDICATIONS: Amlodipine, carvedilol, daptomycin, furosemide, lactulose, multivitamin, potassium chl oride. SOCIAL HISTORY: He works at [employer]. Lives in [place]. Alcohol as in the HPI. No tobacco . FAMILY HISTORY: Reviewed and unremarkable. PHYSICAL EXAM: VITAL SIGNS: Blood pressure 177/68, pulse 88, breathing 18 times a minute, 98% on r oom air, temperature 39.4. GENERAL: In no acute distress. Sclerae anicteric. Oropharynx clear. Mucous membranes are moist. NECK: Supple without lymphadenopathy or JVD. LUNGS: Clear to auscult ation bilaterally. HEART: S1, S2. ABDOMEN: Soft, nontender, nondistended. EXTREMITIES: Lower e xtremities, left lower extremity shows evidence of previous necrotizing fasciitis scar. This was ex amined. There is an amount of erythema. There is increased pain and warmth. He is able to move hi s joints as I mentioned. There is possible increased swelling. It is at the transition of his calf to Achilles tendon. NEUROLOGIC: Nonfocal. SKIN: Reveals the aforementioned left lower extremity , there is some erythema on the dorsum of his right foot. LABS: White count 14.3, with a left shift; hematocrit 29.4, which is about his baseline; platelets are 70, which is about his baseline. INR is 2.4. Arterial lactate is 1.4. Sodium 134, potassium 4 .0, chloride 104, bicarb 17, which is about his baseline, BUN 31, creatinine 1.9, glucose 121. Tota l bilirubin 4.6, AST elevated at 63. Ammonia is 29. Procalcitonin is elevated 1.6. Chest x-ray, i nterpreted by me, shows no acute cardiopulmonary disease. DVT study shows no DVT in the left lower extremity, calf edema, consider CT venography. Chest x-ray, as mentioned. I discussed the case with Drs. Rolando Benavides and Thang Cervantes, and Dr. Anthony Abreu. ASSESSMENT/PLAN: This is a 61-year-old gentleman with recent Staphylococcus bacteremia, who present s with left lower extremity cellulitis, leukocytosis, and concerning exam for abscess versus necroti zing fasciitis. 1. Question necrotizing fasciitis. I have a low suspicion. MRI is ordered. I have discussed this with Dr. Benavides who has probably see the patient already. I have given him a dose of clindamyc in. He received Zosyn in the emergency department already. ID will tailor his antibiotics. Blood cultures have been drawn. 2. Extending cellulitis is concerning for failed therapy, possible deep space infection as above. MRI imaging. A CT with contrast cannot be obtained given his 1 kidney. 3. Chronic kidney disease. Creatinine is baseline. 4. Sepsis. The patient has infection without evidence of sepsis so at this time, we will follow. 5. Thrombocytopenia. We will follow. 6. Elevated INR. Will check fibrinogen. 7. Prophylaxis. Pharmacologic prophylaxis indicated. Start low-molecular heparin. 8. Disposition: Inpatient status risk is high. /[id number]/MODL
[2017-06-25] MEDS ORDERED: CLINDAMYCIN 600 MG/DEXTROSE 50 ML IV SCH ×3 (09:28→14:00)
[2017-06-25] MEDS: NS 1,000 ML IV SCH ×2 (09:35→22:54)
[2017-06-25] MEDS: ENOXAPARIN 30 MG/0.3 ML SYR SC SCH (09:37)
[2017-06-25] MEDS: LISINOPRIL/HCTZ 20/12.5MG 1 EA TAB PO SCH (12:06)
[2017-06-25] MEDS: amLODIPine BESYLATE 5 MG TAB PO SCH (12:07)
[2017-06-25] MEDS ORDERED: GADOBUTROL 10 ML VIAL IVP ONE (12:28)
[2017-06-25] MEDS: PIPERACILLIN/TAZO 3.375 GM/DEX 50 ML IV SCH ×3 (14:05→22:54)
[2017-06-25 14:28] LABS: COLOR YELLOW; LEUKOCYTE ESTERASE,URINE NEGATIVE (NEGATIVE); NITRITE,URINE NEGATIVE (NEGATIVE)
[2017-06-25 14:33] LABS: MUCUS TRACE /lpf (NONE-1+)
[2017-06-25] MEDS: FUROSEMIDE 40 MG TAB PO SCH (14:58)
[2017-06-25] MEDS: DAPTOMYCIN IV SCH (16:50)
[2017-06-25] MEDS: NS IV SCH (16:50)
[2017-06-25] MEDS: CARVEDILOL 3.125 MG TAB PO SCH (18:29)
--- NOTE | 2017-06-25 18:48 | HOSPPROG ---
Hospitalist Progress Note Assessment/Plan: Pt has gram negative rods in blood cultures MRI shows extensive edema but no specific signs of nec fasc or abscess. He does not have hgih fevers since in the ER this am. BP and pulse stable I did review with Dr Abreu. Will continue antibiotics, review with surgery. Objective: Vital Signs Temp Pulse Resp BP Pulse Ox 37.8 C 74 16 152/76 H 90 L 06/25/17 16:16 06/25/17 18:29 06/25/17 16:16 06/25/17 18:29 06/25/17 16:16 06/24/17 06/25/17 06/26/17 06:59 06:59 06:59 Intake Total 3400 Output Total 500 Balance 2900 PT 26.6 SEC (12.0-15.0) H 06/25/17 06:20 INR 2.42 (0.83-1.16) H 06/25/17 06:20 ICD10 Worksheet Patient Problems: Problems Problem Status Onset Cellulitis Acute Fever Acute Sepsis Acute Alcohol intoxication Acute Altered mental status Acute Cellulitis Acute Dizziness Acute Dyspnea Acute Hypotension Acute MRSA (methicillin resistant Staphylococcus aureus) Acute ~06/09/17 Necrotizing fasciitis Acute Sepsis Acute
[2017-06-25] MEDS: HYDROCODONE/APAP 5/325 TAB PO PRN (19:50)
[2017-06-25] MEDS: LACTULOSE 20 GM/30 ML UDCUP PO SCH (19:52)
[2017-06-25] MEDS: ZOLPIDEM TARTRATE 5 MG TAB PO PRN (20:51)
[2017-06-25] MEDS ORDERED: LACTULOSE 10 GM PO SCH (21:00)
[2017-06-25] MEDS ORDERED: FUROSEMIDE 40 MG TAB PO SCH (21:00)
--- NOTE | 2017-06-26 01:00 | GCON ---
[f rep st] CONSULTATION DATE OF CONSULTATION: 06/25/2017 REFERRING PHYSICIAN: Alan Friedman MD HISTORY OF PRESENT ILLNESS: The patient is a 61-year-old man well known to me. I debrided his leg and performed split-thickness skin graft in 2013. He presented to the hospital on June 09 due to c onfusion and pain in his left leg. At that time, he responded very well to antibiotics and there wa s no evidence of DVT. He was discharged home and was getting daptomycin. Yesterday, he reported you ving more pain and then spiked a temperature of 104, presented to the ER. His leg is much more swol germain and tender. He reports today he feels there is a ball at his posterior calf that is exquisitely tender. He had an MRI that showed cellulitis versus lymphedema. He had an ultrasound that was neg ative for DVT. He is bacteremic. PAST MEDICAL HISTORY: Hypertension, history of PE in 2006, morbid obesity, history of cellulitis, r enal cell carcinoma status post nephrectomy, obstructive sleep apnea. PAST SURGICAL HISTORY: Knee arthroscopy, nephrectomy, tonsillectomy, debridement and split-thicknes s skin graft. ALLERGIES: No known drug allergies. 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 Previously used tobacco. He is . FAMILY HISTORY: Significant for breast cancer in his mother. REVIEW OF SYSTEMS: Significant for fevers and chills, and leg pain. Otherwise, 10-point Review of Systems negative. PHYSICAL EXAMINATION: VITAL SIGNS: 37.4, 69, 102/59, 16, 91% on room air. GENERAL: Pleasant, mor bidly obese man, lying in bed. HEENT: Normocephalic. No gross hearing deficits. Mucous membranes moist. Pupils equal and round. No scleral icterus. LUNGS: No increased work of breathing. CARD IAC: Regular rate. ABDOMEN: Deferred. EXTREMITIES: Both of his lower extremities are more edema tous than previously. His left lower extremity appears cellulitic and is tender. There is an area on the posterior calf that is more tender but it is not fluctuant. It is definitely more erythemato us than when I last saw him. SKIN: As above. PSYCH: Mood and affect normal. NEURO: Grossly int act. LABORATORY DATA: Results reviewed per HPI. IMPRESSION AND PLAN: Patient is a 61-year-old man with recurrent cellulitis. I agree with treating him with daptomycin and Zosyn. The etiology of this is unclear to me. I will perform serial exams . I may ask for a focused ultrasound of the area on his posterior calf to see if an abscess can be identified at this point. Unfortunately, I do not see a surgical target. I do believe that the leg is the likely source of his bacteremia. I know other sources are being worked up. I will continue to follow. /[id number]/MODL
[2017-06-26 04:43] LABS: INR 2.84 (0.83-1.16); PROTIME(PATIENT) 30.2 SEC (12.0-15.0)
[2017-06-26 04:57] LABS: ANION GAP 14 mEq/L (8-16); CALCIUM 7.2 mg/dL (8.5-10.4); CARBON DIOXIDE 16 mEq/l (22-31); CHLORIDE 104 mEq/L (97-110); CREATININE 2.3 mg/dL (0.7-1.3); GLOMERULAR FILTRATION RATE 29; GLUCOSE 113 mg/dL (70-100); POTASSIUM 3.9 mEq/L (3.5-5.2); SODIUM 134 mEq/L (134-144)
[2017-06-26 05:01] LABS: % IMMATURE GRANULYOCYTES 1.2 % (0.0-1.1); ABSOLUTE IMMATURE GRANULOCYTES 0.19 10^3/uL (0.00-0.10); ADD DIFF? NO; ADD MORPH? NO; ADD SCAN? NO; ATYPICAL LYMPHOCYTE FLAG 0 (0-99); FRAGMENT RBC FLAG 0 (0-99); HEMOGLOBIN 9.6 g/dL (13.7-17.5); LEFT SHIFT FLG 10 (0-99); LIPEMIA HEMOLYSIS FLAG 90 (0-99); MEAN CELL HEMOGLOBIN 37.4 pg (27.9-34.1); MEAN CELL HEMOGLOBIN CONCENTR. 34.3 g/dL (32.4-36.7); MEAN CELL VOLUME 108.9 fL (81.5-99.8); MEAN PLATELET VOLUME 12.4 fL (8.7-11.7); PLATELET CLUMPS FLAG 0 (0-99); PLATELET COUNT 67 10^3/uL (150-400); RED BLOOD CELL COUNT 2.57 10^6/uL (4.40-6.38); RED CELL DISTRIBUTION WIDTH 14.2 % (11.5-15.2)
[2017-06-26] MEDS: NS 1,000 ML IV SCH (06:19)
[2017-06-26] MEDS: PIPERACILLIN/TAZO 3.375 GM/DEX 50 ML IV SCH ×4 (06:19→23:44)
[2017-06-26] MEDS: HYDROCODONE/APAP 5/325 TAB PO PRN ×2 (09:18→16:59)
[2017-06-26] MEDS: CARVEDILOL 3.125 MG TAB PO SCH ×2 (09:18→17:50)
[2017-06-26] MEDS: MULTIVITAMINS 1 EACH TAB PO SCH (09:19)
[2017-06-26] MEDS: amLODIPine BESYLATE 5 MG TAB PO SCH (09:19)
--- NOTE | 2017-06-26 09:40 | HOSPPROG ---
Hospitalist Progress Note Assessment/Plan: DIAGNOSES: -acute sepsis with hypotension, fever, high white count, documented infection, acute organ failure -Klebsiella bacteremia, antibiotic sensitivity still pending -cellulitis of left leg -acute on chronic renal failure, etiology uncertain; he was recovering from previous acute renal failure felt to be due to ATN from either vancomycin and/ or hypotension during previous hospital stay. At this time he is on lisinopril and has bacteremia as well as right-sided congestive heart failure. There was 1 episode of hypotension last night but otherwise blood pressures have been normal. My suspicion is that this is largely due to a combination of lisinopril and right-sided congestive heart failure and that diuresing him will be the thing most helpful to his kidneys. However in the setting of bacteremia with sepsis this is difficult to ascertain with certainty. I will order urine electrolytes to calculate fractional excretion of sodium and review with Urology , I have placed a call for Dr. Bruner to consult. -severe chronic stasis edema of the legs, status post skin grafting on the right leg in the area where his current cellulitis is occurring -history of nephrectomy for renal carcinoma, single remaining kidney It appears that he failed at home while taking daptomycin for staph infection as he has now Klebsiella; question whether the Klebsiella was present all along her is a new emerging infection while taking daptomycin ANTIBIOTICS: -Zosyn started during previous admission earlier this month -daptomycin started June 25 PLANS: -continue current antibiotics, follow cultures and sensitivity was reports -check urine electrolytes, calculate FENA and review with Dr. Bruner -suspect that he will do better with diuresis than fluid support at this time but will ascertained that as before -discontinue hydrochlorothiazide and lisinopril at this time -will review with Dr. 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 Right leg with diffuse cellulitis from above the knee down to the foot. The leg has a focal area of increased tenderness posteriorly at mid calf but no palpable fluctuance and no visible necrotic changes, no mass, and there is no overtly ischemic changes to the leg or foot iv site ok Laboratory data: The creatinine up to 2.3 today otherwise laboratory data stable Objective: Vital Signs Temp Pulse Resp BP Pulse Ox 36.5 C 78 18 141/69 H 92 06/26/17 07:56 06/26/17 07:56 06/26/17 07:56 06/26/17 07:56 06/26/17 07:56 Laboratory Results 06/26/17 03:34 06/26/17 03:34 06/25/17 06/26/17 06/27/17 06:59 06:59 06:59 Intake Total 5800 Output Total 1100 Balance 4700 PT 30.2 SEC (12.0-15.0) H 06/26/17 03:34 INR 2.84 (0.83-1.16) H 06/26/17 03:34 ICD10 Worksheet Patient Problems: Problems Problem Status Onset Cellulitis Acute Fever Acute Sepsis Acute Alcohol intoxication Acute Altered mental status Acute Cellulitis Acute Dizziness Acute Dyspnea Acute Hypotension Acute MRSA (methicillin resistant Staphylococcus aureus) Acute ~06/09/17 Necrotizing fasciitis Acute Sepsis Acute
[2017-06-26] MEDS: HEPARIN 5,000 UNIT/0.5 ML SYR SC SCH ×3 (09:59→20:53)
[2017-06-26] MEDS: LISINOPRIL/HCTZ 20/12.5MG 1 EA TAB PO SCH (10:08)
[2017-06-26] MEDS: LACTULOSE 20 GM/30 ML UDCUP PO SCH (10:09)
[2017-06-26] MEDS: ENOXAPARIN 30 MG/0.3 ML SYR SC SCH (10:09)
[2017-06-26] MEDS ORDERED: FUROSEMIDE 40 MG/4 ML VIAL IVP ONE (11:23)
--- NOTE | 2017-06-26 11:31 | SOAPPROG ---
SOAP Progress Note Assessment/Plan: Assessment:Plan: HPI-reconsult for ARF on CRF and management of LE edema. -seen by Dr. Joseph on 06/18/17 -prior consult and studies reviewed -now with increased creatinine after readmission last night with recurrent cellulitis and bacteremia with Klebsiella, likely skin source [id number] -CPAP -HTN -Obesity -DJD -Chronic Edema -PE 2007 -ARF on CRF 2013, 2015, 2016 PSxHx-T&A -Uvulectomy -Retina -R NTX for RCC 2010 -fasciotomy and repair after necrotizing fasciitis LLE 2013 Social-no tobacco -no alcohol for 3 weeks, prior 2 drinks 4-5x per week - x 3? 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[place] -3 sibling, sister with resected brain tumor, 2 older brothers with DJD -Mother from complications of breast cancer, father at young age in construction accident ROS-negative except that included in HPI A/P ARF on CRF-likely hemodynamic -check urine studies-Na, Cr -urine culture -urine eos -stop JANELL-i and do not resume -stop CCB -manage BP with betablocker and diuretic -stop IVF -avoid NSAIDs and IV contrast CKD-unilateral kidney after NTX for RCC -baseline creatinine likely 1.2 to 1.5 -has had prior episodes of ARF on CRF without need for dialysis -most recently was as low as 1.2 on 06/15/2017 Edema-stop CCB -stop IVF -elevation of LE's -compression tubing -treat cellulitis -resume CPAP -start IV lasix, adjust based on response -continue potassium supplement as we will be actively diuresing the patient -bumex +/- albumin if needed 06/26/17 12:05 Subjective: LLE pain and cellulitis Objective: Vital Signs Temp Pulse Resp BP Pulse Ox 37.6 C 78 18 141/69 H 92 06/26/17 09:26 06/26/17 07:56 06/26/17 07:56 06/26/17 07:56 06/26/17 07:56 Laboratory Results 06/26/17 03:34 06/26/17 03:34 06/25/17 06/26/17 06/27/17 05:59 05:59 05:59 Intake Total 5800 Output Total 1100 300 Balance 4700 -300 PT 30.2 SEC (12.0-15.0) H 06/26/17 03:34 INR 2.84 (0.83-1.16) H 06/26/17 03:34 Physical Exam - Physical Exam General Appearance: WD/WN, alert, no apparent distress EENT: normal ENT inspection Neck: normal inspection Respiratory: chest non-tender, lungs clear, normal breath sounds, No respiratory distress Cardiac/Chest: regular rate, rhythm, No diastolic murmur, No systolic murmur Abdomen: normal bowel sounds, non-tender, soft, No organomegaly, No pulsatile mass Skin: other (cellulitis) Extremities: swelling Neuro/Psych: no motor/sensory deficits ICD10 Worksheet Patient Problems: Problems Problem Status Onset Cellulitis Acute Fever Acute Sepsis Acute Alcohol intoxication Acute Altered mental status Acute Cellulitis Acute Dizziness Acute Dyspnea Acute Hypotension Acute MRSA (methicillin resistant Staphylococcus aureus) Acute ~06/09/17 Necrotizing fasciitis Acute Sepsis Acute
[2017-06-26] MEDS: FUROSEMIDE 40 MG TAB PO SCH (11:50)
[2017-06-26 14:18] LABS: EOSMR EOSINOPHILS FEW EOS (NO EOS SEEN); EOSMR EPITHELIAL CELLS MODERATE EPITH CELLS; EOSMR PMNS FEW PMN CELLS
[2017-06-26 14:26] LABS: EOSMR RBCS FEW RBCS
--- NOTE | 2017-06-26 16:07 | PCMIDPN ---
Assessment/Plan: Assessment: Klebsiella bacteremia with new onset left lower extremity symptoms. Quickly happened on the heels of recent MRSA infection. Coverage of the Gram-positive spectrum exclusively likely set the stage for this gram-negative infection. Patient now on Zosyn in addition to daptomycin to cover both pathogens. Will redraw blood cultures tomorrow to document clearance. Expect he will need at least 2 weeks of appropriate coverage for the Klebsiella infection. Daptomycin treatment continues to be for 4 weeks total. Plan: 1. Continue IV daptomycin. 2. Continue IV Zosyn. Await for sensitivity panel to Klebsiella in order to see if we can narrow coverage. Subjective: Patient is resting in his hospital bed. He states that his left leg in his posterior calf especially is painful. He has no fevers or chills. He appears to be tolerating both daptomycin and Zosyn. Objective: Daptomycin #7 Zosyn # 2 Vital Signs Temp Pulse Resp BP Pulse Ox 37.6 C 72 19 116/56 L 92 06/26/17 09:26 06/26/17 12:06 06/26/17 12:06 06/26/17 12:06 06/26/17 12:06 Laboratory Results 06/26/17 03:34 06/26/17 03:34 06/25/17 06/26/17 06/27/17 05:59 05:59 05:59 Intake Total 5800 Output Total 1100 300 Balance 4700 -300 - Physical Exam General Appearance: WD/WN, alert, no apparent distress, non-toxic Respiratory: lungs clear, normal breath sounds, No respiratory distress Cardiac/Chest: regular rate, rhythm, No tachycardia Extremities: calf tenderness, inflammation, erythema, No non-tender, No normal inspection Skin: normal color, warm/dry, No rash Neuro/Psych: alert, normal mood/affect, oriented x 3 ICD10 Worksheet Patient Problems: Problems Problem Status Onset Cellulitis Acute Fever Acute Sepsis Acute Alcohol intoxication Acute Altered mental status Acute Cellulitis Acute Dizziness Acute Dyspnea Acute Hypotension Acute MRSA (methicillin resistant Staphylococcus aureus) Acute ~06/09/17 Necrotizing fasciitis Acute Sepsis Acute
[2017-06-26] MEDS: DAPTOMYCIN IV SCH (16:58)
[2017-06-26] MEDS: NS IV SCH (16:58)
[2017-06-26] MEDS: POTASSIUM CL 10 MEQ TAB PO SCH (16:58)
--- NOTE | 2017-06-26 17:48 | SOAPPROG ---
SOAP Progress Note Assessment/Plan: Assessment: 61 year-old man readmitted with left lower extremity cellulitis versus lymphedema on MRI Unable to bear weight on left lower extremity due to pain IV daptomycin and Zosyn, appreciate ID Appreciate hospitalist management of comorbidities Reviewed MRI with Radiology this morning, areas of fasciitis superior discontiguous. Does not appear to be a surgical solution to this problem We will continue to monitor Additionally seen by Dr. Elizabeth Arechiga. S: Pain keeping him from bearing weight. No pain when at rest. He is elevating his like O: Lying in bed, comfortable, no acute distress No increased work of breathing Peripheral edema bilateral lower extremities, significantly increased in left lower extremity LLE Erythema of calf ankle and forefoot, blanching Objective: Vital Signs Temp Pulse Resp BP Pulse Ox 36.9 C 78 19 116/58 L 92 06/26/17 16:45 06/26/17 16:45 06/26/17 12:06 06/26/17 16:45 06/26/17 16:45 Laboratory Results 06/26/17 03:34 06/26/17 03:34 06/25/17 06/26/17 06/27/17 05:59 05:59 05:59 Intake Total 5800 2000 Output Total 1100 300 Balance 4700 1700 PT 30.2 SEC (12.0-15.0) H 06/26/17 03:34 INR 2.84 (0.83-1.16) H 06/26/17 03:34 ICD10 Worksheet Patient Problems: Problems Problem Status Onset Cellulitis Acute Fever Acute Sepsis Acute Alcohol intoxication Acute Altered mental status Acute Cellulitis Acute Dizziness Acute Dyspnea Acute Hypotension Acute MRSA (methicillin resistant Staphylococcus aureus) Acute ~06/09/17 Necrotizing fasciitis Acute Sepsis Acute
[2017-06-26] MEDS: ZOLPIDEM TARTRATE 5 MG TAB PO PRN (20:53)
[2017-06-27] MEDS: PIPERACILLIN/TAZO 3.375 GM/DEX 50 ML IV SCH (05:34)
[2017-06-27] MEDS: HEPARIN 5,000 UNIT/0.5 ML SYR SC SCH ×3 (05:34→21:32)
[2017-06-27 06:44] LABS: ANION GAP 9 mEq/L (8-16); CALCIUM 7.5 mg/dL (8.5-10.4); CARBON DIOXIDE 17 mEq/l (22-31); CHLORIDE 105 mEq/L (97-110); CREATININE 2.5 mg/dL (0.7-1.3); GLOMERULAR FILTRATION RATE 26; GLUCOSE 93 mg/dL (70-100); POTASSIUM 4.1 mEq/L (3.5-5.2); SODIUM 131 mEq/L (134-144)
--- NOTE | 2017-06-27 07:30 | SOAPPROG ---
SOAP Progress Note Assessment/Plan: Assessment: 61 yo well known to me with recurrent cellulitus and bacteremia Leg improved today. Still tenderness locally posterior where previous graft ends. Ordering ultrasound Lymphadema as a result of obesity and infection. Will refer for outpatient lymphadema therapy S: Feeling better today O: erythema is less intense and it is less warm and less edema Still focal tenderness and pain with stretching achilles Plan: 06/27/17 07:27 Objective: Vital Signs Temp Pulse Resp BP Pulse Ox 36.9 C 70 14 127/59 H 91 L 06/27/17 04:00 06/27/17 04:00 06/27/17 04:00 06/27/17 04:00 06/27/17 04:00 Laboratory Results 06/26/17 03:34 06/27/17 06:15 06/26/17 06/27/17 06/28/17 05:59 05:59 05:59 Intake Total 5800 2550 Output Total 1100 2075 Balance 4700 475 PT 30.2 SEC (12.0-15.0) H 06/26/17 03:34 INR 2.84 (0.83-1.16) H 06/26/17 03:34 Physical Exam - Physical Exam General Appearance: WD/WN, alert, no apparent distress, obese EENT: PERRL/EOMI, normal ENT inspection, No scleral icterus (R), No scleral icterus (L), No hearing deficit Respiratory: No accessory muscle use Cardiac/Chest: regular rate, rhythm, edema, other ICD10 Worksheet Patient Problems: Problems Problem Status Onset Bacteremia Acute Cellulitis Acute Fever Acute Sepsis Acute Alcohol intoxication Acute Altered mental status Acute Cellulitis Acute Dizziness Acute Dyspnea Acute Hypotension Acute MRSA (methicillin resistant Staphylococcus aureus) Acute ~06/09/17 Necrotizing fasciitis Acute Sepsis Acute
--- NOTE | 2017-06-27 08:47 | SOAPPROG ---
SOAP Progress Note Assessment/Plan: Assessment: 1. CORTNEY. Likely hemodynamic due to sepsis/pulm htn/acei. Creat up slightly today. Off ACEI, avoid restarting in future. 2. Cellulitis. +Klebsiella, pansens, can narrow zosyn, await ID. Also on GP coverage with dapto. 3. LE edema. Lymphedema/infection/pulm HTN/obesity/CORTNEY all contributing. Give lasix again today, 40mg IV. Increase frequency once creat clearly plateaus. Elevate, cash wrap when pt can tolerate. 4. HTN. Well controlled on coreg currently. Diurese. Plan: 06/27/17 08:44 06/27/17 08:50 06/27/17 08:51 Subjective: Left calf still hurts but much better than yesterday. Objective: Vital Signs Temp Pulse Resp BP Pulse Ox 37.4 C 75 20 125/52 H 91 L 06/27/17 08:00 06/27/17 08:00 06/27/17 08:00 06/27/17 08:00 06/27/17 08:00 Laboratory Results 06/26/17 03:34 06/27/17 06:15 06/26/17 06/27/17 06/28/17 05:59 05:59 05:59 Intake Total 5800 2550 Output Total 1100 2075 250 Balance 4700 475 -250 PT 30.2 SEC (12.0-15.0) H 06/26/17 03:34 INR 2.84 (0.83-1.16) H 06/26/17 03:34 In bed, NAD, obese wm RRR, no m/g/r CTAB Abdom obese, nt 4+ L>R indurated below knee pitting edema with beefy red appearance and increased warmth from dorsum of left foot up to knee Skin graft L medial calf intact ICD10 Worksheet Patient Problems: Problems Problem Status Onset Bacteremia Acute Cellulitis Acute Fever Acute Sepsis Acute Alcohol intoxication Acute Altered mental status Acute Cellulitis Acute Dizziness Acute Dyspnea Acute Hypotension Acute MRSA (methicillin resistant Staphylococcus aureus) Acute ~06/09/17 Necrotizing fasciitis Acute Sepsis Acute
[2017-06-27] MEDS ORDERED: FUROSEMIDE 40 MG/4 ML VIAL IVP ONE (08:50)
[2017-06-27] MEDS: POTASSIUM CL 10 MEQ TAB PO SCH (09:28)
[2017-06-27] MEDS: MULTIVITAMINS 1 EACH TAB PO SCH (09:28)
[2017-06-27] MEDS: CARVEDILOL 3.125 MG TAB PO SCH ×2 (09:28→17:24)
[2017-06-27] MEDS: HYDROCODONE/APAP 5/325 TAB PO PRN ×3 (09:46→17:23)
--- NOTE | 2017-06-27 10:08 | HOSPPROG ---
Hospitalist Progress Note Assessment/Plan: DIAGNOSES: -acute sepsis with hypotension, fever, high white count, documented infection, acute organ failure -Klebsiella bacteremia, antibiotic sensitivity still pending -cellulitis of left leg -acute on chronic renal failure, most likely primarily pre renal but he does have a few eosinophils and he may still be having issues related to his past vancomycin use or potentially ATN from infection at this time -severe chronic stasis edema of the legs, status post skin grafting on the right leg in the area where his current cellulitis is occurring -history of nephrectomy for renal carcinoma, single remaining kidney It appears that he failed at home while taking daptomycin for staph infection as he has now Klebsiella; question whether the Klebsiella was present all along her is a new emerging infection while taking daptomycin. I reviewed today in detail with Dr. Mcdonald. He has nearly stabilize his renal function I believe this will start to improve over the next day or 2. Both agree at this point gentle diuresis along with leg elevation is indicated but will clearly need to be careful with his kidneys. 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 there is still significant cellulitis on the right leg although it is slightly less red, it covers the same area. He still diffusely tender with a focal tender area on the posterior calf iv site ok Laboratory data: The creatinine up to 2.5 today otherwise laboratory data stable Microbiology: Klebsiella is pansensitive and blood cultures I reviewed the most recent ultrasound of his leg which had not been read by the radiologist at the time. I see a tremendous amount of some of sick subcutaneous edema. There is 1 area would be concerned about a possible fluid collection but I cannot tell if this is show active etiology. Will need to review with radiologist Objective: Vital Signs Temp Pulse Resp BP Pulse Ox 37.4 C 75 20 125/52 H 91 L 06/27/17 08:00 06/27/17 08:00 06/27/17 08:00 06/27/17 08:00 06/27/17 08:00 Laboratory Results 06/26/17 03:34 06/27/17 06:15 06/26/17 06/27/17 06/28/17 06:59 06:59 06:59 Intake Total 5800 2550 Output Total 1100 2075 250 Balance 4700 475 -250 PT 30.2 SEC (12.0-15.0) H 06/26/17 03:34 INR 2.84 (0.83-1.16) H 06/26/17 03:34 ICD10 Worksheet Patient Problems: Problems Problem Status Onset Bacteremia Acute Cellulitis Acute Fever Acute Sepsis Acute Alcohol intoxication Acute Altered mental status Acute Cellulitis Acute Dizziness Acute Dyspnea Acute Hypotension Acute MRSA (methicillin resistant Staphylococcus aureus) Acute ~06/09/17 Necrotizing fasciitis Acute Sepsis Acute
[2017-06-27] MEDS ORDERED: PIPERACILLIN/TAZO 2.25 GM/DEX 50 ML IV SCH (12:00)
--- NOTE | 2017-06-27 14:45 | PCMIDPN ---
Assessment/Plan: Assessment: Klebsiella bacteremia with new onset left lower extremity symptoms. Quickly happened on the heels of recent MRSA infection. Coverage of the Gram-positive spectrum exclusively likely set the stage for this gram-negative infection. Patient now on Zosyn in addition to daptomycin to cover both pathogens. He will need at least 2 weeks of appropriate coverage for the Klebsiella infection. Daptomycin treatment continues to be for 4 weeks total. Draw 2 sets of blood cultures today to document clearance. Plan: 1. Continue IV daptomycin. 2. Continue IV Zosyn. Decrease dose given ongoing elevation of creatinine. 3. Redraw blood cultures. 06/27/17 14:46 Subjective: Patient is resting comfortably in his hospital bed. He states that his left lower extremity is feeling less painful today than it did yesterday. It is less swollen as well. No other issues. Objective: Daptomycin #8 Zosyn #3 Vital Signs Temp Pulse Resp BP Pulse Ox 35.0 C L 66 18 93/42 L 91 L 06/27/17 11:53 06/27/17 11:53 06/27/17 11:53 06/27/17 11:53 06/27/17 11:53 Microbiology 06/25/17 14:00 Urine Culture - Final Urine,Clean Catch Laboratory Results 06/26/17 03:34 06/27/17 06:15 06/26/17 06/27/17 06/28/17 05:59 05:59 05:59 Intake Total 5800 2550 Output Total 1100 2075 250 Balance 4700 475 -250 - Physical Exam General Appearance: WD/WN, alert, no apparent distress, obese, non-toxic Respiratory: lungs clear, normal breath sounds, No respiratory distress Cardiac/Chest: regular rate, rhythm, No tachycardia Extremities: pedal edema, inflammation, erythema, No non-tender, No normal inspection Skin: normal color, warm/dry, No rash Neuro/Psych: alert, normal mood/affect, oriented x 3 ICD10 Worksheet Patient Problems: Problems Problem Status Onset Bacteremia Acute Cellulitis Acute Fever Acute Sepsis Acute Alcohol intoxication Acute Altered mental status Acute Cellulitis Acute Dizziness Acute Dyspnea Acute Hypotension Acute MRSA (methicillin resistant Staphylococcus aureus) Acute ~06/09/17 Necrotizing fasciitis Acute Sepsis Acute
[2017-06-27] MEDS: NS IV SCH (17:23)
[2017-06-27] MEDS: DAPTOMYCIN IV SCH (17:23)
[2017-06-27] MEDS: ZOLPIDEM TARTRATE 5 MG TAB PO PRN (21:40)
[2017-06-28] MEDS: HEPARIN 5,000 UNIT/0.5 ML SYR SC SCH ×3 (06:23→21:01)
[2017-06-28 07:06] LABS: ANION GAP 11 mEq/L (8-16); CALCIUM 7.9 mg/dL (8.5-10.4); CARBON DIOXIDE 17 mEq/l (22-31); CHLORIDE 104 mEq/L (97-110); CREATININE 2.3 mg/dL (0.7-1.3); GLOMERULAR FILTRATION RATE 29; GLUCOSE 96 mg/dL (70-100); SODIUM 132 mEq/L (134-144)
--- NOTE | 2017-06-28 08:11 | PCMIDPN ---
Assessment/Plan: # MRSA bacteremia, 06/09 first positive; 06/14 first neg blood cx --on daptomycin due to challenges dosing vancomycin with renal insufficiency/ single kidney. --Stop Date: 07/12/17 # Klebsiella bacteremia : source LLE cellulitis, doubt PICC line source because presented with recurrent LLE cellulitis. Cellulitis LLE - my first exam but reportedly improved by other providers exams. MRI LLE showed no drainage problem. --monitor repeat blood cx --probably need to exchange PICC when blood cultures clear --narrowed from Zosyn to ceftriaxone yesterday, plan 14 days of therapy (07/11/17 ). Could use FQ as well, but patient already with IV access therefore reasonable to continue ceftriaxone which may have less toxicity than FQ # ARF, improved : 2.5 to 2.3 today. Avoid renal toxic agents # Chr LE venous insufficiency vs lymphedema: discussed skin hygiene, compression , lymphedema pumps once infection cleared micro 06/25 blood cx 1/2 klebs (source of draw not indicated) 06/27 blood cx (2) pending meds daptomycin 700mg IV daily ceftriaxone 2gm IV daily, #2 Subjective: patient still with LLE pain and warmth but improved no diarrhea no rash or itching Objective: Vital Signs Temp Pulse Resp BP Pulse Ox 37.3 C 71 16 134/49 H 91 L 06/28/17 04:00 06/28/17 04:00 06/28/17 04:00 06/28/17 04:00 06/28/17 04:00 Microbiology 06/25/17 14:00 Urine Culture - Final Urine,Clean Catch Laboratory Results 06/26/17 03:34 06/28/17 06:30 06/27/17 06/28/17 06/29/17 05:59 05:59 05:59 Intake Total 2550 1140 Output Total 2075 950 Balance 475 190 - Physical Exam General Appearance: alert, no apparent distress, obese Respiratory: No accessory muscle use Neck: supple Cardiac/Chest: regular rate, rhythm (distant heart sounds) Extremities: pedal edema (3-4+ bilaterally), erythema (LLE (dependent at time of exam) including foot, and lower leg.), No calf tenderness Abdomen: non-tender, soft Male Genitalia: No pardo Skin: No rash Neuro/Psych: alert, normal mood/affect, oriented x 3 - Line/s LUE PICC Lines: No drainage, No erythema ICD10 Worksheet Patient Problems: Problems Problem Status Onset Bacteremia Acute Cellulitis Acute Fever Acute Sepsis Acute Alcohol intoxication Acute Altered mental status Acute Cellulitis Acute Dizziness Acute Dyspnea Acute Hypotension Acute MRSA (methicillin resistant Staphylococcus aureus) Acute ~06/09/17 Necrotizing fasciitis Acute Sepsis Acute
[2017-06-28] MEDS: CARVEDILOL 3.125 MG TAB PO SCH ×2 (09:47→18:36)
[2017-06-28] MEDS: HYDROCODONE/APAP 5/325 TAB PO PRN ×3 (09:47→20:57)
[2017-06-28] MEDS: POTASSIUM CL 10 MEQ TAB PO SCH (09:47)
[2017-06-28] MEDS: MULTIVITAMINS 1 EACH TAB PO SCH (09:47)
[2017-06-28] MEDS: cefTRIAXone 2 GM in D5W 50 ML IV SCH (09:48)
[2017-06-28] MEDS: FUROSEMIDE 40 MG/4 ML VIAL IVP SCH ×2 (09:48→15:09)
--- NOTE | 2017-06-28 11:01 | SOAPPROG ---
SOAP Progress Note Assessment/Plan: Assessment:Plan: ARF on CRF-likely hemodynamic -slowly better -manage BP with betablocker and diuretic -avoid NSAIDs and IV contrast CKD-unilateral kidney after NTX for RCC -baseline creatinine likely 1.2 to 1.5 -has had prior episodes of ARF on CRF without need for dialysis -most recently was as low as 1.2 on 06/15/2017 Edema-CCB stopped on admission -on prn diuretic -I's>>O's -fluid restrict -scheduled lasix Bid -elevation of LE's -compression tubing -treat cellulitis -CPAP -lasix response should be adequate with Bid dosing -continue potassium supplement as we will be actively diuresing the patient 06/28/17 11:00 Subjective: stable overnite Objective: Vital Signs Temp Pulse Resp BP Pulse Ox 37.7 C 81 18 137/56 H 95 06/28/17 08:00 06/28/17 08:00 06/28/17 08:00 06/28/17 08:00 06/28/17 08:00 Microbiology 06/25/17 14:00 Urine Culture - Final Urine,Clean Catch Laboratory Results 06/26/17 03:34 06/28/17 06:30 06/27/17 06/28/17 06/29/17 05:59 05:59 05:59 Intake Total 2550 1140 Output Total 2075 950 Balance 475 190 PT 30.2 SEC (12.0-15.0) H 06/26/17 03:34 INR 2.84 (0.83-1.16) H 06/26/17 03:34 Physical Exam - Physical Exam General Appearance: WD/WN, alert, no apparent distress EENT: normal ENT inspection Neck: normal inspection Respiratory: lungs clear, normal breath sounds, No respiratory distress Cardiac/Chest: regular rate, rhythm Abdomen: normal bowel sounds Extremities: swelling, other (cellulitis) ICD10 Worksheet Patient Problems: Problems Problem Status Onset Bacteremia Acute Cellulitis Acute Fever Acute Sepsis Acute Alcohol intoxication Acute Altered mental status Acute Cellulitis Acute Dizziness Acute Dyspnea Acute Hypotension Acute MRSA (methicillin resistant Staphylococcus aureus) Acute ~06/09/17 Necrotizing fasciitis Acute Sepsis Acute
--- NOTE | 2017-06-28 12:12 | SOAPPROG ---
SOAP Progress Note Assessment/Plan: Assessment: 61 yo well known to me with recurrent cellulitus and bacteremia Leg continues to improve. Can put weight on foot now. Less tender No abscess on ultrasound I placed spandagrip. 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 Will refer for outpatient lymphadema therapy S: Feeling better today O: erythema is less intense and it is less warm. There is more edema bilaterally but legs have been down for 1 hr Plan: 06/27/17 07:27 06/28/17 12:10 Objective: Vital Signs Temp Pulse Resp BP Pulse Ox 37.4 C 76 19 96/52 L 92 06/28/17 12:00 06/28/17 12:00 06/28/17 12:00 06/28/17 12:00 06/28/17 12:00 Microbiology 06/25/17 14:00 Urine Culture - Final Urine,Clean Catch Laboratory Results 06/26/17 03:34 06/28/17 06:30 06/27/17 06/28/17 06/29/17 05:59 05:59 05:59 Intake Total 2550 1140 Output Total 2075 950 400 Balance 475 190 -400 PT 30.2 SEC (12.0-15.0) H 06/26/17 03:34 INR 2.84 (0.83-1.16) H 06/26/17 03:34 ICD10 Worksheet Patient Problems: Problems Problem Status Onset Bacteremia Acute Cellulitis Acute Fever Acute Sepsis Acute Alcohol intoxication Acute Altered mental status Acute Cellulitis Acute Dizziness Acute Dyspnea Acute Hypotension Acute MRSA (methicillin resistant Staphylococcus aureus) Acute ~06/09/17 Necrotizing fasciitis Acute Sepsis Acute
--- NOTE | 2017-06-28 18:00 | HOSPPROG ---
Hospitalist Progress Note Assessment/Plan: assessment: 61-year-old male presents with sepsis secondary to Klebsiella bacteremia complicated by acute kidney injury on chronic kidney disease stage 3 Plan: 1. Sepsis. Present on admission, evidenced by hypotension, leukocytosis, fever , evidence of end-organ failure notably acute kidney injury demonstrating autonomic dysregulation in the setting of infection - continue on empiric antibiotics -continue to monitor CBC -continue monitor fever curve 2. Klebsiella bacteremia. Most likely source is cellulitis of left lower extremity was most likely not present at time of last discharge as he had no leukocytosis or fever at that time - appreciate ongoing infectious Disease consultation -continue on IV ceftriaxone -will require repeat blood cultures to demonstrate clearance -will most likely require PICC line replacement once repeat blood cultures have been drawn 3. Cellulitis. Left lower extremity, evidenced by erythema, excoriations lending themselves to bacterial invasion and resulting in bacteremia - appreciate ongoing surgical eval, hx of skin grafting 4. acute kidney injury on chronic kidney disease stage 3. most likely secondary to hypoperfusion in the setting of sepsis with rising creatinine level from previous discharge value -history of nephrectomy renal cell carcinoma, solitary kidney - patient remains hypervolemic, net even overnight -per Nephrology, increased diuretic to twice daily and monitor electrolytes 5. Hyponatremia. Acute, secondary to renal hypoperfusion in the setting of hypovolemia and kidney injury 6. recent MR assay bacteremia. Continue on daptomycin Diet. Low-salt Prophylaxis. High risk patient, heparin subcu Code. Full Disposition. Anticipated discharge uncertain, remains very hypervolemic and kidney injury unresolved Subjective: counseled patient extensively regarding his management of edema, progression of recent presentation, plan for increase in diuretic Objective: Vital Signs Temp Pulse Resp BP Pulse Ox 36.8 C 70 16 114/98 H 93 06/28/17 15:16 06/28/17 15:16 06/28/17 15:16 06/28/17 15:16 06/28/17 15:16 Laboratory Results 06/26/17 03:34 06/28/17 06:30 06/27/17 06/28/17 06/29/17 05:59 05:59 05:59 Intake Total 2550 1140 Output Total 2075 950 400 Balance 475 190 -400 PT 30.2 SEC (12.0-15.0) H 06/26/17 03:34 INR 2.84 (0.83-1.16) H 06/26/17 03:34 - Physical Exam Constitutional: not in pain, obese Cardiovascular: systolic murmur ( distant heart sounds, 2/6 at the right sternal border), edema ( 2+ bilateral lower extremity), No irregularly irregular , No tachycardia Respiratory: no respiratory distress, no rales or rhonchi, clear to auscultation Gastrointestinal: distension ( moderate), No tenderness Skin: other ( left lower extremity wrapped, right lower extremity hyper pigmented but not erythematous) Neurologic: AAOx3 Psychiatric: interacting appropriately, not anxious, not encephalopathic, thought process linear ICD10 Worksheet Patient Problems: Problems Problem Status Onset Cellulitis Acute Fever Acute Sepsis Acute Bacteremia Acute MRSA (methicillin resistant Staphylococcus aureus) Acute ~06/09/17 Sepsis Acute Necrotizing fasciitis Acute Hypotension Acute Dizziness Acute Dyspnea Acute Cellulitis Acute Altered mental status Acute Alcohol intoxication Acute
[2017-06-28] MEDS: NS IV SCH (18:36)
[2017-06-28] MEDS: DAPTOMYCIN IV SCH (18:36)
[2017-06-28] MEDS: ZOLPIDEM TARTRATE 5 MG TAB PO PRN (20:57)
[2017-06-29 05:52] LABS: % IMMATURE GRANULYOCYTES 0.7 % (0.0-1.1); ABSOLUTE IMMATURE GRANULOCYTES 0.05 10^3/uL (0.00-0.10); ADD DIFF? NO; ADD MORPH? NO; ADD SCAN? NO; ATYPICAL LYMPHOCYTE FLAG 0 (0-99); FRAGMENT RBC FLAG 0 (0-99); HEMOGLOBIN 9.7 g/dL (13.7-17.5); LEFT SHIFT FLG 0 (0-99); LIPEMIA HEMOLYSIS FLAG 90 (0-99); MEAN CELL HEMOGLOBIN 36.9 pg (27.9-34.1); MEAN CELL HEMOGLOBIN CONCENTR. 34.6 g/dL (32.4-36.7); MEAN CELL VOLUME 106.5 fL (81.5-99.8); MEAN PLATELET VOLUME 10.9 fL (8.7-11.7); PLATELET CLUMPS FLAG 30 (0-99); PLATELET COUNT 78 10^3/uL (150-400); RED BLOOD CELL COUNT 2.63 10^6/uL (4.40-6.38); RED CELL DISTRIBUTION WIDTH 13.5 % (11.5-15.2)
[2017-06-29] MEDS: HEPARIN 5,000 UNIT/0.5 ML SYR SC SCH (05:54)
[2017-06-29 06:02] LABS: INR 2.23 (0.83-1.16); PROTIME(PATIENT) 24.9 SEC (12.0-15.0)
[2017-06-29 06:03] LABS: ALBUMIN 2.5 g/dL (3.5-5.0); ANION GAP 12 mEq/L (8-16); CALCIUM 8.2 mg/dL (8.5-10.4); CARBON DIOXIDE 17 mEq/l (22-31); CHLORIDE 106 mEq/L (97-110); CREATININE 2.1 mg/dL (0.7-1.3); GLOMERULAR FILTRATION RATE 32; GLUCOSE 111 mg/dL (70-100); POTASSIUM 4.2 mEq/L (3.5-5.2); SODIUM 135 mEq/L (134-144)
[2017-06-29] MEDS: POTASSIUM CL 10 MEQ TAB PO SCH (10:05)
[2017-06-29] MEDS: HYDROCODONE/APAP 5/325 TAB PO PRN ×2 (10:05→20:14)
[2017-06-29] MEDS: CARVEDILOL 3.125 MG TAB PO SCH ×2 (10:05→17:14)
[2017-06-29] MEDS: MULTIVITAMINS 1 EACH TAB PO SCH (10:06)
[2017-06-29] MEDS: FUROSEMIDE 40 MG/4 ML VIAL IVP SCH ×2 (10:07→16:17)
[2017-06-29] MEDS: cefTRIAXone 2 GM in D5W 50 ML IV SCH (10:07)
--- NOTE | 2017-06-29 10:55 | SOAPPROG ---
SOAP Progress Note Assessment/Plan: Assessment: 61 yo well known to me with recurrent cellulitus and bacteremia Leg continues to improve. Can put weight on foot now. Less tender Spandagrip 12-24 hours per day. 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 Will refer for outpatient lymphadema therapy S: Feeling better today O: erythema is less intense and it is less warm. Less edema today Plan: 06/27/17 07:27 06/28/17 12:10 06/29/17 10:54 Objective: Vital Signs Temp Pulse Resp BP Pulse Ox 37.1 C 70 14 112/60 90 L 06/29/17 07:37 06/29/17 07:37 06/29/17 07:37 06/29/17 07:37 06/29/17 07:37 Laboratory Results 06/29/17 05:47 06/29/17 05:47 06/28/17 06/29/17 06/30/17 05:59 05:59 05:59 Intake Total 1140 1005 240 Output Total 950 2925 240 Balance 190 -1920 0 PT 24.9 SEC (12.0-15.0) H 06/29/17 05:47 INR 2.23 (0.83-1.16) H 06/29/17 05:47 ICD10 Worksheet Patient Problems: Problems Problem Status Onset Bacteremia Acute Cellulitis Acute Fever Acute Sepsis Acute Alcohol intoxication Acute Altered mental status Acute Cellulitis Acute Dizziness Acute Dyspnea Acute Hypotension Acute MRSA (methicillin resistant Staphylococcus aureus) Acute ~06/09/17 Necrotizing fasciitis Acute Sepsis Acute
[2017-06-29] MEDS: DAPTOMYCIN IV SCH (16:17)
[2017-06-29] MEDS: NS IV SCH (16:17)
--- NOTE | 2017-06-29 18:36 | HOSPPROG ---
Hospitalist Progress Note Assessment/Plan: assessment: 61-year-old male presents with sepsis secondary to Klebsiella bacteremia complicated by acute kidney injury on chronic kidney disease stage 3 Plan: 1. Sepsis. Present on admission, evidenced by hypotension, leukocytosis, fever , evidence of end-organ failure notably acute kidney injury demonstrating autonomic dysregulation in the setting of infection -continue on empiric antibiotics -continue to monitor CBC -continue monitor fever curve 2. Klebsiella bacteremia. Most likely source is cellulitis of left lower extremity was most likely not present at time of last discharge as he had no leukocytosis or fever at that time -appreciate ongoing infectious Disease consultation -continue on IV ceftriaxone -will require repeat blood cultures to demonstrate clearance -will most likely require PICC line replacement once repeat blood cultures have been drawn -monitor diarrhea, w/ normal WBC doubt CDiff 3. Cellulitis. Left lower extremity, evidenced by erythema, excoriations lending themselves to bacterial invasion and resulting in bacteremia -d/w Dr Arechiga, she reports affected area is improving from prior eval, no surgical intervention required 4. Acute kidney injury on chronic kidney disease stage 3. most likely secondary to hypoperfusion in the setting of sepsis with rising creatinine level from previous discharge value -history of nephrectomy renal cell carcinoma, solitary kidney -patient remains hypervolemic, net neg 1.9L o/n on increased dosage of lasix 5. Hyponatremia. Acute, secondary to renal hypoperfusion in the setting of hypovolemia and kidney injury 6. Recent MRSA bacteremia. Continue on daptomycin 7. Cirrhosis. Chronic, synthetic function impaired Diet. Low-salt Prophylaxis. High risk patient, INR 2.2 Code. Full Disposition. Anticipated discharge uncertain, remains very hypervolemic and kidney injury unresolved Subjective: patient reports he is not any pain in his legs, they remain heavy Objective: Vital Signs Temp Pulse Resp BP Pulse Ox 36.7 C 70 18 122/55 H 97 06/29/17 16:00 06/29/17 16:00 06/29/17 16:00 06/29/17 16:00 06/29/17 16:00 Laboratory Results 06/29/17 05:47 06/29/17 05:47 06/28/17 06/29/17 06/30/17 05:59 05:59 05:59 Intake Total 1140 1005 704 Output Total 950 2925 940 Balance 190 -1920 -236 PT 24.9 SEC (12.0-15.0) H 06/29/17 05:47 INR 2.23 (0.83-1.16) H 06/29/17 05:47 - Physical Exam Constitutional: no apparent distress, not in pain, obese, No uncomfortable Cardiovascular: systolic murmur ( distant heart sounds, 1/6 at the sternum), edema ( 2+ bilateral lower extremity), No irregularly irregular, No tachycardia Respiratory: no respiratory distress, no rales or rhonchi, clear to auscultation Gastrointestinal: normoactive bowel sounds, distension ( moderate), No tenderness, No guarding Skin: other ( blanching ability of the left lower extremity, particularly medially down near the ankle, no tenderness, flaking of skin but no visible open excoriations) Neurologic: AAOx3 Psychiatric: not anxious, not encephalopathic, thought process linear, flat affect ICD10 Worksheet Patient Problems: Problems Problem Status Onset Cellulitis Acute Fever Acute Sepsis Acute Bacteremia Acute MRSA (methicillin resistant Staphylococcus aureus) Acute ~06/09/17 Sepsis Acute Necrotizing fasciitis Acute Hypotension Acute Dizziness Acute Dyspnea Acute Cellulitis Acute Altered mental status Acute Alcohol intoxication Acute
--- NOTE | 2017-06-29 19:35 | PCMIDPN ---
Assessment/Plan: Assessment/Plan: * MRSA bacteremia: Completing course of daptomycin. Anticipate therapy through 07/12/2017. * Klebsiella pneumoniae bacteremia: Likely associated with recurrent left lower extremity cellulitis. Persistent cellulitis over left lower extremity above skin graft. Continue ceftriaxone. Plan therapy for 14 days with in date of 07/11/2017. * Diarrhea: Patient states improved. Continue to monitor. 06/29/17 19:31 Subjective: Patient with persistent left lower extremity pain although less prominent. Objective: Vital Signs Temp Pulse Resp BP Pulse Ox 36.7 C 70 18 122/55 H 97 06/29/17 16:00 06/29/17 16:00 06/29/17 16:00 06/29/17 16:00 06/29/17 16:00 Laboratory Results 06/29/17 05:47 06/29/17 05:47 06/28/17 06/29/17 06/30/17 05:59 05:59 05:59 Intake Total 1140 1005 704 Output Total 950 2925 940 Balance 529 -7920 -115 Daptomycin 700 mg IV daily (End date 07/12/2017) Ceftriaxone # 3 (End date 07/11/2017) Blood cultures 06/27/2017 no growth - Physical Exam General Appearance: alert, no apparent distress EENT: No scleral icterus, No thrush Cardiac/Chest: regular rate, rhythm Extremities: inflammation ( erythema with induration, warmth and tenderness over left lower extremity superior to skin graft and over posterior calf) Abdomen: non-tender, No distended - Line/s LUE PICC Lines: No drainage, No erythema ICD10 Worksheet Patient Problems: Problems Problem Status Onset Bacteremia Acute Cellulitis Acute Fever Acute Sepsis Acute Alcohol intoxication Acute Altered mental status Acute Cellulitis Acute Dizziness Acute Dyspnea Acute Hypotension Acute MRSA (methicillin resistant Staphylococcus aureus) Acute ~06/09/17 Necrotizing fasciitis Acute Sepsis Acute
[2017-06-29] MEDS: ZOLPIDEM TARTRATE 5 MG TAB PO PRN (22:48)
[2017-06-30 07:36] LABS: ADD DIFF? YES; ADD MORPH? NO; FRAGMENT RBC FLAG 0 (0-99); HEMATOCRIT 28.8 % (40.0-51.0); HEMOGLOBIN 9.7 g/dL (13.7-17.5); LEFT SHIFT FLG 0 (0-99); LIPEMIA HEMOLYSIS FLAG 80 (0-99); MEAN CELL HEMOGLOBIN 36.6 pg (27.9-34.1); MEAN CELL HEMOGLOBIN CONCENTR. 33.7 g/dL (32.4-36.7); MEAN CELL VOLUME 108.7 fL (81.5-99.8); MEAN PLATELET VOLUME 12.2 fL (8.7-11.7); PLATELET CLUMPS FLAG 0 (0-99); PLATELET COUNT 77 10^3/uL (150-400); RED BLOOD CELL COUNT 2.65 10^6/uL (4.40-6.38); RED CELL DISTRIBUTION WIDTH 13.8 % (11.5-15.2)
[2017-06-30 07:39] LABS: ADD SCAN? NO; ATYPICAL LYMPHOCYTE FLAG 130 (0-99)
[2017-06-30 07:50] LABS: ALBUMIN 2.5 g/dL (3.5-5.0); ANION GAP 10 mEq/L (8-16); CALCIUM 8.2 mg/dL (8.5-10.4); CARBON DIOXIDE 18 mEq/l (22-31); CHLORIDE 107 mEq/L (97-110); CREATININE 1.9 mg/dL (0.7-1.3); GLOMERULAR FILTRATION RATE 36; GLUCOSE 92 mg/dL (70-100); POTASSIUM 4.1 mEq/L (3.5-5.2); SODIUM 135 mEq/L (134-144)
[2017-06-30 08:13] LABS: MACROCYTES 1+; PLATELET ESTIMATE DECREASED (ADEQ)
[2017-06-30] MEDS: MULTIVITAMINS 1 EACH TAB PO SCH (09:08)
[2017-06-30] MEDS: POTASSIUM CL 10 MEQ TAB PO SCH (09:08)
[2017-06-30] MEDS: CARVEDILOL 3.125 MG TAB PO SCH ×2 (09:08→18:33)
[2017-06-30] MEDS: cefTRIAXone 2 GM in D5W 50 ML IV SCH (10:16)
[2017-06-30] MEDS: HYDROCODONE/APAP 5/325 TAB PO PRN ×2 (10:17→18:33)
[2017-06-30] MEDS: FUROSEMIDE 40 MG/4 ML VIAL IVP SCH (10:17)
--- NOTE | 2017-06-30 11:46 | SOAPPROG ---
SOAP Progress Note Assessment/Plan: Assessment: 61 yo well known to me with recurrent cellulitus and bacteremia Leg continues to improve. Spandagrip 12-24 hours per day. 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 Will refer for outpatient lymphadema therapy. Prescription and card given to patient S: Feeling better today O: erythema is less intense and it is less warm. Less edema today - No big changes Plan: 06/27/17 07:27 06/28/17 12:10 06/29/17 10:54 06/30/17 11:45 Objective: Vital Signs Temp Pulse Resp BP Pulse Ox 36.4 C 71 19 144/76 H 97 06/30/17 11:16 06/30/17 11:16 06/30/17 11:16 06/30/17 11:16 06/30/17 11:16 Microbiology 06/25/17 06:58 Blood Culture - Final Blood Laboratory Results 06/30/17 05:30 06/30/17 05:30 06/29/17 06/30/17 07/01/17 05:59 05:59 05:59 Intake Total 1005 1174 Output Total 2925 1140 Balance -1920 34 PT 24.9 SEC (12.0-15.0) H 06/29/17 05:47 INR 2.23 (0.83-1.16) H 06/29/17 05:47 ICD10 Worksheet Patient Problems: Problems Problem Status Onset Bacteremia Acute Cellulitis Acute Fever Acute Sepsis Acute Alcohol intoxication Acute Altered mental status Acute Cellulitis Acute Dizziness Acute Dyspnea Acute Hypotension Acute MRSA (methicillin resistant Staphylococcus aureus) Acute ~06/09/17 Necrotizing fasciitis Acute Sepsis Acute
--- NOTE | 2017-06-30 13:09 | WOCRNPDOC ---
WOCRN Advanced Assessment Note - Skin Integrity Problem, Advanced Assess Bilateral Lower Leg Venous Dermatitis Dressing Type: Open to Air Exudate Amount: Minimal Exudate Color: Yellow Exudate Characteristic(s): Serous Integumentary Issue Intervention: Dressing Applied (SpandaGrip size G), Lotion/ Cream Applied (Skin Repair Cream) Charlene Wound Tissue: Intact, Scaly, Taught, Xerotic Site Measurement - Head-to-Toe Length X Width X Depth (cm): RLE calf circumference=54.5 cm. LLE calf circumference=55 cm Lymphedema Present: Yes (Patient received referral from Dr. Arechiga for Manual Lymph Drainage post-DC.) Peripheral Edema Location & Description: bilateral LEs and feet Skin Integrity Problem Comment: Saw patient with Dr. Arechiga for replacement of SpandaGrips damaged by lymphatic drainage seeping from LEs. Applied Skin Repair Cream to intact dry skin prior to placement of new SpandaGrips. JUDITH Kasper present for care.
--- NOTE | 2017-06-30 13:32 | PCMIDPN ---
Assessment/Plan: Assessment/Plan: * MRSA bacteremia: Completing course of daptomycin. Anticipate therapy through 07/12/2017. Follow weekly CBC, CMP and CPK. * Klebsiella pneumoniae bacteremia: Likely associated with recurrent left lower extremity cellulitis. Bacteremia cleared rapidly which suggest unlikely PICC associated. Think can retained current PICC line. Plan therapy through 07/11/2017 with ceftriaxone. * Diarrhea: Intermittent diarrhea remains present. Given intermittent nature, will hold off on testing for C difficile as suspect this is unlikely etiology. 06/30/17 13:29 Subjective: Patient feels better. Less lower extremity discomfort. Objective: Vital Signs Temp Pulse Resp BP Pulse Ox 36.4 C 71 19 144/76 H 97 06/30/17 11:16 06/30/17 11:16 06/30/17 11:16 06/30/17 11:16 06/30/17 11:16 Microbiology 06/25/17 06:58 Blood Culture - Final Blood Laboratory Results 06/30/17 05:30 06/30/17 05:30 06/29/17 06/30/17 07/01/17 05:59 05:59 05:59 Intake Total 1005 1174 Output Total 2925 1140 Balance -1920 34 Daptomycin (End date 07/12/2017) Ceftriaxone # 4 (end date 07/11/2017) Blood cultures 06/27/2017 no growth - Physical Exam General Appearance: alert, no apparent distress EENT: scleral icterus ( faint), No thrush Cardiac/Chest: regular rate, rhythm, systolic murmur ( 2/6 left upper sternal border) Extremities: other ( compression stockings in place) Abdomen: non-tender, No distended ICD10 Worksheet Patient Problems: Problems Problem Status Onset Bacteremia Acute Cellulitis Acute Fever Acute Sepsis Acute Alcohol intoxication Acute Altered mental status Acute Cellulitis Acute Dizziness Acute Dyspnea Acute Hypotension Acute MRSA (methicillin resistant Staphylococcus aureus) Acute ~06/09/17 Necrotizing fasciitis Acute Sepsis Acute
--- NOTE | 2017-06-30 14:32 | HOSPPROG ---
Hospitalist Progress Note Assessment/Plan: assessment: 61-year-old male presents with sepsis secondary to Klebsiella bacteremia complicated by acute kidney injury on chronic kidney disease stage 3 Plan: 1. Sepsis. Present on admission, evidenced by hypotension, leukocytosis, fever , evidence of end-organ failure notably acute kidney injury demonstrating autonomic dysregulation in the setting of infection -resolved 2. Klebsiella bacteremia. Most likely source is cellulitis of left lower extremity was most likely not present at time of last discharge as he had no leukocytosis or fever at that time -continue on IV ceftriaxone, stop date 07/11/17 -monitor diarrhea, w/ normal WBC doubt CDiff -d/w Dr. Cunningham, since bacteremia cleared appropriately, he does not recommend changing PICC 3. Cellulitis. Left lower extremity, evidenced by erythema, excoriations lending themselves to bacterial invasion and resulting in bacteremia -per Dr. Arechiga, lymphedema outpt tx 4. Acute kidney injury on chronic kidney disease stage 3. most likely secondary to hypoperfusion in the setting of sepsis with rising creatinine level from previous discharge value -history of nephrectomy renal cell carcinoma, solitary kidney -patient remains hypervolemic, net even o/n -d/w Dr. Gutierrez and counseled patient, we agreed to adjust lasix to oral dosing in preparation for discharge, gauge response to dose, and, if unable to achieve slight net neg status, will introduce metolazone several times weekly 5. Hyponatremia. Acute, secondary to renal hypoperfusion in the setting of hypovolemia and kidney injury 6. Recent MRSA bacteremia. Continue on daptomycin 7. Cirrhosis. Chronic, synthetic function impaired Diet. Low-salt Prophylaxis. High risk patient, INR 2.2 Code. Full Disposition. Anticipated discharge 07/01, pending response to diuretic adjustment Subjective: patient reports fatigue, 2 loose BMs today Objective: Vital Signs Temp Pulse Resp BP Pulse Ox 36.4 C 71 19 144/76 H 97 06/30/17 11:16 06/30/17 11:16 06/30/17 11:16 06/30/17 11:16 06/30/17 11:16 Microbiology 06/25/17 06:58 Blood Culture - Final Blood Laboratory Results 06/30/17 05:30 06/30/17 05:30 06/29/17 06/30/17 07/01/17 05:59 05:59 05:59 Intake Total 1005 1174 Output Total 2925 1140 Balance -1920 34 PT 24.9 SEC (12.0-15.0) H 06/29/17 05:47 INR 2.23 (0.83-1.16) H 06/29/17 05:47 - Physical Exam Constitutional: no apparent distress, not in pain, obese, No uncomfortable Cardiovascular: regular rate and rhythym, no murmur, rub, or gallop, edema (2+ bilat LE), No irregularly irregular Respiratory: no respiratory distress, no rales or rhonchi, clear to auscultation Gastrointestinal: normoactive bowel sounds, distension (moderate), No tenderness , No guarding Neurologic: AAOx3, No facial droop Psychiatric: interacting appropriately, not anxious, not encephalopathic, thought process linear, other (lethargic) ICD10 Worksheet Patient Problems: Problems Problem Status Onset Bacteremia Acute Cellulitis Acute Fever Acute Sepsis Acute Alcohol intoxication Acute Altered mental status Acute Cellulitis Acute Dizziness Acute Dyspnea Acute Hypotension Acute MRSA (methicillin resistant Staphylococcus aureus) Acute ~06/09/17 Necrotizing fasciitis Acute Sepsis Acute
[2017-06-30] MEDS: FUROSEMIDE 80 MG TAB PO SCH (15:38)
[2017-06-30] MEDS: DAPTOMYCIN IV SCH (17:32)
[2017-06-30] MEDS: NS IV SCH (17:32)
[2017-07-01 06:03] LABS: ALBUMIN 2.2 g/dL (3.5-5.0); ANION GAP 6 mEq/L (8-16); CALCIUM 8.4 mg/dL (8.5-10.4); CARBON DIOXIDE 20 mEq/l (22-31); CHLORIDE 107 mEq/L (97-110); CREATININE 1.7 mg/dL (0.7-1.3); GLOMERULAR FILTRATION RATE 41; GLUCOSE 91 mg/dL (70-100); SODIUM 133 mEq/L (134-144)
[2017-07-01] MEDS: MULTIVITAMINS 1 EACH TAB PO SCH (08:26)
[2017-07-01] MEDS: POTASSIUM CL 10 MEQ TAB PO SCH (08:26)
[2017-07-01] MEDS: CARVEDILOL 3.125 MG TAB PO SCH ×2 (08:26→17:49)
[2017-07-01] MEDS: FUROSEMIDE 80 MG TAB PO SCH ×2 (08:29→15:47)
[2017-07-01] MEDS: cefTRIAXone 2 GM in D5W 50 ML IV SCH (08:29)
[2017-07-01] MEDS: HYDROCODONE/APAP 5/325 TAB PO PRN (08:33)
[2017-07-01 10:42] LABS: HEMATOCRIT 25.1 % (40.0-51.0); HEMOGLOBIN 8.6 g/dL (13.7-17.5); MEAN CELL HEMOGLOBIN 36.9 pg (27.9-34.1); MEAN CELL HEMOGLOBIN CONCENTR. 34.3 g/dL (32.4-36.7); MEAN CELL VOLUME 107.7 fL (81.5-99.8); RED BLOOD CELL COUNT 2.33 10^6/uL (4.40-6.38); RED CELL DISTRIBUTION WIDTH 13.8 % (11.5-15.2)
--- NOTE | 2017-07-01 13:19 | SOAPPROG ---
SOAP Progress Note Assessment/Plan: Assessment/Plan: The patient is a 61 y/o M with a known h/o solitary kidney s/p R NTX for RCC with CORTNEY on CKD with volume overload. 1. CORTNEY. -most likely hemodynamic given cirrhosis, pulm HTN, and sepsis -Creat trending down to 1.7 from 1.9 today with good UO -would continue lasix 80mg po BID for goal JINNY 60-80 3h post dose or net negative 1kg daily -Off ACEI, hold upon discharge 2. Cellulitis. +Klebsiella, pansens -ID appreciated -Also on GP coverage with dapto. 3. Mild hyponatremia -diuresis as above -has f/u appointment for nephrology as outpatient next week 4. HTN. Well controlled on coreg currently. 5. NAGMA -may be 2/2 to diarrhea, monitor bicarb and supplement if <20 6. Anemia -less likely 2/2 to CKD -consider iron studies Will sign off, consult appreciated. Please contact if further questions, # 07/01/17 13:20 07/01/17 13:22 07/01/17 13:23 Subjective: Patient lying in bed with . Still seems somewhat confused at times. Making good UO. Denies ROS. Objective: Vital Signs Temp Pulse Resp BP Pulse Ox 36.6 C 70 20 118/58 L 92 07/01/17 12:20 07/01/17 12:20 07/01/17 12:20 07/01/17 12:20 07/01/17 12:20 Microbiology 06/25/17 06:58 Blood Culture - Final Blood Laboratory Results 07/01/17 10:20 07/01/17 05:20 06/30/17 07/01/17 07/02/17 05:59 05:59 05:59 Intake Total 1174 480 Output Total 1140 1400 450 Balance 34 -920 -450 PT 24.9 SEC (12.0-15.0) H 06/29/17 05:47 INR 2.23 (0.83-1.16) H 06/29/17 05:47 Physical Exam - Physical Exam General Appearance: WD/WN, alert, no apparent distress Neck: non-tender, full range of motion, supple Respiratory: decreased breath sounds Cardiac/Chest: normal peripheral pulses, regular rate, rhythm, edema, JVD Abdomen: normal bowel sounds, non-tender, soft, distended Skin: normal color, warm/dry Extremities: normal range of motion, swelling Neuro/Psych: no motor/sensory deficits, alert (, but slightly confused), normal mood/affect ICD10 Worksheet Patient Problems: Problems Problem Status Onset Bacteremia Acute Cellulitis Acute Fever Acute Sepsis Acute Alcohol intoxication Acute Altered mental status Acute Cellulitis Acute Dizziness Acute Dyspnea Acute Hypotension Acute MRSA (methicillin resistant Staphylococcus aureus) Acute ~06/09/17 Necrotizing fasciitis Acute Sepsis Acute
[2017-07-01] MEDS ORDERED: oxyCODONE IR 5 MG TAB PO PRN (14:23)
[2017-07-01] MEDS: LACTULOSE 20 GM/30 ML UDCUP PO SCH ×2 (15:48→21:30)
--- NOTE | 2017-07-01 16:28 | HOSPPROG ---
Hospitalist Progress Note Assessment/Plan: assessment: 61-year-old male presents with sepsis secondary to Klebsiella bacteremia complicated by acute kidney injury on chronic kidney disease stage 3 and acute encephalopathy and suspected GIB Plan: 1. Sepsis. Present on admission, evidenced by hypotension, leukocytosis, fever , evidence of end-organ failure notably acute kidney injury demonstrating autonomic dysregulation in the setting of infection -resolved 2. Klebsiella bacteremia. Most likely source is cellulitis of left lower extremity was most likely not present at time of last discharge as he had no leukocytosis or fever at that time -continue on IV ceftriaxone, stop date 07/11/17 -monitor diarrhea, w/ normal WBC doubt CDiff -d/w Dr. Cunningham, since bacteremia cleared appropriately, he does not recommend changing PICC 3. Cellulitis. Left lower extremity, evidenced by erythema, excoriations lending themselves to bacterial invasion and resulting in bacteremia -per Dr. Arechiga, lymphedema outpt tx at [place] 4. Acute kidney injury on chronic kidney disease stage 3. most likely secondary to hypoperfusion in the setting of sepsis with rising creatinine level from previous discharge value -history of nephrectomy renal cell carcinoma, solitary kidney -patient remains hypervolemic, net neg 900cc o/n -d/w Dr. Lane, we agreed to continue oral dosing, monitor I/O, reduce dose/freq of opiate Rx 5. Hyponatremia. Acute, secondary to renal hypoperfusion in the setting of hypovolemia and kidney injury 6. Recent MRSA bacteremia. Continue on daptomycin 7. Cirrhosis. Chronic, synthetic function impaired 8. Encephalopathy. Acute, new problem, further w/u indicated. Evidenced by global brain dysfunction characterized by somnolence, difficult arousability, poor attention, all of which is an acute change from his baseline, unclear etiology - check ammonia level, empirically give lactulose - reduce dose/freq of opiates given renal/liver impairment - potentially 2/2 GIB, monitor additional 24hrs 9. Suspected acute GIB. Patient reporting dark tarry BMs, send for FOB - recheck coags, BUN, Hgb - unsafe for discharge today Diet. Low-salt Prophylaxis. High risk patient, INR 2.2 Code. Full Disposition. Anticipated discharge uncertain, acute worsening today High medical complexity, high risk of worsening morbidity and/or mortality, secondary to the issues as outlined above. Subjective: Patient is somnolent today, difficult to arouse, poor attention, reports dark tarry bowel movement Objective: Vital Signs Temp Pulse Resp BP Pulse Ox 36.6 C 70 20 118/58 L 92 07/01/17 12:20 07/01/17 12:20 07/01/17 12:20 07/01/17 12:20 07/01/17 12:20 Laboratory Results 07/01/17 10:20 07/01/17 05:20 06/30/17 07/01/17 07/02/17 05:59 05:59 05:59 Intake Total 1174 480 Output Total 1140 1400 450 Balance 34 -920 -450 PT 24.9 SEC (12.0-15.0) H 06/29/17 05:47 INR 2.23 (0.83-1.16) H 06/29/17 05:47 - Physical Exam Constitutional: no apparent distress, not in pain, chronically ill appearing, obese, No uncomfortable Cardiovascular: edema ( 2+ bilateral lower extremities), No systolic murmur ( distant heart sounds), No irregularly irregular, No tachycardia Skin: other ( hyperpigmentation bilateral lower extremities with linear scratches across his right lower extremity and dry flaking excoriations, posterior aspect of left lower extremity has some scabbed areas with some surrounding blanching bili but no particular erythema, no pustulant drainage) Neurologic: other ( alert awake oriented x2 to person and place, not time), No weakness ( motor strength is 5/5 bilateral upper and lower extremities), No facial droop Psychiatric: not anxious, encephalopathic, flat affect, other ( somnolent but arousable to verbal stimuli), No agitated ICD10 Worksheet Patient Problems: Problems Problem Status Onset Bacteremia Acute Cellulitis Acute Fever Acute Sepsis Acute Alcohol intoxication Acute Altered mental status Acute Cellulitis Acute Dizziness Acute Dyspnea Acute Hypotension Acute MRSA (methicillin resistant Staphylococcus aureus) Acute ~06/09/17 Necrotizing fasciitis Acute Sepsis Acute
[2017-07-01 17:27] LABS: BASE EXCESS -4.4 mEq/L (-2.5-2.5); BICARBONATE 18 mEq/L (22-26); MEASURED OXYGEN SATURATION 96 % (92-95); PCO2 28 mmHg (34-38); PO2 84 mmHg (65-75); TCO2 19 mEq/L (23-27)
[2017-07-01 17:28] LABS: O2 CONCENTRATIION ROOM AIR % (0-100); P/F RATIO 0 RATIO
[2017-07-01] MEDS: NS IV SCH (17:49)
[2017-07-01] MEDS: DAPTOMYCIN IV SCH (17:49)
[2017-07-02 06:16] LABS: % IMMATURE GRANULYOCYTES 0.7 % (0.0-1.1); ABSOLUTE IMMATURE GRANULOCYTES 0.04 10^3/uL (0.00-0.10); ADD DIFF? NO; ADD MORPH? NO; ADD SCAN? YES; APTT 45.6 SEC (23.0-38.0); FRAGMENT RBC FLAG 0 (0-99); HEMATOCRIT 25.1 % (40.0-51.0); HEMOGLOBIN 8.6 g/dL (13.7-17.5); INR 2.33 (0.83-1.16); LEFT SHIFT FLG 0 (0-99); LIPEMIA HEMOLYSIS FLAG 90 (0-99); MEAN CELL HEMOGLOBIN 36.6 pg (27.9-34.1); MEAN CELL HEMOGLOBIN CONCENTR. 34.3 g/dL (32.4-36.7); MEAN CELL VOLUME 106.8 fL (81.5-99.8); MEAN PLATELET VOLUME 11.6 fL (8.7-11.7); PLATELET CLUMPS FLAG 10 (0-99); PLATELET COUNT 72 10^3/uL (150-400); PROTIME(PATIENT) 25.8 SEC (12.0-15.0); RED BLOOD CELL COUNT 2.35 10^6/uL (4.40-6.38); RED CELL DISTRIBUTION WIDTH 13.6 % (11.5-15.2)
[2017-07-02 06:19] LABS: ATYPICAL LYMPHOCYTE FLAG 200 (0-99)
[2017-07-02 06:31] LABS: ALANINE AMINOTRANSFERASE 64 IU/L (21-72); ALBUMIN 2.3 g/dL (3.5-5.0); ALKALINE PHOSPHATASE 85 IU/L (38-126); ANION GAP 9 mEq/L (8-16); ASPARTATE AMINOTRANSFERASE 86 IU/L (17-59); BILIRUBIN,TOTAL 2.2 mg/dL (0.1-1.4); CARBON DIOXIDE 19 mEq/l (22-31); CHLORIDE 105 mEq/L (97-110); CREATININE 1.5 mg/dL (0.7-1.3); GLOMERULAR FILTRATION RATE 48; GLUCOSE 91 mg/dL (70-100); SODIUM 133 mEq/L (134-144); TOTAL PROTEIN 5.6 g/dL (6.3-8.2)
[2017-07-02 06:38] LABS: BILIRUBIN-CONJUGATED 1.1 mg/dL (0.0-0.5); BILIRUBIN-UNCONJUGATED 1.1 mg/dL (0.0-1.1)
[2017-07-02 07:04] LABS: SCAN NEGATIVE
[2017-07-02] MEDS: MULTIVITAMINS 1 EACH TAB PO SCH (08:37)
[2017-07-02] MEDS: CARVEDILOL 3.125 MG TAB PO SCH (08:37)
[2017-07-02] MEDS: FUROSEMIDE 80 MG TAB PO SCH ×2 (08:37→14:51)
[2017-07-02] MEDS: POTASSIUM CL 10 MEQ TAB PO SCH (08:37)
[2017-07-02] MEDS: LACTULOSE 20 GM/30 ML UDCUP PO SCH (08:38)
[2017-07-02] MEDS: cefTRIAXone 2 GM in D5W 50 ML IV SCH (08:47)
--- NOTE | 2017-07-02 10:06 | SOAPPROG ---
SOAP Progress Note Assessment/Plan: Assessment: 61 yo well known to me with recurrent cellulitus and bacteremia Leg continues to improve. Spandagrip 12-24 hours per day. 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 Will refer for outpatient lymphadema therapy. Prescription and card given to patient Order faxed Care plan discussed with Mr. Betancourt and his and Dr. Do S: Feeling better today O: erythema and edema stable. Pain improved Plan: 06/27/17 07:27 06/28/17 12:10 06/29/17 10:54 06/30/17 11:45 07/02/17 10:05 Objective: Vital Signs Temp Pulse Resp BP Pulse Ox 37.1 C 66 19 135/50 H 93 07/02/17 08:00 07/02/17 08:37 07/02/17 08:00 07/02/17 08:37 07/02/17 08:00 Laboratory Results 07/02/17 05:50 07/02/17 05:50 07/01/17 07/02/17 07/03/17 05:59 05:59 05:59 Intake Total 480 1520 Output Total 1400 1350 Balance -920 170 PT 25.8 SEC (12.0-15.0) H 07/02/17 05:50 INR 2.33 (0.83-1.16) H 07/02/17 05:50 ICD10 Worksheet Patient Problems: Problems Problem Status Onset Bacteremia Acute Cellulitis Acute Fever Acute Sepsis Acute Alcohol intoxication Acute Altered mental status Acute Cellulitis Acute Dizziness Acute Dyspnea Acute Hypotension Acute MRSA (methicillin resistant Staphylococcus aureus) Acute ~06/09/17 Necrotizing fasciitis Acute Sepsis Acute
--- NOTE | 2017-07-02 10:12 | PCMIDPN ---
Assessment/Plan: Assessment/Plan: 1. Klebsiella bacteremia with recurrent LLE cellulitis: - On Ceftriaxone. - f/u blood cx from 06/27/17 ngtd - cellulitis is improving - Plan for 14 days of therapy from negative cx which will be around 07/11/17 - will set up f/u appt in office for 07/10/17 -[facility] filled out. -Plan of care reviewed with patient, , -care coordinated with Dr. Robert and Dr. Arechiga 2. MrSA bacteremia: - on Dapto - Cx were positive from 06/09,06/11,06/13. -f/u blood cx from 06/14, 06/16 and certainly this admit are not showing recurrent or persistent mrsa bacteremia - Plan is for 4 weeks of therapy from first negative cx. - Tentative end date 07/12/17. Meds dapto 700mg daily Ceftriaxone 2g daily Objective: Vital Signs Temp Pulse Resp BP Pulse Ox 37.1 C 66 19 135/50 H 93 07/02/17 08:00 07/02/17 08:37 07/02/17 08:00 07/02/17 08:37 07/02/17 08:00 Laboratory Results 07/02/17 05:50 07/02/17 05:50 07/01/17 07/02/17 07/03/17 05:59 05:59 05:59 Intake Total 480 1520 Output Total 1400 1350 Balance -920 170 - Time Spent With Patient Time Spent with Patient: greater than 35 minutes Time Spent with Patient: Greater than 35 minutes spent on this patients care, greater than 50% of time spent counseling, educating, and coordinating care regarding the above mentioned plan. ICD10 Worksheet Patient Problems: Problems Problem Status Onset Bacteremia Acute Cellulitis Acute Fever Acute Sepsis Acute Alcohol intoxication Acute Altered mental status Acute Cellulitis Acute Dizziness Acute Dyspnea Acute Hypotension Acute MRSA (methicillin resistant Staphylococcus aureus) Acute ~06/09/17 Necrotizing fasciitis Acute Sepsis Acute
--- NOTE | 2017-07-02 11:18 | PDIAF ---
- Diagnosis Diagnosis: Klebsiella bacteremia, lymphedema, CKD Stage III, cirrhosis Code Status: Full Code - Medication Management Discharge Medications: Medications to Continue on Transfer Multivitamins [Multivitamin (*)] 1 each PO DAILY 07/16/16 [Last Taken 06/24/17] Carvedilol [Coreg (*)] 3.125 mg PO BIDMEAL #60 tab 06/22/17 [Last Taken 20:00] Potassium Chloride 10 meq PO DAILY #30 tab.prt.sr 06/22/17 [Last Taken 06/24/17] DAPTOmycin [Cubicin 500mg vial (*)] 700 mg IV DAILY@17 06/25/17 [Last Taken ] Furosemide [Lasix 80 MG (*)] 80 mg PO BID@0900,1500 #60 tab 07/02/17 [Last Taken Unknown] Lactulose 10 gm PO BID PRN #30 07/02/17 [Last Taken 06/24/17 09:00] cefTRIAXone [Rocephin] 2 gm IV DAILY #9 vial 07/02/17 [Last Taken Unknown] oxyCODONE IR [Oxycodone Ir (*)] 2.5 - 5 mg PO Q6 PRN #40 tab 07/02/17 [Last Taken Unknown] Nursing Home Antibiotics: Daptomycin 700mg IV @ 5p daily, Ceftriaxone 2g IV daily Insurance And Financial Services Agent Antibiotic Stop Date: 07/11/17 (Ceftriaxone stop 07/11, Dapto stop 07/12 ) Discharge Medications: Refer to the Discharge Home Medication list for PRN reason. PICC Care - Routine: Yes - Orders Services needed: Home Care, Registered Nurse, Physical Therapy Home Care Face to Face: I certify that this patient was under my care and that I had the required [id number] encounter meeting the encounter requirements on the discharge day. My findings support the fact that the patient is homebound as defined in CMS Chapter 7 Medicare Benefits Manual 30.1.1, The condition of the patient is such that there exists a normal inability to leave home and consequently, leaving home would require a considerable and taxing effort. Oxygen: NA Diet Recommendation: cardiac -low fat low salt Weigh Patient: daily Hinkle: Not applicable Wound Care Instructions: Spandagrip for 12-24hrs a day Activity/Weight Bearing Restrictions: as tolerated with walker - Labs/Radiology CBC Date: 07/04/17 (weekly) CMP Date: 07/04/17 (weekly) CPK Date: 07/04/17 (weekly) Call or Fax Lab and Imaging Results to: [facility] - Follow Up Care Current Providers and Referrals: SCOTT PALACIO [Other] - As per Instructions Anthony Abreu MD [Medical Doctor] - 07/10/17 11:00 am (f/u with Dr. Abreu ( INfectious diseases) at 11:00am. Check in time: 10:40am. Thanks. ) Dario Lane DO [Doctor of Osteopathy] - (this Saturday as scheduled) Madhav Brooke [Medical Doctor] - follow up in 2 weeks
--- NOTE | 2017-07-02 11:43 | PDDCSUM ---
Discharge Summary Discharge Summary: DISCHARGE SUMMARY FOLLOW-UP ITEMS: Repeat CMP, CBC, CPK this DATE OF ADMISSION: 06/25/2017 DATE OF DISCHARGE: 07/02/2017 DISCHARGE DIAGNOSES: 1. Sepsis present on admission 2. Klebsiella bacteremia 3. Left lower extremity cellulitis 4. Acute kidney injury on chronic kidney disease stage 3 5. Acute hyponatremia 6. Recent MRSA bacteremia 7. Chronic cirrhosis 8. Acute encephalopathy 9. Chronic pain with continuous opiate dependency CONSULTATIONS: Infectious Disease, Nephrology PROCEDURES / IMAGING: Lower extremity MRI demonstrating no evidence of necrotizing fasciitis CHIEF COMPLAINT: Acute chills, fatigue SUBJECTIVE: Patient is feeling well at time of discharge, his pain is well managed PHYSICAL EXAM ON DISCHARGE: Systolic blood pressure 130, heart rate 70, afebrile overnight, satting on room air, alert awake oriented x3, conversant, not in pain, bilateral 2+ lower extremity edema, left greater than right, with the appearance of the left lower extremity with margins demonstrating blanchable bili, not particularly erythematous, several areas of scabbed sores on the posterior aspect of his leg without any surrounding erythema or pustulant drainage, some scratched areas of excoriations on proximal aspect of his right lower extremity with some dry skin flaking LABS ON DISCHARGE: Creatinine 1.5, BUN 30, serum bicarb 19, serum sodium 133, potassium 4, white blood count 5500, hemoglobin 8.6, platelets 46977, INR 2.3, total bilirubin 2.2 HOSPITAL COURSE BY PROBLEM: 1. Sepsis. Present on admission, evidenced by hypotension, leukocytosis, fever , evidence of end-organ failure notably acute kidney injury demonstrating autonomic dysregulation in the setting of infection. He received empiric IV fluids and IV antibiotics. 2. Klebsiella bacteremia. The initiating event of the patient's sepsis with Klebsiella bacteremia and most likely source is left lower extremity. The patient's infection is new and has evolved since the patient's most recent discharge. Of note at the time of the patient's last discharge, he had no leukocytosis or fever. On his presentation here he had both. Once Klebsiella was identified as the infectious organism, the patient's coverage was narrowed to IV ceftriaxone and stop date is 07/11. He will see Dr. Abreu in follow-up next week. Since the patient's bacteremia cleared appropriately, he did not receive PICC line changing. 3. Left lower extremity cellulitis. Evidenced by erythema at the margins, excoriations landing themselves to bacterial invasion and resulting in bacteremia. The patient is predisposed to infection him the bilateral lower extremities secondary to lymphedema. He was seen in consultation by Dr. Arechiga who recommended outpatient lymphedema therapy. She also recommended intermittent pressure wraps. At the time of discharge, the patient's cellulitis in his left lower extremity seems to be well managed. 4. Acute kidney injury on chronic kidney disease stage 3. Most likely secondary to her renal hypoperfusion in the setting of sepsis with rising creatinine level from previous discharge value. Should also be noted that the patient has a history of nephrectomy from renal cell carcinoma and has a solitary kidney. Careful titration of diuretics was performed after the patient received stabilization with IV fluids for his sepsis. Assistance was provided through the Nephrology service. The patient ended up balancing out at 80 mg of Lasix twice daily, maintaining net even to slightly negative fluid balance daily. He will have repeat electrolytes drawn in 2 days in follow-up in the Nephrology Clinic on Saturday. 5. Chronic pain with continuous opiate dependency. The patient has chronic pain in his bilateral lower extremities secondary to lymphedema and pressure. He has chronically been maintained on oral opiate pain medications and during this hospitalization he experienced some toxic encephalopathy from them. Given his underlying renal and liver dysfunction, we recommended reducing the dosage is and education was provided to the patient his regarding this issue prior to discharge. I recommend no more than 2.5-5 mg every 6 hours of oxycodone immediate release. 6. Acute hyponatremia. Secondary to renal hypoperfusion in the setting of hypovolemia and kidney injury. He will have repeat electrolytes performed this an outpatient nephrology appointment on Saturday. 7. Recent MRSA bacteremia. Patient was continued on daptomycin, stop date is 8. Chronic cirrhosis. Patient's synthetic function is impaired resulting in anemia, thrombocytopenia, coagulopathy, chronically elevated total bilirubin level. Patient has seen Dr. Brooke twice in the past and I recommend that he follow up with Dr. Brooke in 2 weeks. 9. Acute encephalopathy. Evidenced by global brain dysfunction characterized as somnolence, difficulty arousability, poor attention, all of which is an acute change from his baseline occurred on , resulting in extended hospitalization and further workup to rule out hepatic encephalopathy. Ammonia level was normal, most likely etiology was toxic effects opiates accumulating in the system in the setting of renal and liver dysfunction. Consequently, we reduced his opiate dosage and his mental status improved. DISCHARGE MEDICATIONS: Please see official discharge medication reconciliation sheet in chart , oxycodone 2.5-5 mg as needed q.6 hours, Lasix 80 mg twice daily, carvedilol 3.125 mg twice daily, discontinuation of amlodipine, discontinuation of lisinopril hydrochlorothiazide, ceftriaxone 2 g IV daily through 07/11/2017. Daptomycin 750 mg daily at 5:00 p.m. through 07/12/2017. DISCHARGE INSTRUCTIONS: Please follow up with Nephrology clinic on Saturday, follow up with Infectious Disease Clinic on Saturday, schedule follow-up appointment with Dr. Brooke thereafter as well as lymphedema clinic. TIME SPENT: Greater than 30 minutes were spent on direct patient care, as well as discharge planning and preparation.
--- NOTE | 2017-07-02 11:44 | PDIAF ---
- Diagnosis Diagnosis: Klebsiella bacteremia, lymphedema, CKD Stage III, cirrhosis Code Status: Full Code - Medication Management Discharge Medications: Medications to Continue on Transfer Multivitamins [Multivitamin (*)] 1 each PO DAILY 07/16/16 [Last Taken 06/24/17] Carvedilol [Coreg (*)] 3.125 mg PO BIDMEAL #60 tab 06/22/17 [Last Taken 20:00] Potassium Chloride 10 meq PO DAILY #30 tab.prt.sr 06/22/17 [Last Taken 06/24/17] DAPTOmycin [Cubicin 500mg vial (*)] 700 mg IV DAILY@17 06/25/17 [Last Taken ] Furosemide [Lasix 80 MG (*)] 80 mg PO BID@0900,1500 #60 tab 07/02/17 [Last Taken Unknown] Lactulose 10 gm PO BID PRN #30 07/02/17 [Last Taken 06/24/17 09:00] cefTRIAXone [Rocephin] 2 gm IV DAILY #9 vial 07/02/17 [Last Taken Unknown] oxyCODONE IR [Oxycodone Ir (*)] 2.5 - 5 mg PO Q6 PRN #40 tab 07/02/17 [Last Taken Unknown] Correction Antibiotics: Daptomycin 700mg IV @ 5p daily, Ceftriaxone 2g IV daily Field Services Manager Antibiotic Stop Date: 07/11/17 (Ceftriaxone stop 07/11, Dapto stop 07/12 ) Discharge Medications: Refer to the Discharge Home Medication list for PRN reason. PICC Care - Routine: Yes - Orders Services needed: Home Care, Registered Nurse, Physical Therapy Home Care Face to Face: I certify that this patient was under my care and that I had the required [id number] encounter meeting the encounter requirements on the discharge day. My findings support the fact that the patient is homebound as defined in CMS Chapter 7 Medicare Benefits Manual 30.1.1, The condition of the patient is such that there exists a normal inability to leave home and consequently, leaving home would require a considerable and taxing effort. Oxygen: NA Diet Recommendation: cardiac -low fat low salt Weigh Patient: daily Hinkle: Not applicable Wound Care Instructions: Spandagrip for 12-24hrs a day Activity/Weight Bearing Restrictions: as tolerated with walker - Labs/Radiology CBC Date: 07/04/17 (qmondays) CMP Date: 07/04/17 (qm) CPK Date: 07/04/17 (q mondays) Call or Fax Lab and Imaging Results to: [facility] - Follow Up Care Current Providers and Referrals: SCOTT PALACIO [Other] - As per Instructions Dario Lane DO [Doctor of Osteopathy] - (this Saturday as scheduled) Madhav Brooke [Medical Doctor] - follow up in 2 weeks Anthony Abreu MD [Medical Doctor] - 07/10/17 11:00 am (f/u with Dr. Abreu ( INfectious diseases) at 11:00am. Check in time: 10:40am. Thanks. )
[2017-07-02 13:15] VITALS: BP 124/51; PULSE 70; RESP 17; TEMP 99.1; O2SAT 90
[2017-07-02] MEDS: NS IV SCH (14:23)
[2017-07-02] MEDS: DAPTOMYCIN IV SCH (14:23)
== END 2017-07-02 15:27 | disposition home health service (06) | DRG 871 ==
LOC: F2W 08:15
PROVIDERS: ADMIT Internal Medicine; ATTEND Internal Medicine
DX: A41.89 Other specified sepsis (principal); G93.49 Other encephalopathy; N17.9 Acute kidney failure, unspecified; E87.1 Hypo-osmolality and hyponatremia; L03.116 Cellulitis of left lower limb; F11.20 Opioid dependence, uncomplicated; B96.1 Klebsiella pneumoniae [K. pneumoniae] as the cause of diseases classified elsewhere; N18.3 Chronic kidney disease, stage 3 (moderate); Z86.14 Personal history of Methicillin resistant Staphylococcus aureus infection; K74.60 Unspecified cirrhosis of liver; G89.29 Other chronic pain; G47.33 Obstructive sleep apnea (adult) (pediatric); Z86.711 Personal history of pulmonary embolism
CPT/HCPCS: 96365; A9585; J0696; J0878; J1650; J1940; J2543

== ENCOUNTER → 2017-08-27 | Outpatient (CLI) | payer OTHER | LOC: CIMAGING 08:44 | PROVIDERS: ATTEND Internal Medicine | DX: K76.89 Other specified diseases of liver (principal); R16.1 Splenomegaly, not elsewhere classified; K80.20 Calculus of gallbladder without cholecystitis without obstruction; Z90.5 Acquired absence of kidney | CPT/HCPCS: 76700-PO ==

== ENCOUNTER 2018-09-22 11:27 | Day surgery (SDC) | payer OTHER ==
[2018-09-22] MEDS ORDERED: LR 1,000 ML IV ONE (11:31)
[2018-09-22] MEDS ORDERED: LIDOCAINE 1% 2 ML INJ ID PRN (11:31)
[2018-09-22] MEDS ORDERED: fentaNYL 100 MCG/2 ML INJ ONE (12:45)
[2018-09-22] MEDS ORDERED: PROPOFOL/EMULSION 500 MG/50 ML BOTTLE IV ONE (12:45)
--- NOTE | 2018-09-22 13:26 | GIREPORT ---
Formerly [facility] Surgical Services - Endoscopy Department Patient Name: Nate Betancourt Procedure Date: 09/22/2018 12:56 PM Patient Type: Outpatient Attending MD/ ER Physician: Axel Shaver MD Procedure: Upper GI endoscopy Indications: Cirrhosis with suspected esophageal varices Patient Profile: 63 year old male with a hsitory of cryptogenic cirrhosis presents for surveillance of known esophageal varices. Providers: Axel Shaver MD Medicines: Monitored Anesthesia Care Complications: No immediate complications. Estimated blood loss: Minimal. Description of Procedure: After obtaining informed consent, the endoscope was passed under direct vision. Throughout the procedure, the patient's blood pressure, pulse, and oxygen saturations were monitored continuously. The Endoscope was intro duced through the mouth, and advanced to the second part of duodenum. The up er GI endoscopy was accomplished without difficulty. The patient tolerated th e procedure well. Findings: Grade I esophageal varices. The Z-line was irregular with columnar appearing epithelium extending a bout 1.5cms into the tubular esophagus. Biopsies were taken with a cold forc eps for histology. A hiatal hernia was present. Patchy mildly erythematous mucosa was found in the gastric body and in the gastric antrum. Biopsies were taken with a cold forceps for histology. The examined duodenum was normal. Estimated Blood Loss: Estimated blood loss was minimal. Post Op Diagnosis: - Z-line irregular. Crowder's? Biopsied. - Grade I esophageal varices. - Hiatal hernia. - Erythematous mucosa in the gastric body and antrum. Biopsied. - Normal examined duodenum. Recommendation: - Discharge patient to home (with escort). - Advance diet as tolerated. - Continue present medications. - Await pathology results. - Repeat upper endoscopy in 1 year for surveillance. - Thank you for allowing me to participate in the care of your patient. Attending Participation: I personally performed the entire procedure. Axel Shaver MD Axel Shaver MD 09/22/2018 1:25:52 PM This report has been signed electronicallyAxel Shaver MD Number of Addenda: 0 Note Initiated On: 09/22/2018 12:56 PM [email or web address]
[2018-09-22 14:18] VITALS: BP 153/79
== END 2018-09-22 14:17 | disposition home or self-care (01) ==
LOC: FSGY 11:27
PROVIDERS: ATTEND Internal Medicine
DX: I85.00 Esophageal varices without bleeding (principal); K74.69 Other cirrhosis of liver; K44.9 Diaphragmatic hernia without obstruction or gangrene; I10 Essential (primary) hypertension; G47.33 Obstructive sleep apnea (adult) (pediatric); E66.01 Morbid (severe) obesity due to excess calories; Z68.41 Body mass index [BMI] 40.0-44.9, adult
CPT/HCPCS: J2704; J3010